=== PATIENT | male | born 1960 | race Caucasian/White ===

== ENCOUNTER 2021-02-23 11:55 | Emergency (ER) | payer MEDICAID, SELFPAY ==
[2021-02-23 11:57] VITALS: BP 170/117; PULSE 60; RESP 18; TEMP 36.3; O2SAT 96; BMI 31.1
[2021-02-23 12:19] VITALS: O2SAT 96
[2021-02-23] MEDS: morphine 10 MG/ML Syringe SC (13:10)
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
[2021-02-23 13:53] VITALS: BP 179/94; PULSE 75; RESP 18; O2SAT 96
[2021-02-23 14:08] LABS: Anion Gap 2 (5-15); BUN 20 mg/dL (7-18); BUN/Creat Ratio 11.6 RATIO (10-20); Calcium,Total 9.5 mg/dL (8.5-10.1); Chloride 105 mmol/L (98-107); Creatinine, Serum 1.73 mg/dL (0.70-1.30); EST Glomerular Filtration Rate 43 mL/min (>60); Est Glom Filt Rate - Afr Amer 52 mL/min (>60); Estimated Creatinine Clearance 49.84 ml/min; Glucose 93 mg/dL (74-106); Potassium 3.9 mmol/L (3.5-5.1); Sodium Level 139 mmol/L (136-145)
[2021-02-23 14:14] LABS: Prothrombin Time (Protime)PT. 12.5 SECONDS (11.7-14.9)
[2021-02-23 14:15] LABS: Partial Thromboplast Time 30.9 Seconds (24.1-36.2)
[2021-02-23 14:33] VITALS: BP 157/90; PULSE 75; RESP 18; O2SAT 96
--- NOTE | 2021-02-23 14:46 | ED.RN ---
DEENA BARTHOLOMEW NOTIFIED OF TRANSFER.
== END 2021-02-23 15:02 | disposition other institution (70) ==
PROVIDERS: Emergency Provider Emergency Medicine
DX: S22.081A Stable burst fracture of T11-T12 vertebra, initial encounter for closed fracture (principal); S92.902A Unspecified fracture of left foot, initial encounter for closed fracture; V47.0XXA Car driver injured in collision with fixed or stationary object in nontraffic accident, initial encounter; Y93.89 Activity, other specified; Y92.39 Other specified sports and athletic area as the place of occurrence of the external cause; Y99.9 Unspecified external cause status; Z20.822 Contact with and (suspected) exposure to COVID-19; I25.10 Atherosclerotic heart disease of native coronary artery without angina pectoris; I10 Essential (primary) hypertension; E78.5 Hyperlipidemia, unspecified; N40.0 Benign prostatic hyperplasia without lower urinary tract symptoms; K21.9 Gastro-esophageal reflux disease without esophagitis; F32.9 Major depressive disorder, single episode, unspecified; F17.210 Nicotine dependence, cigarettes, uncomplicated; Z79.82 Long term (current) use of aspirin; Z79.02 Long term (current) use of antithrombotics/antiplatelets; Z79.899 Other long term (current) drug therapy; I25.2 Old myocardial infarction; Z95.5 Presence of coronary angioplasty implant and graft
CPT/HCPCS: 80048; 85610; 85730; 87426; 96372; 99285; A4216

== ENCOUNTER → 2023-02-26 | Outpatient (CLI) | payer MEDICAID, SELFPAY ==
[2023-02-26 17:19] LABS: Absolute Lymphocyte Count 1.59 X10^3/uL (0.83-4.51); Absolute Neutrophil Count 5.1 X10^3/uL (2.0-7.7); Basophil# 0.07 X10^3/uL; Basophil% 0.9 % (0-1); Eosinophils% 1.3 % (0-5); Hematocrit 45.7 % (40-54); Hemoglobin 15.2 g/dL (13.0-16.5); Lymphocyte # 1.59 X10^3/ul (0.83-4.51); Lymphocyte % 20.9 % (19-41); Mean Corp Hgb Conc 33.3 g/dL (32-36); Mean Corpuscular Hgb 33.7 pg (27.0-32.0); Mean Corpuscular Volume 101.3 fL (80-94); Mean Platelet Vol. 11.2 fl (6.2-12.0); Monocyte# 0.74 X10^3/uL; Monocyte% 9.7 % (0-10); NRBC Flagged by Analyzer 0 % (0-5); Neutrophil # 5.09 X10^3/uL (2.7-7.7); Neutrophil % 66.9 % (47-70); Platelet Count 296 K/mm3 (150-450); RBC Distribution Width CV 15.5 % (11.6-14.6); RBC Distribution Width SD 57.2 fl (35.1-43.9); Red Blood Count 4.51 M/mm3 (4.6-6.2); White Blood Count 7.6 K/mm3 (4.4-11.0)
[2023-02-26 17:35] LABS: AST(SGOT) 14 U/L (15-37); Alanine Aminotransfer ALT/SGPT 26 U/L (16-61); Albumin, Serum 3.8 g/dL (3.2-5.0); Alkaline Phosphatase 94 U/L (45-117); Anion Gap 5 (5-15); BUN 15 mg/dL (7-18); BUN/Creat Ratio 8.2 RATIO (10-20); Calcium,Total 9.1 mg/dL (8.5-10.1); Chloride 107 mmol/L (98-107); Creatinine, Serum 1.83 mg/dL (0.70-1.30); EST Glomerular Filtration Rate 40 mL/min (>60); Est Glom Filt Rate - Afr Amer 48 mL/min (>60); Globulin 3.7 g/dL (2.2-4.2); Glucose 105 mg/dL (74-106); PSA,Total - Annual Screen 1.13 ng/mL (0.00-4.00); Potassium 4.1 mmol/L (3.5-5.1); Protein, Total 7.5 g/dL (6.4-8.2); Sodium Level 140 mmol/L (136-145)
[2023-02-26 18:05] LABS: Hepatitis C Antibody Non-Reactive (Nonreactive)
== END | disposition home or self-care (01) ==
LOC: POLAB3 16:22
PROVIDERS: Visit Provider Family Medicine Geriatric Medicine
DX: E03.9 Hypothyroidism, unspecified (principal); I48.91 Unspecified atrial fibrillation; E78.5 Hyperlipidemia, unspecified; Z12.5 Encounter for screening for malignant neoplasm of prostate
CPT/HCPCS: 84153; 36415; 80053; 84403; 84443; 85025; 86803; G0103

== ENCOUNTER → 2023-03-27 | Outpatient (CLI) | payer MEDICAID, SELFPAY ==
--- NOTE | 2023-03-28 10:10 | SPIR_ITS ---
Spirometry PFT Testing Spirometry PFT Testing: COMPLETE PULMONARY FUNCTION TEST INTERPRETATION Brief HPI: Patient is a 62-year-old male, currently under the care of Dr. Dukes, who presents to [facility] for complete pulmonary function tests secondary to diagnosis of nicotine dependence. Respiratory therapist reports good effort and reproducible results. Interpretation: Forced expiration spirometry shows no large airways obstructive ventilatory defect with an FEV1 of 110% predicted. There is no significant bronchodilator response by strict ATS criteria. Spirograms are of good quality and plateau normally. The respiratory flow volume loop shows a normal pattern. No previous pulmonary function tests were available for review. Impression: Normal spirometry
== END | disposition home or self-care (01) ==
PROVIDERS: PCP Family Medicine Geriatric Medicine; Referring Provider Family Medicine Geriatric Medicine; Visit Provider Family Medicine Geriatric Medicine
DX: R06.02 Shortness of breath (principal); E11.9 Type 2 diabetes mellitus without complications; I10 Essential (primary) hypertension; E55.9 Vitamin D deficiency, unspecified; E05.90 Thyrotoxicosis, unspecified without thyrotoxic crisis or storm
CPT/HCPCS: 36415; 80061; 84403; 94010; 94060

== ENCOUNTER → 2023-03-27 | Outpatient (CLI) | payer MEDICAID, SELFPAY ==
[2023-03-27 17:44] LABS: Cholesterol 139 mg/dL (200); High Density Lipoprotein 33 mg/dL; Triglycerides 186 mg/dL; Very Low Density Lipoprotein 37 mg/dL (5-40)
== END | disposition home or self-care (01) ==
LOC: POLAB3 15:07
PROVIDERS: PCP Family Medicine Geriatric Medicine; Visit Provider Family Medicine Geriatric Medicine
DX: E78.5 Hyperlipidemia, unspecified (principal); N52.9 Male erectile dysfunction, unspecified
CPT/HCPCS: 36415; 80061; 84403

== ENCOUNTER → 2023-05-30 | Outpatient (CLI) | payer MEDICAID, SELFPAY ==
[2023-05-30 16:16] LABS: Absolute Lymphocyte Count 1.74 X10^3/uL (0.83-4.51); Basophil# 0.12 X10^3/uL; Basophil% 1.6 % (0-1); Eosinophils% 1.3 % (0-5); Hematocrit 48.3 % (40-54); Lymphocyte # 1.74 X10^3/ul (0.83-4.51); Lymphocyte % 22.5 % (19-41); Mean Corp Hgb Conc 33.1 g/dL (32-36); Mean Corpuscular Hgb 32.4 pg (27.0-32.0); Mean Corpuscular Volume 97.8 fL (80-94); Mean Platelet Vol. 11.4 fl (6.2-12.0); Monocyte# 0.79 X10^3/uL; Monocyte% 10.2 % (0-10); NRBC Flagged by Analyzer 0 % (0-5); Neutrophil # 4.95 X10^3/uL (2.7-7.7); Neutrophil % 63.9 % (47-70); Platelet Count 291 K/mm3 (150-450); RBC Distribution Width CV 15.7 % (11.6-14.6); RBC Distribution Width SD 56.6 fl (35.1-43.9); Red Blood Count 4.94 M/mm3 (4.6-6.2); White Blood Count 7.7 K/mm3 (4.4-11.0)
[2023-05-30 19:49] LABS: ALB/GLOB Ratio 0.9 RATIO (0.9-2.4); AST(SGOT) 16 U/L (15-37); Alanine Aminotransfer ALT/SGPT 32 U/L (16-61); Albumin, Serum 3.7 g/dL (3.2-5.0); Alkaline Phosphatase 78 U/L (45-117); Anion Gap 9 (5-15); BUN 21 mg/dL (7-18); BUN/Creat Ratio 11.8 RATIO (10-20); Calcium,Total 8.7 mg/dL (8.5-10.1); Chloride 107 mmol/L (98-107); Cholesterol 275 mg/dL (200); Creatinine, Serum 1.78 mg/dL (0.70-1.30); EST Glomerular Filtration Rate 41 mL/min (>60); Est Glom Filt Rate - Afr Amer 50 mL/min (>60); Globulin 4.3 g/dL (2.2-4.2); Glucose 133 mg/dL (74-106); High Density Lipoprotein 42 mg/dL; Sodium Level 142 mmol/L (136-145); Triglycerides 417 mg/dL
== END | disposition home or self-care (01) ==
LOC: POLAB3 14:55
PROVIDERS: PCP Family Medicine Geriatric Medicine; Visit Provider Family Medicine Geriatric Medicine
DX: R33.9 Retention of urine, unspecified (principal); R53.83 Other fatigue
CPT/HCPCS: 36415; 80053; 80061; 84443; 85025; 87086

== ENCOUNTER → 2023-06-19 | Outpatient (CLI) | payer MEDICAID, SELFPAY ==
[2023-06-19 12:12] LABS: Bacteria 0 SEEN /hpf (None Seen); Mucous, Urine 0 SEEN /hpf (<or=2+); Red Blood Cells-Urine 0 SEEN /hpf (0-5)
[2023-06-19 13:31] LABS: Color, Urine Yellow (Yellow); Glucose, Dipstick Normal (Normal); Ketone-Dipstick Negative (Negative); Leukocyte Esterase-Dipstick 25 /ul (Negative); Nitrite-Dipstick Negative (Negative); Occult Blood-Urine 10 /ul (Negative); Protein-Dipstick 30 mg/dl (Negative); Specific Gravity, Urine 1.015 (1.002-1.030); Urine Bilirubin Dipstick Negative (Negative); Urine Clarity Clear (Clear); Urine Urobilinogen Normal (Normal)
[2023-06-19 13:36] LABS: Hyaline Cast 0-5 SEEN /lpf (0-5); Squamous Epithelial Cells - UA 0-5 SEEN /hpf (0-5); White Blood Cells 0-5 SEEN /hpf (0-5)
== END | disposition home or self-care (01) ==
LOC: LABSPEC 12:05
PROVIDERS: PCP Family Medicine Geriatric Medicine; Visit Provider Family Medicine Geriatric Medicine
DX: N18.32 Chronic kidney disease, stage 3b (principal)
CPT/HCPCS: 81001

== ENCOUNTER → 2023-07-04 | Outpatient (CLI) | payer MEDICAID, SELFPAY ==
--- OUTSIDE RECORDS SUMMARY | 2023-07-04 17:26 | XMS RPT_ITS | CCD ---
Author Name Unknown Address [address] [place] [address] Organization [facility] Care Team Providers Care Cone Runner Name Role Phone Unavailable Primary Care Provider Lamberto Levy Primary Care Provider ELGIN SALMERON, DR MUELLER Primary Care Physician [phone] Unavailable Primary Care Provider Lamberto Levy MD Primary Care Provider [phone] ELGIN SALMERON, DR MUELLER Attending Unavailable ROMAR DO, DR MUELLER Primary Care Unavailable ROMAR DO, DR MUELLER Attending Unavailable ROMAR DO, DR MUELLER Primary Care Unavailable EFRAINAR , DR MUELLER Attending Unavailable ELGIN DO, DR MUELLER Primary Care Unavailable EFRAINAR DO, DR MUELLER Attending Unavailable ROMAR DO, DR MUELLER Primary Care Unavailable EFRAINAR , DR MUELLER Attending Unavailable ELGIN SALMERON, DR MUELLER Primary Care Unavailable Medications Current Medications Medication Drug Class(es) Dates Sig (Normalized) Sig (Original) acetaminophen 325 mg oral tablet (1 source) Start: 05-10-2019 650 mg, Oral, EVERY 4 HOURS PRN, Pain Mild (1-3), Fever, For temp greater than 100.5 F (38 C), Starting 05/10/19 at 1335 Maximum dose of acetaminophen is 4000 mg from all sources in 24 hours. aluminum hydroxide 40 mg/ml / magnesium hydroxide 40 mg/ml / simethicone 4 mg/ml oral suspension (1 source) Start: 05-13-2019 aluminum & magnesium hydroxide-simethic one (MAALOX) 200-200-20 MG/5ML suspension 30 mL amLODIPine 10 mg oral tablet (12 sources) Dihydropyridine Calcium Channel Surya Start: 02-23-2021 amLODIPine 10 mg oral tablet Dose : 10 mg = 1 tab(s), Oral, qDay Start Date: 02/23/21 Status: Ordered Completed/Discontinued Medications Medication Drug Class(es) Dates Sig (Normalized) Sig (Original) Albuterol (7 sources) beta2-Adrenergic Agonist Start: 06-09-2021 End: 09-07-2021 take 2 puff(s) by inhalation every four hours as needed for wheezing Ventolin HFA MDI (90 mcg/inh) inhalation aerosol 2 puff(s), Inhalation, q4h, PRN Shortness of breath or wheezing, use with spacer chamber, PHARMACY PLEASE DISPENSE, # 1 EA, 2 Refill(s), Pharmacy: [facility], 179, cm, 06/09/21 14:03:00 EST, Height, kg, 06/09/21 14:03:00 EST, Dosing Weight Start Date: 06/09/21 Stop Date: 09/07/21 Status: Ordered aspirin 81 mg delayed release oral tablet (15 sources) Platelet Aggregation Inhibitor, Nonsteroidal Anti-inflammatory Drug Start: 12-21-2021 End: 06-19-2022 aspirin 81 mg oral delayed release tablet Dose : 81 mg = 1 tab(s), Oral, qDay, do not crush or chew, # 90 tab(s), 1 Refill(s), Pharmacy: [facility] , 178, cm, 12/21/21 14:24:00 EDT, Height Start Date: 12/21/21 Stop Date: 06/19/22 Status: Ordered Problems Active Problems Problem Classification Problem Date Documented Da te Episodic/Chronic Acute and unspecified renal failure (4 sources) Chronic renal failure 03-26-2021 Chronic Acute and unspecified renal failure (4 sources) Acute injury of kidney; Translations: [AISHWARYA (acute kidney injury) ([facility])] 05-11-2019 Acute myocardial infarction (5 sources) Myocardial infarction; Translations: [NSTEMI (non-ST elevated myocardial infarction) ([facility])] 05-10-2019 Chronic Anxiety disorders (8 sources) Mixed anxiety and depressive disorder 04-19-2021 Chronic Bacterial infection; unspecified site (7 sources) Streptococcus agalactiae infection 07-03-2021 Episodic Chronic kidney disease (11 sources) Chronic kidney disease stage 3; Translations: [Chronic kidney disease stage 3B ] Onset: 08-11-2019 08-11-2019 Chronic Conditions associated with dizziness or vertigo (8 sources) Vertigo 05-03-2021 Episodic Conduction disorders (4 sources) Prolonged QT interval 12-22-2021 Chronic Congestive heart failure; nonhypertensive (12 sources) Congestive heart failure; Translations: [Acute exacerbation of chronic congestive heart failure] Onset: 06-17-2019 06-17-2019 Chronic Coronary atherosclerosis and other heart disease (13 sources) Coronary arteriosclerosis; Translations: [CAD (coronary artery disease)] 08-03-2016 Chronic Deficiency and other anemia (9 sources) Anemia 03-26-2021 Episodic Diabetes mellitus without complication (4 sources) Diabetes mellitus; Translations: [Diabetes] 08-03-2016 Chronic Diabetes mellitus without complication (9 sources) Prediabetes; Translations: [Prediabetes] 04-19-2021 Episodic Disorders of lipid metabolism (15 sources) Hyperlipidemia; Translations: [Hyperlipidemia, unspecified] 05-11-2019 Chronic Essential hypertension (16 sources) Hypertensive disorder; Translations: [Essential hypertension] 08-03-2016 Chronic Genitourinary symptoms and ill-defined conditions (8 sources) Increased frequency of urination 04-19-2021 Episodic Heart valve disorders (8 sources) Irregular heart beat 05-09-2021 Episodic Hypertension with complications and secondary hypertension (1 source) Chronic kidney disease due to hypertension; Translations: [Hypertensive chronic kidney disease with stage 1 through stage 4 chronic kidney disease, or unspecified chronic kidney disease] Chronic Malaise and fatigue (9 sources) Fatigue 03-27-2021 Episodic Mood disorders (4 sources) Major depressive disorder; Translations: [Major depressive disorder] Onset: 10-03-2018 10-03-2018 Chronic Mycoses (6 sources) Onychomycosis 09-12-2021 Episodic Nonspecific chest pain (1 source) Chest pain; Translations: [Chest pain, unspecified type] Episodic Nutritional deficiencies (8 sources) Cobalamin deficiency 05-09-2021 Episodic Other circulatory disease (8 sources) H/O: myocardial problem 04-19-2021 Episodic Other lower respiratory disease (8 sources) Snoring 05-09-2021 Episodic Other lower respiratory disease (7 sources) Dyspnea on exertion 06-09-2021 Episodic Other male genital disorders (10 sources) Impotence; 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] Onset: 06-17-2019 08-11-2019 Chronic Other male genital disorders (1 source) Vasculopathic erectile dysfunction; 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] Onset: 06-17-2019 08-11-2019 Chronic Other non-traumatic joint disorders (7 sources) Hip pain 06-09-2021 Episodic Other nutritional; endocrine; and metabolic disorders (8 sources) Overweight 05-03-2021 Episodic Other screening for suspected conditions (not mental disorders or infectious disease) (8 sources) Increased glucose level 03-26-2021 Episodic Phlebitis; thrombophlebitis and thromboembolism (9 sources) Deep venous thrombosis of lower extremity 03-26-2021 Episodic Residual codes; unclassified (4 sources) Tobacco user; Translations: [Tobacco abuse] 05-11-2019 Chronic Residual codes; unclassified (1 source) Hypersomnia 09-21-2022 Chronic Residual codes; unclassified (8 sources) Difficulty sleeping 05-09-2021 Episodic Residual codes; unclassified (8 sources) Edema of left lower limb 04-19-2021 Episodic Residual codes; unclassified (8 sources) Peripheral edema 04-19-2021 Episodic Residual codes; unclassified (3 sources) Noncompliance with treatment 02-22-2022 Episodic Residual codes; unclassified (4 sources) Poor hypertension control; Translations: [Poor hypertension control] Onset: 05-11-2019 05-11-2019 Screening and history of mental health and substance abuse codes (8 sources) Ex-smoker 04-19-2021 Episodic Substance-related disorders (4 sources) Nicotine dependence; Translations: [Nicotine dependence] 08-03-2016 Chronic Thyroid disorders (20 sources) Hypothyroidism; Translations: [Goiter] 04-19-2021 Chronic Unclassified (8 sources) Fracture of twelfth thoracic vertebra 04-17-2021 Past or Other Problems Problem Classification Problem Date Documented Da te Episodic/Chronic Acute and unspecified renal failure (4 sources) Acute tubular necrosis; Translations: [Acute injury of kidney] Onset: 05-14-2019 05-14-2019 Episodic Residual codes; unclassified (1 source) Tobacco user 05-11-2019 Episodic Residual codes; unclassified (1 source) Poor hypertension control Onset: 05-11-2019 05-11-2019 Episodic Unclassified (3 sources) Patient encounter status; Translations: [Encounter for screening for malignant neoplasm of colon] Onset: 06-17-2019 Resolved: 07-17-2019 07-17-2019 Results Test Name Value Interpretation Reference Range Facil ity Vital Signs Date Time Vital Sign Value Performing Clinician Vivek la 05-14-2019 07:47-0500 Body Temperature 98.6 [degF] [place], [place] 05-14-2019 07:47-0500 BP Diastolic 69 mm[Hg] [place], [place] 05-14-2019 07:47-0500 BP Systolic 135 mm[Hg] [place] 05-14-2019 07:47-0500 Pulse (Heart Rate) 56 /min [place], [place] 05-14-2019 07:47-0500 Pulse Oximetry 95 % [place] 05-14-2019 07:47-0500 Respiratory Rate 8 /min [place], [place] 05-14-2019 06:12-0500 BMI (Body Mass Index) 31.64 kg/m2 [place], [place] 05-14-2019 06:12-0500 Body weight 88.91 kg [place] 05-10-2019 09:06-0500 Height 167.6 cm [place] Encounters Encounter Date Encounter Type Care Provider Facility Start: 09-28-2022 End: 09-29-[address] AMI EISENBERG DO Facility:[facility] Start: 09-28-2022 End: 09-28-[address] AMI EISENBERG DO [facility] Start: 03-07-2022 End: 03-08-[address] AMI EISENBERG DO Facility:[facility] Start: 03-07-2022 End: 03-07-[address] AMI EISENBERG DO [facility] Start: 02-19-2022 End: 02-20-[address] AMI EISENBERG DO Facility:[facility] Start: 02-19-2022 End: 02-19-[address] AMI EISENBERG DO [facility] Start: 12-21-2021 End: 12-22-[address] AMI EISENBERG DO Facility:[facility] Start: 12-21-2021 End: 12-21-[address] AMI EISENBERG DO [facility] Start: 11-03-[address] AMI EISENBERG DO Facili ty:B Start: 10-02-2021 End: 10-02-[address] AMI EISENBERG DO [facility] Start: 08-18-2021 Telephone encounter Shawna jimenez MD Work Phone: [facility] Procedures Date Procedure Procedure Detail Performing Clinician Start: 04-10-[address] ZEINA SPARKS MD Plan of Treatment Date Care Activity Detail Author Start: 04-11-2021 Influenza vaccination Flu vaccine (# 1) [place], [place] Immunizations Immunization Date Immunization Notes Care Provider Moira lomax 05-03-2015 influenza virus vaccine, unspecified formulation DR AMI EISENBERG DO [facility] 02-02-2011 tetanus toxoid, redu ankit diphtheria toxoid, and acellular pertussis vaccine, adsorbed Mariza Richardson [place], [place] Payers Date Payer Category Payer Unknown [id number] 2021 Medicaid [place] [employer] [employer] [id number] 2021-Present [phone] [place] [id number] Medicaid [id number] 1960 Unknown [id number] 1960 Unknown [id number] 1960 Unknown [id number] 1960 Unknown [id number] 1960 Unknown [id number] Social History Date Type Detail Facility Start: 06-17-1980 End: 07-23-2019 Tobacco smoking status NHIS Current every day smoker [place], [place] Start: 05-11-2019 End: 07-23-2019 Alcohol intake Current non-drinker of alcohol (finding) [place], [place] Start: 1960 Sex Assigned At Not on file [place], [place] Start: 06-17-1980 History of tobacco use Cigarette Smo ker [facility] Work Phone: Start: 07-23-2019 End: 02-03-2020 Cigarettes smoked current (pack per day) - Reported [facility] Work Phone: Start: 02-03-2020 End: 04-11-2020 Tobacco use and exposure Never used [place], [place] Start: 07-23-2019 History 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 5 [facility] Work Phone: Start: 07-23-2019 History SDOH Food Worry 1 [facility] Work Phone: Start: 07-23-2019 History SDOH Transpo rt Med 2 [facility] Work Phone: Start: 03-27-2021 End: 04-19-2021 Ex-smoker (finding) [facility] Sex Assigned At [facility] Start: 07-18-2021 End: 08-17-2021 Exposure to SARS-CoV-2 (event) Not sure [facility] Clinical Notes 09-11-2021 to 10-02-2021 LaboratoryRadiologyTelephone Encounter - Arianne Jonelle Ciara - 09/11/2021 4:43 PM EDTTelephone Encounter - Tamera Kael - 08/22/2021 9:27 AM ESTTelephone Encounter - Arianne Jonelle Ciara - 08/18/2021 9:30 AM EST Note Date & Type Note Facility 10-02-2021 Evaluation + Plan note Diagnostic Tests PendingMethylmalonic Acid 10/02/21Intrinsic Factor Blocking Antibody 10/02/21Gastrin Level 10/02/21PTH, Intact 10/02/21 Future Scheduled TestsBasic Metabolic Panel 05/09/21Basic Metabolic Panel 04/03/21Basic Metabolic Panel 05/01/21Basic Metabolic Panel 05/29/21Basic Metabolic Panel 06/26/21Thyroid Stimulating Hormone 09/05/21Complete Blood Count 09/05/21Lipid Profile 09/05/21Complete Metabolic Panel 09/05/21N-Terminal proBNP 09/05/21N-Terminal proBNP 04/03/21N-Terminal proBNP 05/01/21N-Terminal proBNP 05/29/21N-Terminal proBNP 06/26/21CT Thorax w/o Contrast 06/09/21XR Chest 2 Views (PA & Lateral) 09/12/21XR Spine Lumbar 1 View 07/03/21 [facility] 09-11-2021 Miscellaneous Notes Ending letter Arianne Urbina September 11, 2021 4:43 PM 3rd attempt unable to leave message. Thank you Tamera Scruggs August 22, 2021 9:27 AM 2nd attempt to contact patient Unable to leave VM, phone rings without answer August 21, 2021 10:26 AM Anabella Castano PSS Lm to call to schedule ov for Hasimoto thyroiditis by [facility] in [facility] Arianne Urbina August 18, 2021 9:34 AM documented in this encounter [facility] Evaluation + Plan note Future Appointments Appointment Date:06/09/2021 02:00:00 PM Scheduled Provider:AMI EISENBERG DO Location:[facility] Appointment Type:PC OV Appointment Date:06/12/2021 02:20:00 PM Scheduled Provider:LISETTE RAY Location:[facility] Appointment Type:[facility] PIPE FINISHING SUPERVISOR Appointment Date:06/27/2021 02:30:00 PM Scheduled Provider:AMI EISENBERG DO Location:[facility] Appointment Type:PC OV Appointment Date:07/03/2021 12:45:00 PM Scheduled Provider:NICHOLE KHAN MD Location:[facility] Appointment Type:NS OV Future Scheduled TestsBasic Metabolic Panel 04/03/21Basic Metabolic Panel 05/01/21Basic Metabolic Panel 05/29/21Basic Metabolic Panel 06/26/21Basic Metabolic Panel 05/09/21Gastrin Level 05/09/21Thyroid Stimulating Hormone 09/05/21N-Terminal proBNP 04/03/21N-Terminal proBNP 05/01/21N-Terminal proBNP 05/29/21N-Terminal proBNP 06/26/21N-Terminal proBNP 09/05/21Complete Blood Count 09/05/21Lipid Profile 09/05/21Intrinsic Factor Blocking Antibody 05/09/21Methylmalonic Acid 05/09/21Complete Metabolic Panel 09/05/21XR Spine Lumbar 1 View 07/03/21 [facility] Evaluation + Plan note Future Appointments Appointment Date:09/12/2021 03:30:00 PM Scheduled Provider:AMI EISENBERG DO [facility] Appointment Type:PC OV Follow Up Future Scheduled TestsBasic Metabolic Panel 04/03/21Basic Metabolic Panel 05/01/21Basic Metabolic Panel 05/29/21Basic Metabolic Panel 06/26/21Basic Metabolic Panel 05/09/21Gastrin Level 05/09/21Thyroid Stimulating Hormone 09/05/21N-Terminal proBNP 04/03/21N-Terminal proBNP 05/01/21N-Terminal proBNP 05/29/21N-Terminal proBNP 06/26/21N-Terminal proBNP 09/05/21Complete Blood Count 09/05/21Lipid Profile 09/05/21Intrinsic Factor Blocking Antibody 05/09/21Methylmalonic Acid 05/09/21Complete Metabolic Panel 09/05/21CT Thorax w/o Contrast 06/09/21XR Spine Lumbar 1 View 07/03/21 [facility] Evaluation + Plan note Future Appointments Appointment Date:01/03/2022 11:30:00 AM Scheduled Provider: Location:[facility] Appointment Type:CV OV Appointment Date:02/22/2022 02:30:00 PM Scheduled Provider:AMI EISENBERG DO Location:[facility] Appointment Type:PC OV Future Scheduled TestsBasic Metabolic Panel 11/08/21Basic Metabolic Panel 12/06/21Basic Metabolic Panel 01/03/22Basic Metabolic Panel 01/31/22Basic Metabolic Panel 11/09/21Basic Metabolic Panel 05/09/21Basic Metabolic Panel 04/03/21Basic Metabolic Panel 05/01/21Basic Metabolic Panel 05/29/21Basic Metabolic Panel 06/26/21Thyroid Stimulating Hormone 09/05/21Complete Blood Count 09/05/21Lipid Profile 09/05/21Complete Metabolic Panel 09/05/21N-Terminal proBNP 09/05/21N-Terminal proBNP 11/08/21N-Terminal proBNP 12/06/21N-Terminal proBNP 01/03/22N-Terminal proBNP 01/31/22N-Terminal proBNP 04/03/21N-Terminal proBNP 05/01/21N-Terminal proBNP 05/29/21N-Terminal proBNP 06/26/21CT Thorax w/o Contrast 06/09/21XR Chest 2 Views (PA & Lateral) 09/12/21XR Spine Lumbar 1 View 07/03/21 [facility] Evaluation + Plan note Future Appointments Appointment Date:04/12/2021 02:00:00 PM Scheduled Provider:AMI EISENBERG DO Location:[facility] Appointment Type:PC PIPE FINISHING SUPERVISOR Appointment Date:04/17/2021 10:15:00 AM Scheduled Provider:NICHOLE KHAN MD Location:[facility] Appointment Type:NS OV Future Scheduled TestsBasic Metabolic Panel 04/03/21Basic Metabolic Panel 05/01/21Basic Metabolic Panel 05/29/21Basic Metabolic Panel 06/26/21N-Terminal proBNP 04/03/21N-Terminal proBNP 05/01/21N-Terminal proBNP 05/29/21N-Terminal proBNP 06/26/21XR Spine Lumbar 1 View 03/29/21 [facility] Evaluation + Plan note Future Appointments Appointment Date:02/22/2022 02:30:00 PM Scheduled Provider:AMI EISENBERG DO Location:[facility] Appointment Type:PC OV Future Scheduled TestsBasic Metabolic Panel 11/08/21Basic Metabolic Panel 12/06/21Basic Metabolic Panel 01/03/22Basic Metabolic Panel 01/31/22Basic Metabolic Panel 11/09/21Basic Metabolic Panel 05/09/21Basic Metabolic Panel 04/03/21Basic Metabolic Panel 05/01/21Basic Metabolic Panel 05/29/21Basic Metabolic Panel 06/26/21Thyroid Stimulating Hormone 09/05/21Complete Blood Count 09/05/21Lipid Profile 09/05/21Complete Metabolic Panel 09/05/21N-Terminal proBNP 09/05/21N-Terminal proBNP 11/08/21N-Terminal proBNP 12/06/21N-Terminal proBNP 01/03/22N-Terminal proBNP 01/31/22N-Terminal proBNP 04/03/21N-Terminal proBNP 05/01/21N-Terminal proBNP 05/29/21N-Terminal proBNP 06/26/21CT Thorax w/o Contrast 06/09/21XR Chest 2 Views (PA & Lateral) 09/12/21XR Spine Lumbar 1 View 07/03/21 [facility] Evaluation + Plan note Future Appointments Appointment Date:05/30/2022 02:30:00 PM Scheduled Provider:AMI EISENBERG DO Location:[facility] Appointment Type:PC Wellness Annual Future Scheduled TestsBasic Metabolic Panel 11/08/21Basic Metabolic Panel 12/06/21Basic Metabolic Panel 01/03/22Basic Metabolic Panel 01/31/22Basic Metabolic Panel 11/09/21Basic Metabolic Panel 05/09/21Thyroid Stimulating Hormone 09/05/21Complete Blood Count 09/05/21Lipid Profile 09/05/21Complete Metabolic Panel 09/05/21N-Terminal proBNP 09/05/21N-Terminal proBNP 11/08/21N-Terminal proBNP 12/06/N-Terminal proBNP 01/03/22N-Terminal proBNP 01/31/22CT Thorax w/o Contrast 06/09/21XR Chest 2 Views (PA & Lateral) 09/12/21XR Spine Lumbar 1 View 07/03/21 [facility] Evaluation + Plan note Future Appointments Appointment Date:12/14/2022 02:30:00 PM Scheduled Provider:AMI EISENBERG DO Location:[facility] Appointment Type:PC OV Future Scheduled TestsBasic Metabolic Panel 11/08/21Basic Metabolic Panel 12/06/21Basic Metabolic Panel 01/03/22Basic Metabolic Panel 01/31/22Basic Metabolic Panel 11/09/21Prostate Specific Antigen 09/21/N-Terminal proBNP 11/08/21N-Terminal proBNP 12/06/22N-Terminal proBNP 01/03/N-Terminal proBNP 01/31/22 [facility] Hospital course Narrative No data available for this section [facility] Hospital Discharge instructions No data available for this section [facility] Progress note No data available for this section [facility] Reason for Referral Status Reason Specialty Diagnoses / Procedures Referred By Contact Referred To Contact [facility] Specialty Services Required Cardiac Rehabilitation Diagnoses NSTEMI (non-ST elevated myocardial infarction) (HCC) Chidi Reyes APRN - OBSTETRICS TEACHER [address] [place] [address] [facility] [address] [place] [address] Scheduling Instructions [facility] [address] [place] [address] Discharge Instructions * Discharge Instr - Lab* Justina Martin, RN - 05/11/2019 9:54 AM EST [facility] [phone] offer services including medical, dental, [facility], behavioral health and a reduced-rate pharmacy. Fees are based on current income and family size. * Additional Instructions* Rosario Melgar RN - 05/12/2019 [facility] NURSING DISCHARGE QUICK REFERENCE TOOL Discharge Date: 05/14/19 Patient Name: Jacqueline Garner Support Person/ Primary Emergency Contact: [place] Whalen, Trevor Diagnosis: NSTEMI (non-ST elevated myocardial infarction) (HCC) [I21.4] Self monitoring: Weigh yourself daily. Perform after waking and using the toilet. Keep clothing consistent and record. Check Blood Pressure twice a day (morning and late afternoon) and record. Weight Management: If your BMI (Body Mass Index) is greater than 25, you can enroll in a weight management program to improve your health. BMI: Body mass index is 31.64 kg/m . Diet: HEART HEALTHY DIET Low Salt/Sodium 1500 - 2000mg/day No table salt, avoid processed/prepackaged foods (hot dogs, canned soups, salted snacks, pickles, olives.) Low Cholesterol (Saturated fats) Choose Skim and Low Fat dairy products, lean meats - poultry and fish, venison. Look at nutrition labels and serving sizes. Special Instructions or Labwork: you may right click mouse in this field, Learning About Benefits From Quitting Smoking How does quitting smoking make you healthier? If you're thinking about quitting smoking, you may have a few reasons to be smoke-free. Your healthmay be one of them. When you quit smoking, you lower your risks for cancer, lung disease, heart attack, stroke, blood vessel disease, and blindness from macular degeneration. When you're smoke-free, you get sick less often, and you heal faster. You are less likely to get colds, flu, bronchitis, and pneumonia. As a nonsmoker, you may find that your mood is better and you are less stressed. When and how will you feel healthier? Quitting has real health benefits that start from day 1 of being smoke-free. And the longer you stay smoke-free, the healthier you get and the better you feel. The first hours After just 20 minutes, your blood pressure and heart rate go down. That means there's less stress on your heart and blood vessels. Within 12 hours, the level of carbon monoxide in your blood drops back to normal. That makes room for more oxygen. With more oxygen in your body, you may notice that you have more energy than when you smoked. After 2 weeks Your lungs start to work better. Your risk of heart attack starts to drop. After 1 month When your lungs are clear, you cough less and breathe deeper, so it's easier to be active. Your sense of taste and smell return. That means you can enjoy food more than you have since you started smoking. Over the years After 1 year, your risk of heart disease is half what it would be if you kept smoking. After 5 years, your risk of stroke starts to shrink. Within a few years after that, it's about the same as if you'd never smoked. After 10 years, your risk of dying from lung cancer is cut by about half. And your risk for many other types of cancer is lower too. How would quitting help others in your life? When you quit smoking, you improve the health of everyone who now breathes in your smoke. Their heart, lung, and cancer risks drop, much like yours. They are sick less. For babies and small children, living smoke-free means they're less likely to have ear infections, pneumonia, and bronchitis. If you're a woman who is or will be someday, quitting smoking means a healthier . Children who are close to you are less likely to become adult smokers. Where can you learn more? Go to [email or web address] [email or web address] and sign in to your [employer] account. Enter O319 in the Search Health Information box to learn more about Learning About Benefits From Quitting Smoking. If you do not have an account, please click on the Sign Up Now link. Current as of: March 26, 2018 Content Version: [id number] [employer]. Care instructions adapted under license by [employer]. If youhave questions about a medical condition or this instruction, always ask your healthcare professional. [employer] disclaims any warranty or liability for your use of this information. Activity and Exercise: Walk every day. Start with 5 minutes a day. Slowly increase to a goal (ie. 10-30 minutes a day). Remember to rest when tired. If interested, register for Cardiac Rehab Orientation every Saturday at 11:30am. Scheduled: Location: [address] [place] [address], [address] [address] Follow Up Appointments: Please bring Photo ID, Insurance Cards, and a Current List of Medications to your appointments. Warehouse Traffic Supervisor: Dr. Mark Anthony Villaseñor MD at [address] [place] [address] [address] [place] [address] phone [phone] Appointment: 05/21/19 @ 1:30pm Primary Care: No primary care provider on file. Appointment: Need to make new patient appointment with Otf Darius Address: Smoking Cessation: You may register for Smoking Cessation Classes Location: [facility] Address:[address] [place] [id number], Conference room on 2nd floor. Phone: 24 HR Post Discharge Call: Date and time range: 05/15/19 between 9am-9pm IF YOU HAVE ANY QUESTIONS, CALL THE UNIT (HICU) AT [phone] Cardiac Rehab The Cardiac Rehabilitation Team at [facility] consists of highly skilled healthcare professionals, including nurses, physicians, dietitians, and exercise physiologists all working together to help you return to a healthy, and active lifestyle. As a survivor of heart disease the program is designed to answer all of your questions about the disease through education, activity, monitored exercise, diet modification, and medication adherence. This program is proven to reduce reoccurrence of heart disease and reduce readmission. It is important for you to enroll in the program by attending orientation. For any questions regarding this valuable service please call # [phone] Orientation is available on all Wednesdays at 1130 am location in the [address] Care of the catheter site Put ice or a cold pack on the area for 10 to 20 minutes at a time to help with soreness or swelling. Put a thin cloth between the ice and your skin. You may shower 24 to 48 hours after the procedure, if your doctor okays it. Pat the incision dry. Do not soak the catheter site until it is healed. May shower but don't take a bath for 1 week or submerge site in water. Watch for bleeding from the site. A small amount of blood (up to the size of a quarter) on the bandage can be normal. If you are bleeding, lie down and press on the area for 15 minutes to try to make it stop. If the bleeding does not stop, call your doctor or seek immediate medical care. documented in this encounter History of Present Illness * Rosario Melgar, RN - 05/14/2019 10:11 AM EST Patient refused due to financial situation. Cardiac Rehab Referral/Phase 1 Individuals with heart failure and coronary artery disease can greatly benefit from participation in a structured and monitored exercise regimen. Completion of a Cardiac Rehab Program (approximately 9-12 weeks) has been proven to reduce the riskof by 26-47% for patients with heart failure or acute coronary syndrome! Cardiac Rehab is not just about exercising but also offers education on self- management and wellness. Often patients have concerns about transportation and co-pays. The orientation is a free visit to see what Cardiac Rehab can offer to you. The individuals there can help determine costs and a programthat works best for you. If the barriers are too great, Cardiac Rehab can also offer a connection with a [employer] Employee at one of the [facility] that we are partnered with. We are committed to your healthand well-being. We will schedule you for the Orientation if you would like to hear more. Orientation is Wednesdays at 11:30 am located at the [address], [address], [place] [address]. (Below is an image of our Cardiac Rehab Orientation Referral Letter that is provided to the patient.) ACTION: IF PATIENT AGREES TO PARTICIPATE, NOTIFY CARDIAC REHAB VIA FAX/EMAIL. * Naun Villaseñor MD - 05/14/2019 7:54 AM EST CARDIOLOGY PROGRESS NOTE Chart and interval events reviewed. Reason for Visit Follow-up SUBJECTIVE: Jacqueline Garner states feeling well. He denies any chest pain or shortness of breath. He states he is really hoping to go home. SCHEDULED MEDICATIONS: sodium chloride flush 10 mL Intravenous 2 times per day metoprolol succinate 50 mg Oral Daily nicotine 1 patch Transdermal Daily hydrALAZINE 50 mg Oral 3 times per day ticagrelor 90 mg Oral BID amLODIPine 10 mg Oral Daily pantoprazole 40 mg Oral QAM AC sertraline 50 mg Oral Daily atorvastatin 80 mg Oral Nightly aspirin 81 mg Oral Daily Active Problems: AISHWARYA (acute kidney injury) (HCC) Poor hypertension control Hyperlipidemia Tobacco abuse NSTEMI (non-ST elevated myocardial infarction) ([facility]) Resolved Problems: * No resolved hospital problems. * Review of Systems: Review of Systems Constitutional: Negative for chills, diaphoresis and fever. Pt states he is feeling well and really wants to go home Respiratory: Negative for cough, shortness of breath and wheezing. Denies SOB Cardiovascular: Negative for chest pain, palpitations and leg swelling. Denies CP or palpitations Gastrointestinal: Negative for abdominal distention, abdominal pain, blood in stool, constipation, diarrhea, nausea and vomiting. Genitourinary: Negative for hematuria. Neurological: Negative for dizziness and syncope. VITAL SIGNS: Vitals: 05/14/19 0003 05/14/19 0320 05/14/19 0603 05/14/19 06 BP: 121/61 134/84 Pulse: 58 60 Resp: 15 12 Temp: 97.2 F (36.2 C) 97.2 F (36.2 C) TempSrc: Oral Oral SpO2: 95% 95% Weight: 196 lb (88.9 kg) Height: Intake/Output Summary (Last 24 hours) at 05/14/2019 0755 Last data filed at 05/14/2019 0612 Gross per 24 hour Intake 778 ml Output 0 ml Net 778 ml Patient Vitals for the past 96 hrs (Last 3 readings): Weight 05/14/19 0612 196 lb (88.9 kg) 05/13/19 0330 195 lb (88.5 kg) 05/12/19 0708 198 lb 6.4 oz (90 kg) Physical Exam: Physical Exam Vitals reviewed: well compensated. Constitutional: General: He is not in acute distress. Appearance: Normal appearance. He is well-developed. He is not diaphoretic. HENT: Mouth/Throat: Pharynx: No oropharyngeal exudate. Eyes: General: No scleral icterus. Right eye: No discharge. Left eye: No discharge. Neck: Thyroid: No thyromegaly. Vascular: No JVD. Cardiovascular: Rate and Rhythm: Normal rate and regular rhythm. Chest Wall: PMI is not displaced. Pulses: Normal pulses. Heart sounds: Normal heart sounds. No murmur. No gallop. Comments: Right and left radial cath site is CDI with dressing, no hematoma or bruit present on exam Pulmonary: Effort: No accessory muscle usage or respiratory distress. Breath sounds: Normal breath sounds. Abdominal: General: Bowel sounds are normal. There is no distension or abdominal bruit. Palpations: Abdomen is soft. There is no shifting dullness or hepatomegaly. Tenderness: There is no tenderness. Musculoskeletal: Normal range of motion. Comments: No edema BLE Skin: General: Skin is warm and dry. Neurological: Mental Status: He is alert and oriented to person, place, and time. Data: Scheduled Meds: Reviewed Continuous Infusions: CBC: Recent Labs 05/13/198 05/14/19 0600 WBC 11.3* 12.5* HGB 13.9 13.5 HCT 39.9* 39.5* PLT 242 229 BMP: Recent Labs 05/13/198 05/14/19 0600 NA 139 141 K 3.5 3.7 CL 112* 113* CO2 21* 21* BUN 19 25* CREATININE 1.58* 1.61* INR: No results for input(s): INR in the last 72 hours. No results for input(s): BNP in the last 72 hours. TSH: No results found for: TSH Cardiac Injury Profile: No results for input(s): CKTOTAL, CKMB, TROPONINI in the last 72 hours. Lipid Profile: Lab Results Component Value Date TRIG 168 05/12/2019 HDL 35 05/12/2019 CHOL 192 05/12/2019 EKG: See Report Telemetry Reviewed: SB- 58 Last Echo: 05/11/19- SUMMARY: 1. Left ventricle: Images were difficult. Systolic function is by visual assessment. The estimated ejection fraction is 45%. The inferior wall appears akinetic or hypokinetic as compared to other segments. Anterior wall appears to contract normally 2. Right ventricle: Systolic function is normal. 3. Left atrium: The atrium is mildly dilated. 4. Right atrium: The atrium is normal in size. 5. Mitral valve: Structurally normal valve. 6. Aortic valve: Structurally normal valve. Trileaflet. Cardiac Catheterization- 05/11/19 Procedures performed: # Percutaneous intervention on the 95% de jed stenosis in the mid LAD. Balloon angioplasty. Interventional IVUS examination. Stent placement. Balloon angioplasty. RECOMMENDATIONS: 1. Dual antiplatelet therapy uninterrupted for at least a year. 2. Aggressive medical management of CAD. 3. Aggressive CAD risk factor modification, including smoking cessation. 4. Staged intervention to RCA prior to discharge. 5. Cardiac rehabilitation. Cardiac Catheterization 05/13/19- GEORGINA x 2 RCA- final report is pending IMPRESSIONS/RECOMMENDATIONS: 1. NSTEMI - S/P GEORGINA to LAD 05/11/19 - staged intervention GEORGINA to RCA x 2 yesterday 05/13/19 - pt has remained CP free - aspirin and Brilinta continues- samples provided- I reinforced the importance of life long aspirin therapy and uninterrupted DAPT for a minimum of one year. - patient hydrated yesterday 0.9NS 125 ml/hr x 6 hours yesterday in preparation for his Cath today. 2. Mild LV dysfunction- EF- 45% - pt remains well compensated - metoprolol tartrate changed to Toprol XL 50 mg daily - will remain off ACEi at this time due to renal insuffiencey- will restart out pt once renal function stabilizes -hydralazine 50 mg three times daily continues 3. HTN - well controlled - Lisinopril 40 mg daily discontinued due to renal insuffiencey as stated above - Amlodipine 10 mg daily, metoprolol succinate 50 mg daily, and hydralazine 50 mg TID continues 3. HLP - high intensity statin Lipitor 80 mg daily - will reassess lipid/hepatic panel 6 weeks out pt 4. Tobacco abuse - started on Nicotine patch yesterday - will encourage cessation - may also be influencing anxiety 5. AISHWARYA - creatinine mildly elevated- will continue to closely monitor out pt, repeat BMP in 1 week 6. Disp- f/u appointment arranged with myself at the [facility] office 05/21/19 at 1:30 pm. Electronicallysigned by Kiara Morales APRN - OBSTETRICS TEACHER on 05/14/2019 at 7:55 AM I, Dr. Villaseñor, saw and evaluated the patient. I personally obtained the iraheta and critical portions ofthe history and physical exam. I reviewed the chart, the EMT I/85's documentation, and discussed the patient with the EMT I/85. I agree with the EMT I/85's medical decision making and have edited the note to reflect my clinical findings and my assessment and plan. He is doing well post complex PCI of his right coronary artery. At this point I think he is good radha discharged. The importance of compliance with his medicines was stressed. Also smoking cessationwas stressed. He will go home on Brilinta for now. Eventually we'll have to switch him to Plavix due to cost. His creatinine is stable. * Alon Fernandez MD - 05/13/2019 3:04 PM EST Hospitalist Progress Note 05/13/2019 3:04 PM [phone]: Please page me @ [phone] for patient care issues. [phone]: Please page [facility] night Hospitalist for any issues. Subjective: Admit Date: 05/10/2019 PCP: No primary care provider on file. No overnight issues. Denies chest pain, sob, abdominal pain, nausea, vomiting, diarrhea, constipation, fevers, or chills. Diet NPO, After Midnight Patient Vitals for the past 96 hrs (Last 3 readings): Weight 05/13/19 0330 195 lb (88.5 kg) 05/12/19 0708 198 lb 6.4 oz (90 kg) 05/10/19 0906 200 lb (90.7 kg) Medications: sodium chloride nicotine 1 patch Transdermal Daily hydrALAZINE 50 mg Oral 3 times per day sodium chloride flush 10 mL Intravenous 2 times per day sodium chloride flush 10 mL Intravenous 2 times per day ticagrelor 90 mg Oral BID amLODIPine 10 mg Oral Daily pantoprazole 40 mg Oral QAM AC sertraline 50 mg Oral Daily sodium chloride flush 10 mL Intravenous 2 times per day atorvastatin 80 mg Oral Nightly aspirin 81 mg Oral Daily metoprolol tartrate 50 mg Oral BID LABS: CBC: Recent Labs 05/11/1941005/12/1940905/13/19337 WBC 9.2 12.4* 11.3* RBC 4.20* 4.07* 4.13* HGB 14.2 13.6 13.9 HCT 40.9 39.4* 39.9* MCV 97.3 96.8 96.5 RDW 15.2* 15.0* 15.0* PLT 240 242 242 BMP: Recent Labs 05/11/1941005/12/1940905/13/19337 NA 140 141 139 K 3.8 3.7 3.5 CL 110* 112* 112* CO2 25 24 21* BUN 24* 20 19 CREATININE 1.79* 1.66* 1.58* GLUCOSE 113* 122* 103* CALCIUM 8.8 8.6 8.7 ANIONGAP 6 5 6 LIVER PROFILE:No results for input(s): AST, ALT, BILITOT, ALKPHOS, LABALBU, PROT in the last 72 hours. PT/INR: No results for input(s): PROTIME, INR in the last 72 hours. CARDIAC ENZYMES: Recent Labs 05/10/19 1857 05/11/19410 TROPONINI 0.355* 0.206* Procalcitonin: No results found for: PROCAL Objective: Vitals: BP 124/73 Pulse 51 Temp 98.1 F (36.7 C) (Oral) Resp 14 Ht 5' 6 (1.676 m) Wt 195 lb (88.5 kg) SpO2 97% BMI 31.47 kg/m Pulse Ox: SpO2 Av.7 % Min: 96 % Max: 98 % Supplemental O2: O2 Flow Rate (L/min): 2 L/min General appearance: No apparent distress, appears stated age and cooperative with exam HEENT: Normal cephalic, atraumatic without obvious deformity. Pupils equal, round, and reactive to light. Extra ocular muscles intact. Conjunctivae/corneas clear. Neck: Supple, with full range of motion. No jugular venous distention. Trachea midline. No lymphadenopathy. Respiratory: Normal respiratory effort. Clear to auscultation, bilaterally without Rales/Wheezes/Rhonchi. Cardiovascular: Regular rate and rhythm with normal S1/S2 without murmurs, rubs or gallops. Abdomen: Soft, non-tender, non-distended with normal bowel sounds. No rebound or guarding. Musculoskeletal: No clubbing, cyanosis or edema bilaterally. Full range of motion without deformity. Skin: Skin color, texture, turgor normal. No rashes or lesions. Neurologic: Neurovascularly intact without any focal sensory/motor deficits. Cranial nerves: II-XIIintact, grossly non-focal. Assessment and Plan: # NSTEMI # Hypertensive heart disease # Chronic hypertension # Acute kidney injury on chronic kidney disease stage III due to hypertensive kidney disease, improved cr with IVF # Hyperlipidemia # Tobacco abuse # Class 1 obesity due to excessive calories patient had cath with a drug-eluting stent in left anterior descending, will have a repeat today for reassessing RCA and left anterior descending , on dual antiplatelet therapy, avoid nephrotoxins, received IVF monitor blood pressure (hydralazine increased) nicotine patch All test and lab results reviewed Consult notes reviewed Am labs, replace lytes prn PT/OT -DVT prophylaxis: [] Lovenox [] Heparin [] SCDs [x] Encourage ambulation [] Already on Anticoagulation Advance Directive: Full Code Discharge planning: TBD ALON FERNANDEZ MD, MD Division of Hospitalist Medicine Inpatient Medical Services * Naun Villaseñor MD - 05/13/2019 10:45 AM EST CARDIOLOGY PROGRESS NOTE Chart and interval events reviewed. Reason for Visit Follow-up SUBJECTIVE: Jacqueline Garner states feeling OK, but complaining of anxiety from being in the hospital. He denies shortness of breath or chest pain. He is to have repeat cath with staged intervention this afternoon. SCHEDULED MEDICATIONS: nicotine 1 patch Transdermal Daily hydrALAZINE 50 mg Oral 3 times per day sodium chloride flush 10 mL Intravenous 2 times per day sodium chloride flush 10 mL Intravenous 2 times per day ticagrelor 90 mg Oral BID amLODIPine 10 mg Oral Daily pantoprazole 40 mg Oral QAM AC sertraline 50 mg Oral Daily sodium chloride flush 10 mL Intravenous 2 times per day atorvastatin 80 mg Oral Nightly aspirin 81 mg Oral Daily metoprolol tartrate 50 mg Oral BID Active Problems: AISHWARYA (acute kidney injury) ([facility]) Poor hypertension control Hyperlipidemia Tobacco abuse NSTEMI (non-ST elevated myocardial infarction) ([facility]) Resolved Problems: * No resolved hospital problems. * Review of Systems: Review of Systems Constitutional: Negative for chills, diaphoresis and fever. Pt states feeling OK, but states he has had anxiety due to being in the hospital Respiratory: Negative for cough, shortness of breath and wheezing. Denies SOB Cardiovascular: Negative for chest pain, palpitations and leg swelling. Denies CP or palpitations Gastrointestinal: Negative for abdominal distention, abdominal pain, blood in stool, constipation, diarrhea, nausea and vomiting. Genitourinary: Negative for hematuria. Neurological: Negative for dizziness and syncope. VITAL SIGNS: Vitals: 05/13/19 0402 05/13/19 0601 05/13/19 0701 05/13/19 0801 BP: 125/85 (!) 142/85 130/89 (!) 150/79 Pulse: 51 54 51 51 Resp: Temp: 98.5 F (36.9 C) TempSrc: Oral SpO2: 97% 98% Weight: Height: Intake/Output Summary (Last 24 hours) at 05/13/2019 1046 Last data filed at 05/13/2019 0330 Gross per 24 hour Intake 1370 ml Output 2170 ml Net -800 ml Patient Vitals for the past 96 hrs (Last 3 readings): Weight 05/13/19 0330 195 lb (88.5 kg) 05/12/19 0708 198 lb 6.4 oz (90 kg) 05/10/19 0906 200 lb (90.7 kg) Physical Exam: Physical Exam Vitals reviewed: well compensated. Constitutional: General: He is not in acute distress. Appearance: Normal appearance. He is well-developed. He is not diaphoretic. HENT: Mouth/Throat: Pharynx: No oropharyngeal exudate. Eyes: General: No scleral icterus. Right eye: No discharge. Left eye: No discharge. Neck: Thyroid: No thyromegaly. Vascular: No JVD. Cardiovascular: Rate and Rhythm: Normal rate and regular rhythm. Chest Wall: PMI is not displaced. Pulses: Normal pulses. Heart sounds: Normal heart sounds. No murmur. No gallop. Comments: Right radial cath site is CDI with dressing, no hematoma or bruit present on exam Pulmonary: Effort: No accessory muscle usage or respiratory distress. Breath sounds: Normal breath sounds. Abdominal: General: Bowel sounds are normal. There is no distension or abdominal bruit. Palpations: Abdomen is soft. There is no shifting dullness or hepatomegaly. Tenderness: There is no tenderness. Musculoskeletal: Normal range of motion. Comments: No edema BLE Skin: General: Skin is warm and dry. Neurological: Mental Status: He is alert and oriented to person, place, and time. Data: Scheduled Meds: Reviewed Continuous Infusions: CBC: Recent Labs 05/12/19 0410 05/13/19 0338 WBC 12.4* 11.3* HGB 13.6 13.9 HCT 39.4* 39.9* PLT 242 242 BMP: Recent Labs 05/12/19 0410 05/13/19 0338 NA 141 139 K 3.7 3.5 CL 112* 112* CO2 24 21* BUN 20 19 CREATININE 1.66* 1.58* INR: No results for input(s): INR in the last 72 hours. No results for input(s): BNP in the last 72 hours. TSH: No results found for: TSH Cardiac Injury Profile: Recent Labs 05/10/19 1451 05/10/19 1857 05/11/19 0411 TROPONINI 0.309* 0.355* 0.206* Lipid Profile: Lab Results Component Value Date TRIG 168 05/12/2019 HDL 35 05/12/2019 CHOL 192 05/12/2019 EKG: See Report Telemetry Reviewed: SB- 58 Last Echo: 05/11/19- SUMMARY: 1. Left ventricle: Images were difficult. Systolic function is by visual assessment. The estimated ejection fraction is 45%. The inferior wall appears akinetic or hypokinetic as compared to other segments. Anterior wall appears to contract normally 2. Right ventricle: Systolic function is normal. 3. Left atrium: The atrium is mildly dilated. 4. Right atrium: The atrium is normal in size. 5. Mitral valve: Structurally normal valve. 6. Aortic valve: Structurally normal valve. Trileaflet. Cardiac Catheterization- 05/11/19 Procedures performed: # Percutaneous intervention on the 95% de jed stenosis in the mid LAD. Balloon angioplasty. Interventional IVUS examination. Stent placement. Balloon angioplasty. RECOMMENDATIONS: 1. Dual antiplatelet therapy uninterrupted for at least a year. 2. Aggressive medical management of CAD. 3. Aggressive CAD risk factor modification, including smoking cessation. 4. Staged intervention to RCA prior to discharge. 5. Cardiac rehabilitation. IMPRESSIONS/RECOMMENDATIONS: 1. NSTEMI - S/P GEORGINA to LAD yesterday - no complaints of chest pain - pt to have repeat heart catheterization this afternoon- severe progression of disease in RCA and LAD - aspirin and Brilinta continues - patient hydrated yesterday 0.9NS 125 ml/hr x 6 hours yesterday in preparation for his Cath today. 2. HTN - hydralazine 25 mg TID started yesterday, increased to 50 mg three times daily today - Lisinopril 40 mg daily discontinued due to renal insuffiencey - Amlodipine 10 mg daily and metoprolol tartrate 50 mg twice daily continue (unable to titrate BB due to bradycardia) 3. HLP - high intensity statin Lipitor 80 mg daily - will reassess lipid/hepatic panel 6 weeks out pt 4. Tobacco abuse - started on Nicotine patch yesterday - will encourage cessation - may also be influencing anxiety 5. AISHWARYA - creatinine mildly improved today compared to yesterday - continue to monitior after repeat heart catheterization Electronicallysigned by Kiara Morales APRN - OBSTETRICS TEACHER on 05/13/2019 at 10:46 AM I, Dr. Villaseñor, saw and evaluated the patient. I personally obtained the iraheta and critical portions ofthe history and physical exam. I reviewed the chart, the EMT I/85's documentation, and discussed the patient with the EMT I/85. I agree with the EMT I/85's medical decision making and have edited the note to reflect my clinical findings and my assessment and plan. He is not having any chest pain. He continues to be very anxious. I discussed the reasoning again for waiting to allow his kidneys to recuperate from Other cath before intervening on his right coronary artery. There are significant complex stenosis involving branch points require fair amount of contrast. He has been hydrated. I once again discussed the importance of smoking cessation. He also needs a primary care physician. * Alon Fernandez MD - 05/12/2019 2:06 PM EST Hospitalist Progress Note 05/12/2019 2:07 PM [phone]: Please page me @ [phone] for patient care issues. [phone]: Please page [facility] night Hospitalist for any issues. Subjective: Admit Date: 05/10/2019 PCP: No primary care provider on file. No overnight issues. Denies chest pain, sob, abdominal pain, nausea, vomiting, diarrhea, constipation, fevers, or chills. DIET CARDIAC; No Caffeine Patient Vitals for the past 96 hrs (Last 3 readings): Weight 05/12/19 0708 198 lb 6.4 oz (90 kg) 05/10/19 0906 200 lb (90.7 kg) Medications: sodium chloride hydrALAZINE 25 mg Oral 3 times per day nicotine 1 patch Transdermal Daily sodium chloride flush 10 mL Intravenous 2 times per day sodium chloride flush 10 mL Intravenous 2 times per day ticagrelor 90 mg Oral BID amLODIPine 10 mg Oral Daily lisinopril 40 mg Oral Daily pantoprazole 40 mg Oral QAM AC sertraline 50 mg Oral Daily sodium chloride flush 10 mL Intravenous 2 times per day atorvastatin 80 mg Oral Nightly aspirin 81 mg Oral Daily metoprolol tartrate 50 mg Oral BID LABS: CBC: Recent Labs 05/10/19 0848 05/11/1941005/12/19409 WBC 9.8 9.2 12.4* RBC 4.63 4.20* 4.07* HGB 15.8 14.2 13.6 HCT 45.2 40.9 39.4* MCV 97.6 97.3 96.8 RDW 15.1* 15.2* 15.0* PLT 270 240 242 BMP: Recent Labs 05/10/19 0848 05/11/19410 05/12/19 0410 NA 141 140 141 K 3.8 3.8 3.7 CL 111* 110* 112* CO2 27 25 24 BUN 21* 24* 20 CREATININE 1.87* 1.79* 1.66* GLUCOSE 122* 113* 122* CALCIUM 9.3 8.8 8.6 ANIONGAP 3 6 5 LIVER PROFILE:No results for input(s): AST, ALT, BILITOT, ALKPHOS, LABALBU, PROT in the last 72 hours. PT/INR: Recent Labs 05/10/19 0848 PROTIME 10.9 INR 1.1 CARDIAC ENZYMES: Recent Labs 05/10/19 1451 05/10/19 1857 05/11/19 0411 TROPONINI 0.309* 0.355* 0.206* Procalcitonin: No results found for: PROCAL Objective: Vitals: BP (!) 147/106 Pulse 52 Temp 98.1 F (36.7 C) (Oral) Resp 21 Ht 5' 6 (1.676 m) Wt198 lb 6.4 oz (90 kg) SpO2 94% BMI 32.02 kg/m Pulse Ox: SpO2 Av.2 % Min: 94 % Max: 98 % Supplemental O2: O2 Flow Rate (L/min): 2 L/min General appearance: No apparent distress, appears stated age and cooperative with exam HEENT: Normal cephalic, atraumatic without obvious deformity. Pupils equal, round, and reactive to light. Extra ocular muscles intact. Conjunctivae/corneas clear. Neck: Supple, with full range of motion. No jugular venous distention. Trachea midline. No lymphadenopathy. Respiratory: Normal respiratory effort. Clear to auscultation, bilaterally without Rales/Wheezes/Rhonchi. Cardiovascular: Regular rate and rhythm with normal S1/S2 without murmurs, rubs or gallops. Abdomen: Soft, non-tender, non-distended with normal bowel sounds. No rebound or guarding. Musculoskeletal: No clubbing, cyanosis or edema bilaterally. Full range of motion without deformity. Skin: Skin color, texture, turgor normal. No rashes or lesions. Neurologic: Neurovascularly intact without any focal sensory/motor deficits. Cranial nerves: II-XIIintact, grossly non-focal. Assessment and Plan: # NSTEMI # Hypertensive heart disease # Chronic hypertension # Acute kidney injury on chronic kidney disease stage III due to hypertensive kidney disease # Hyperlipidemia # Tobacco abuse # Class 1 obesity due to excessive calories patient had cath Yesterday with a drug-eluting stent in left anterior descending, will have a repeat Tomorrow for reassessing RCA and left anterior descending , on dual antiplatelet therapy, avoid nephrotoxins, monitor blood pressure, nicotine patch All test and lab results reviewed Consult notes reviewed Am labs, replace lytes prn PT/OT -DVT prophylaxis: [] Lovenox [] Heparin [] SCDs [x] Encourage ambulation [] Already on Anticoagulation Advance Directive: Full Code Discharge planning: TBD ALON FERNANDEZ MD, MD Division of Hospitalist Medicine Inpatient Medical Services * Zoila Ceron - 05/12/2019 9:00 AM EST Nutrition rescreen completed. Patient assigned a level 1. * Naun Villaseñor MD - 05/12/2019 8:50 AM EST CARDIOLOGY PROGRESS NOTE Chart and interval events reviewed. Reason for Visit Follow-up SUBJECTIVE: Jacqueline Garner states feeling OK, but complaining of a significant headache. He denies CP or SOB. SCHEDULED MEDICATIONS: sodium chloride flush 10 mL Intravenous 2 times per day sodium chloride flush 10 mL Intravenous 2 times per day ticagrelor 90 mg Oral BID amLODIPine 10 mg Oral Daily lisinopril 40 mg Oral Daily pantoprazole 40 mg Oral QAM AC sertraline 50 mg Oral Daily sodium chloride flush 10 mL Intravenous 2 times per day atorvastatin 80 mg Oral Nightly aspirin 81 mg Oral Daily metoprolol tartrate 50 mg Oral BID Active Problems: AISHWARYA (acute kidney injury) (HCC) Poor hypertension control Hyperlipidemia Tobacco abuse NSTEMI (non-ST elevated myocardial infarction) (HCC) Resolved Problems: * No resolved hospital problems. * Review of Systems: Review of Systems Constitutional: Negative for chills, diaphoresis and fever. Pt complaining of significant headache Respiratory: Negative for cough, shortness of breath and wheezing. Denies SOB Cardiovascular: Negative for chest pain, palpitations and leg swelling. Denies CP or palpitations Gastrointestinal: Negative for abdominal distention, abdominal pain, blood in stool, constipation, diarrhea, nausea and vomiting. Genitourinary: Negative for hematuria. Neurological: Negative for dizziness and syncope. VITAL SIGNS: Vitals: 05/12/19 0802 05/12/19 0811 05/12/19 0817 05/12/19 0821 BP: (!) 152/109 (!) 133/94 (!) 134/92 (!) 134/92 Pulse: 56 50 51 Resp: Temp: TempSrc: SpO2: Weight: Height: Intake/Output Summary (Last 24 hours) at 05/12/2019 0850 Last data filed at 05/12/2019 0708 Gross per 24 hour Intake 1865.47 ml Output 1950 ml Net -84.53 ml Patient Vitals for the past 96 hrs (Last 3 readings): Weight 05/12/19 0708 198 lb 6.4 oz (90 kg) 05/10/19 0906 200 lb (90.7 kg) Physical Exam: Physical Exam Vitals reviewed: well compensated. Constitutional: General: He is not in acute distress. Appearance: Normal appearance. He is well-developed. He is not diaphoretic. HENT: Mouth/Throat: Pharynx: No oropharyngeal exudate. Eyes: General: No scleral icterus. Right eye: No discharge. Left eye: No discharge. Neck: Thyroid: No thyromegaly. Vascular: No JVD. Cardiovascular: Rate and Rhythm: Normal rate and regular rhythm. Chest Wall: PMI is not displaced. Pulses: Normal pulses. Heart sounds: Normal heart sounds. No murmur. No gallop. Comments: Right radial cath site is CDI with dressing, no hematoma or bruit present on exam Pulmonary: Effort: No accessory muscle usage or respiratory distress. Breath sounds: Normal breath sounds. Abdominal: General: Bowel sounds are normal. There is no distension or abdominal bruit. Palpations: Abdomen is soft. There is no shifting dullness or hepatomegaly. Tenderness: There is no tenderness. Musculoskeletal: Normal range of motion. Comments: No edema BLE Skin: General: Skin is warm and dry. Neurological: Mental Status: He is alert and oriented to person, place, and time. Data: Scheduled Meds: Reviewed Continuous Infusions: sodium chloride sodium chloride 100 mL/hr at 05/12/19 0433 nitroGLYCERIN 40 mcg/min (05/12/19 0811) CBC: Recent Labs 05/11/19 0411 05/12/19 0410 WBC 9.2 12.4* HGB 14.2 13.6 HCT 40.9 39.4* PLT 240 242 BMP: Recent Labs 05/11/19 0411 05/12/19 0410 NA 140 141 K 3.8 3.7 CL 110* 112* CO2 25 24 BUN 24* 20 CREATININE 1.79* 1.66* INR: Recent Labs 05/10/19 0848 INR 1.1 No results for input(s): BNP in the last 72 hours. TSH: No results found for: TSH Cardiac Injury Profile: Recent Labs 05/10/19 1451 05/10/19 1857 05/11/19 041 TROPONINI 0.309* 0.355* 0.206* Lipid Profile: Lab Results Component Value Date TRIG 168 05/12/2019 HDL 35 05/12/2019 CHOL 192 05/12/2019 EKG: See Report Telemetry Reviewed: SB- 58 Last Echo: 05/11/19- SUMMARY: 1. Left ventricle: Images were difficult. Systolic function is by visual assessment. The estimated ejection fraction is 45%. The inferior wall appears akinetic or hypokinetic as compared to other segments. Anterior wall appears to contract normally 2. Right ventricle: Systolic function is normal. 3. Left atrium: The atrium is mildly dilated. 4. Right atrium: The atrium is normal in size. 5. Mitral valve: Structurally normal valve. 6. Aortic valve: Structurally normal valve. Trileaflet. Cardiac Catheterization- 05/11/19 -final report is pending- GEORGINA- LAD - patient is to have staged interventions later this week IMPRESSIONS/RECOMMENDATIONS: 1. NSTEMI - S/P GEORGINA to LAD yesterday - no complaints of chest pain - pt to have repeat heart catheterization tomorrow- severe progression of disease in RCA and LAD - Nitroglycerine drip discontinued- headache - aspirin and Brilinta continue 2. HTN - Nitro drip added yesterday to aid in treatment of hypertension- discontinued due to BLANCAS - hydralazine 25 mg TID started - Amlodipine 10 mg daily, lisinopril 40 mg daily and metoprolol tartrate 50 mg twice daily continue(unable to titrate BB due to bradycardia) 3. HLP - high intensity statin Lipitor 80 mg daily - will reassess lipid/hepatic panel 6 weeks out pt 4. Tobacco abuse - started on Nicotine patch - will encourage cessation 5. AISHWARYA - creatinine mildly improved today compared to yesterday - continue to monitior Electronicallysigned by Kiara Moraels APRN - OBSTETRICS TEACHER on 05/12/2019 at 8:50 AM I, Dr. Villaseñor, saw and evaluated the patient. I personally obtained the iraheta and critical portions ofthe history and physical exam. I reviewed the chart, the EMT I/85's documentation, and discussed the patient with the EMT I/85. I agree with the EMT I/85's medical decision making and have edited the note to reflect my clinical findings and my assessment and plan. Overall he is stable. His creatinine did improve slightly. However, his right coronary artery is highly complex and potentially need a fair amount of contrast. The concern over contrast-induced nephropathy is there so after discussion with Dr. Young, it was decided that we would wait another day and intervene on the right coronary artery likely tomorrow as long as he continues to improve. Continued risk factor modification with smoking cessation and high intensity statin amended. His anxiety has improved but it still is significant. Concern over nicotine withdrawal is there also. A nicotine patch has been ordered. * Darrin Canales RN - 05/11/2019 11:44 PM EST Pt complains of continuing anxiety and nausea at this time. Gave Benadryl IV, and encouraged pt to take Zofran, which he declined. Pt given basin per his request in case of emesis. * Darrin Canales RN - 05/11/2019 8:00 PM EST Last 2 doses of metoprolol have been held due to heart rate, yet we are titrating Nitroglycerin gttfor blood pressure. Called Dr. Jordan for hold parameters; will hold metoprolol only if heart rate less than 50. * Naun Villaseñor MD - 05/11/2019 11:56 AM EST [facility] Severe progression of disease in rca and LAD Discussed with Dr Gonzalez Will attempt PCI of RCA and LAD May need to stage if need a significant amount of contrast. * Naun Villaseñor MD - 05/11/2019 8:55 AM EST CARDIOLOGY PROGRESS NOTE Chart and interval events reviewed. Reason for Visit follow-up non-ST elevation microinfarction SUBJECTIVE: Jacqueline Garner states he is not having any further chest pain. He denies tightness. He denies shortness of breath. He denies any palpitations. He denies orthopnea or PND. SCHEDULED MEDICATIONS: lisinopril 40 mg Oral Daily pantoprazole 40 mg Oral QAM AC sertraline 50 mg Oral Daily sodium chloride flush 10 mL Intravenous 2 times per day amLODIPine 5 mg Oral Daily atorvastatin 80 mg Oral Nightly aspirin 81 mg Oral Daily metoprolol tartrate 50 mg Oral BID Active Problems: NSTEMI (non-ST elevated myocardial infarction) (HCC) Resolved Problems: * No resolved hospital problems. * Review of Systems: Review of Systems Constitutional: Positive for fatigue. Respiratory: Positive for shortness of breath. Negative for cough. Cardiovascular: Positive for chest pain. Negative for leg swelling. Neurological: Positive for weakness. Negative for dizziness, syncope and light-headedness. All other systems reviewed and are negative. VITAL SIGNS: Vitals: 05/11/19 0301 05/11/19 0402 05/11/19 0720 05/11/19 0802 BP: (!) 152/91 (!) 158/89 (!) 149/84 (!) 151/87 Pulse: (!) 41 (!) 49 (!) 48 (!) 42 Resp: 18 17 Temp: 98.1 F (36.7 C) 98.2 F (36.8 C) TempSrc: Oral Oral SpO2: 97% 98% Weight: Height: Intake/Output Summary (Last 24 hours) at 05/11/2019 0855 Last data filed at 05/11/2019 0414 Gross per 24 hour Intake 237.32 ml Output 675 ml Net -437.68 ml Patient Vitals for the past 96 hrs (Last 3 readings): Weight 05/10/19 0906 200 lb (90.7 kg) Physical Exam: Physical Exam Constitutional: Appearance: He is well-developed. HENT: Head: Normocephalic and atraumatic. Eyes: General: No scleral icterus. Conjunctiva/sclera: Conjunctivae normal. Pupils: Pupils are equal, round, and reactive to light. Neck: Musculoskeletal: Normal range of motion. Thyroid: No thyromegaly. Vascular: No JVD. Trachea: No tracheal deviation. Cardiovascular: Rate and Rhythm: Normal rate and regular rhythm. Chest Wall: PMI is not displaced. Heart sounds: Normal heart sounds. No murmur. No friction rub. No gallop. Pulmonary: Effort: Pulmonary effort is normal. No respiratory distress. Breath sounds: No wheezing or rales. Chest: Chest wall: No tenderness. Abdominal: General: Bowel sounds are normal. There is no distension. Palpations: Abdomen is soft. There is no mass. Tenderness: There is no tenderness. There is no rebound. Musculoskeletal: Normal range of motion. General: No tenderness. Skin: General: Skin is warm and dry. Neurological: Mental Status: He is alert and oriented to person, place, and time. Cranial Nerves: No cranial nerve deficit. Psychiatric: Behavior: Behavior normal. Data: Scheduled Meds: Reviewed Continuous Infusions: sodium chloride heparin (porcine) 14.223 Units/kg/hr (05/10/19 1552) CBC: Recent Labs 05/10/19 0848 05/11/19410 WBC 9.8 9.2 HGB 15.8 14.2 HCT 45.2 40.9 PLT 270 240 BMP: Recent Labs 05/10/19 0848 05/11/19410 NA 141 140 K 3.8 3.8 CL 111* 110* CO2 27 25 BUN 21* 24* CREATININE 1.87* 1.79* INR: Recent Labs 05/10/19 0848 INR 1.1 No results for input(s): BNP in the last 72 hours. TSH: No results found for: TSH Cardiac Injury Profile: Recent Labs 05/10/19 1451 05/10/19 1857 05/11/19410 TROPONINI 0.309* 0.355* 0.206* Lipid Profile: Lab Results Component Value Date TRIG 137 07/26/2016 HDL 33 07/26/2016 CHOL 184 07/26/2016 EKG: See Report Telemetry Reviewed: Sinus rhythm Echo: See Report IMPRESSIONS/RECOMMENDATIONS: 1. Acute coronary syndrome with non-ST elevation myocardial infarction: He is currently pain-free. He is on a heparin drip. We will arrange for diagnostic angiography. The risks and benefits described in detail to him. He understands and is willing to proceed. 2. Hypertension: Controlled. 3. Hyperlipidemia: On therapy. 4. Chronic tobacco abuse: The importance of tobacco cessation was stressed in detail with the patient. 5. Acute on Chronic kidney disease: His creatinine is up from baseline. I suspect this is likely his new baseline. We will have to be careful with IV contrast. Greater than 35 minutes of critical care time was spent with the patient, reviewing the chart and discussing staff. Electronicallysigned by Naun Villaseñor MD on 05/11/2019 at 8:55 AM * Miah Ji MD - 05/11/2019 8:30 AM EST Hospitalist Progress Note 05/11/2019 8:30 AM [phone]: Please page mo [phone] for patient care issues. [phone]: Please page [facility] Hospitalist for any issues. Subjective: Admit Date: 05/10/2019 PCP: No primary care provider on file. Interval History: No chest pain this morning. Anxious. Plan for [facility] today. Denies chest pain, sob, abdominal pain, nausea, vomiting, diarrhea, constipation, fevers, or chills. Diet NPO, After Midnight Patient Vitals for the past 96 hrs (Last 3 readings): Weight 05/10/19 0906 200 lb (90.7 kg) In: 237.3 [I.V.:237.3] Out: 675 [Urine:675] Medications: heparin (porcine) 14.223 Units/kg/hr (05/10/19 1552) lisinopril 40 mg Oral Daily pantoprazole 40 mg Oral QAM AC sertraline 50 mg Oral Daily sodium chloride flush 10 mL Intravenous 2 times per day amLODIPine 5 mg Oral Daily atorvastatin 80 mg Oral Nightly aspirin 81 mg Oral Daily metoprolol tartrate 50 mg Oral BID LABS: CBC: Recent Labs 05/10/19 0848 05/11/19 0411 WBC 9.8 9.2 RBC 4.63 4.20* HGB 15.8 14.2 HCT 45.2 40.9 MCV 97.6 97.3 RDW 15.1* 15.2* PLT 270 240 BMP: Recent Labs 05/10/19 0848 05/11/19 0411 NA 141 140 K 3.8 3.8 CL 111* 110* CO2 27 25 BUN 21* 24* CREATININE 1.87* 1.79* GLUCOSE 122* 113* CALCIUM 9.3 8.8 ANIONGAP 3 6 LIVER PROFILE:No results for input(s): AST, ALT, BILITOT, ALKPHOS, LABALBU, PROT in the last 72 hours. PT/INR: Recent Labs 05/10/19 0848 PROTIME 10.9 INR 1.1 CARDIAC ENZYMES: Recent Labs 05/10/19 1451 05/10/19 1857 05/11/191 TROPONINI 0.309* 0.355* 0.206* Procalcitonin: No results found for: PROCAL Glucose: No results for input(s): POCGLU in the last 72 hours. Objective: Vitals: BP (!) 151/87 Pulse (!) 42 Temp 98.1 F (36.7 C) (Oral) Resp 18 Ht 5' 6 (1.676 m) Wt 200 lb (90.7 kg) SpO2 97% BMI 32.28 kg/m Pulse Ox: SpO2 Av.8 % Min: 94 % Max: 98 % Supplemental O2: General appearance: No apparent distress, appears stated age and cooperative with exam HEENT: Normal cephalic, atraumatic without obvious deformity. Pupils equal, round, and reactive to light. Extra ocular muscles intact. Conjunctivae/corneas clear. Neck: Supple, with full range of motion. No jugular venous distention. Trachea midline. No lymphadenopathy. Respiratory: Normal respiratory effort. Clear to auscultation, bilaterally without Rales/Wheezes/Rhonchi. Cardiovascular: Regular rate and rhythm with normal S1/S2 without murmurs, rubs or gallops. Abdomen: Soft, non-tender, non-distended with normal bowel sounds. No rebound or guarding. Musculoskeletal: No clubbing, cyanosis or edema bilaterally. Full range of motion without deformity. Skin: Skin color, texture, turgor normal. No rashes or lesions. Neurologic: Neurovascularly intact without any focal sensory/motor deficits. Cranial nerves: II-XIIintact, grossly non-focal. Assessment 1. NSTEMI - EKG with concerns for possible LAD lesion (Wellins criteria); [facility] today 2. Hx of CAD (PCI last to RCA in 2012) - Off Plavix; Restarted ASA 3. HTN/HLD - Became bradycardic from Beta surya; Held for procedure today; Continue rest of home meds 4. GERD - PPI 5. Depression - Zoloft Diagnosis Date CAD (coronary artery disease) Chest pain Hyperlipidemia Hypertension Nicotine dependence NSTEMI (non-ST elevated myocardial infarction) (HCC) Syncope and collapse and collapse Tobacco abuse Plan - [facility] -am labs, replace lytes prn -increase activity -DVT prophylaxis: [] Lovenox [x] Heparin [] SCDs [x] Encourage ambulation [] Already on Anticoagulation Advance Directive: Full Code Discharge plannin-48 hours Miah Ji MD Division of Hospitalist Medicine Inpatient Medical Services PAGER: [phone] * Lanette Brewer RN - 05/10/2019 10:28 PM EST PTT 35.6. Per protocol half rebolus of 2,720 units of heparin and verified with Ming Ho RN. Increase heparin drip from 1290 units/hr to 16.2 units/kg/hr or 1470 units/hr. Will recheck ptt at 0430. * Lanette Brewer RN - 05/10/2019 9:14 PM EST Held 9 pm dose of metoprolol due to heart rate in the low 50's. Dr. Fernandez notified. * Karl Sanabria MD - 05/10/2019 11:37 AM EST See dictation. This is an acute coronary syndrome, probably the LAD and probably a NSTEMI. He is pain free now and appropriate for the HICU. 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 Advance Directives and Living Will Power of Pumping Plant Operator Latest Code Status on File Code Status Date Activated Date Inactivated Comments Full Code 05/13/2019 4:11 PM Full Code 05/11/2019 1:16 PM 05/13/2019 4:11 PM Full Code 05/11/2019 9:23 AM 05/11/2019 1:16 PM Full Code 05/10/2019 1:36 PM 05/11/2019 9:23 AM Documents on File Type Date Recorded 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 Advance Directives and Living Will Power of Pumping Plant Operator Latest Code Status on File Code Status Date Activated Date Inactivated Comments Full Code 05/13/2019 4:11 PM 05/14/2019 3:13 PM Full Code 05/11/2019 1:16 PM 05/13/2019 4:11 PM Full Code 05/11/2019 9:23 AM 05/11/2019 1:16 PM Full Code 05/10/2019 1:36 PM 05/11/2019 9:23 AM Documents on File Type Date Recorded 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 ACP-Advance Directive ACP-Power of Pumping Plant Operator Documents on File Type Date Recorded 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 Advance Directives and Living Will refused at this time , 06/17/19 Power of Pumping Plant Operator refused at this time, 06/17/19 Summary Purpose Family History No Family History Records FoundNo Family History Records FoundNo Family History Records Found Additional Source Comments Reason for Visit (unrecogniz ed section and content) Reason Comments Appointment referral (unrecognized sect ion and content) No Status Records FoundNo Status Records FoundNo Status Records Found INFORMATION SOURCE (unrecogn ized section and content) DATE CREATED AUTHOR AUTHOR'S ORGANIZ ATION 05/04/2022 [facility] DATE CREATED AUTHOR AUTHOR'S ORGANIZ ATION 10/03/2022 [facility] ([place]) Source Comments (unrecognize d section and content) In the event this informatio n is protected by the Federal Confidentiality of Alcohol and Drug Abuse Patient Records regulations: The Federal rules restrict any use of the information to criminally investigate or prosecute any alcohol or drug abuse patient.[facility] Care Team (unrecognized sect ion and content) Personnel Name: AMI EISENBERG DO Address: [address] [place] [address] Care Team Personnel Name: AMI EISENBERG DO Position: P4 Physician - Primary Care Member Role: Primary Care Physician Address: Address: [address] [place] [address] Name: ASYA SPARKS MD Position: P4 Physician - Cardiology Member Role: Warehouse Traffic Supervisor Address: Address: [address] [place] [address] Care Team Related Persons Name: CLAUDIA DUBOSE Name: FLORIDA WHALEN Care Team (unrecognized sect ion and content) Personnel Name: AMI EISENBERG DO Address: Address: [address] [place] [address] Care Team Personnel Name: AMI EISENBERG DO Position: P4 Physician - Primary Care Member Role: Primary Care Physician Address: Address: [address] [place] [address] Name: ASYA SPARKS MD Position: P4 Physician - Cardiology Address: Address: [address] [place] [address] Care Team Related Persons Name: CLAUDIA DUBOSE Name: [place]OR[place] WHALEN Care Team Personnel Name: AMI EISENBERG DO Position: P4 Physician - Primary Care Med Service: Active Provider Member Role: Primary Care Physician Address: Address: [address] [place] [address] Name: ASYA SPARKS MD Position: P4 Physician - Cardiology Med Service: Employed Provider Member Role: Warehouse Traffic Supervisor Address: Address: [address] [place] [address] Care Team Related Persons Name: CLAUDIA DUBOSE Name: FLOR[place] WHALEN Care Team Personnel Name: AMI EISENBERG DO Position: P4 Physician - Primary Care Med Service: Active Provider Member Role: Primary Care Physician Address: Address: [address] [place] [address] Name: ASYA SPARKS MD Position: P4 Physician - Cardiology Med Service: Employed Provider Member Role: Warehouse Traffic Supervisor Address: Address: [address] [place] [address] Care Team Related Persons Name: CLAUDIA DUBOSE Name: FLOR[place] WHALEN FOR RECORDS PERTAINING TO PATIENTS WHO ARE OR HAVE BEEN ENROLLED IN A CHEMICAL DEPENDENCY/SUBSTANCEABUSE PROGRAM, SOME INFORMATION MAY BE OMITTED. This clinical summary was aggregated from multiple sources. Caution should be exercised in using it in the provision of clinical care. This summary normalizes information from multiple sources, and as a consequence, information in this document may materially change the coding, format and clinical context of patient data. In addition, data may be omitted in some cases. CLINICAL DECISIONS SHOULD BE BASED ON THE PRIMARY CLINICAL RECORDS. [employer] provides no warranty or guarantee of the accuracy or completeness of information in this document.
== END | disposition home or self-care (01) ==
LOC: POLAB3 14:52
PROVIDERS: PCP Family Medicine Geriatric Medicine; Visit Provider Family Medicine Geriatric Medicine
DX: R53.83 Other fatigue (principal)
CPT/HCPCS: 36415; 84443

== ENCOUNTER → 2023-09-05 | Outpatient (CLI) | payer MEDICAID, SELFPAY ==
[2023-09-05 17:15] LABS: Absolute Lymphocyte Count 1.51 X10^3/uL (0.83-4.51); Absolute Neutrophil Count 4.1 X10^3/uL (2.0-7.7); Basophil# 0.08 X10^3/uL; Basophil% 1.2 % (0-1); Eosinophil# 0.08 X10^3/uL; Eosinophils% 1.2 % (0-5); Hematocrit 46.1 % (40-54); Hemoglobin 15.4 g/dL (13.0-16.5); Lymphocyte # 1.51 X10^3/ul (0.83-4.51); Lymphocyte % 23.2 % (19-41); Mean Corp Hgb Conc 33.4 g/dL (32-36); Mean Corpuscular Hgb 32.2 pg (27.0-32.0); Mean Corpuscular Volume 96.4 fL (80-94); Mean Platelet Vol. 11.1 fl (6.2-12.0); Monocyte# 0.73 X10^3/uL; Monocyte% 11.2 % (0-10); NRBC Flagged by Analyzer 0 % (0-5); Neutrophil % 62.9 % (47-70); Platelet Count 298 K/mm3 (150-450); RBC Distribution Width CV 14.2 % (11.6-14.6); RBC Distribution Width SD 50.5 fl (35.1-43.9); Red Blood Count 4.78 M/mm3 (4.6-6.2); White Blood Count 6.5 K/mm3 (4.4-11.0)
[2023-09-05 17:34] LABS: ALB/GLOB Ratio 0.9 RATIO (0.9-2.4); AST(SGOT) 20 U/L (15-37); Alanine Aminotransfer ALT/SGPT 36 U/L (16-61); Albumin, Serum 3.7 g/dL (3.2-5.0); Alkaline Phosphatase 90 U/L (45-117); Anion Gap 8 (5-15); BUN 25 mg/dL (7-18); BUN/Creat Ratio 13.2 RATIO (10-20); Calcium,Total 9.5 mg/dL (8.5-10.1); Chloride 103 mmol/L (98-107); Cholesterol 182 mg/dL (200); EST Glomerular Filtration Rate 38 mL/min (>60); Est Glom Filt Rate - Afr Amer 46 mL/min (>60); Globulin 4.2 g/dL (2.2-4.2); Glucose 129 mg/dL (74-106); High Density Lipoprotein 38 mg/dL; Potassium 3.8 mmol/L (3.5-5.1); Protein, Total 7.9 g/dL (6.4-8.2); Sodium Level 138 mmol/L (136-145); Thyroid Stim Hormone (TSH) 5.55 uIU/mL (0.358-3.74); Triglycerides 256 mg/dL; Very Low Density Lipoprotein 51 mg/dL (5-40)
--- OUTSIDE RECORDS SUMMARY | 2023-09-05 19:52 | XMS RPT_ITS | CCD ---
Author Name Unknown Address [address] [place] [address] Organization [facility] Care Team Providers Care Wheel And Caster Repairer Name Role Phone Unavailable Primary Care Provider Lamberto Levy Primary Care Provider ELGIN SALMERON, DR MUELLER Primary Care Physician [phone] Unavailable Primary Care Provider Lamberto Levy MD Primary Care Provider [phone] ELGIN SALMERON, DR MUELLER Attending Unavailable ROMAR DO, DR MUELLER Primary Care Unavailable ROMAR DO, DR MUELLER Attending Unavailable ROMAR DO, DR MUELLER Primary Care Unavailable EFRAINAR , DR MUELLER Attending Unavailable ELGIN DO, DR MUELLER Primary Care Unavailable ROMAR [...] DISPENSE, # 1 EA, 2 Refill(s), [facility]: [facility], 179, cm, 06/09/21 14:03:00 EST, Height, kg, [...] chew, # 90 tab(s), 1 Refill(s), Pharmacy: [facility] , 178, cm, 12/21/21 14:24:00 EDT, Height Start Date: 12/21/21 Stop Date: 06/19/22 Status: Ordered Problems Active Problems Problem Classification Problem Date Documented Da te Episodic/Chronic Acute and unspecified renal failure (4 sources) Chronic renal failure 03-26-2021 Chronic Acute and unspecified renal failure (4 sources) Acute injury of kidney; Translations: [AISHWARYA (acute kidney injury) ([facility])] 05-11-2019 Acute myocardial infarction (5 sources) Myocardial infarction; Translations: [NSTEMI (non-ST elevated myocardial infarction) ([facility])] 05-10-2019 Chronic Anxiety disorders (8 sources) Mixed [...] la 05-14-2019 07:47-0500 Body Temperature 98.6 [degF] [place], [place] 05-14-2019 07:47-0500 BP Diastolic 69 mm[Hg] [place], [place] 05-14-2019 07:47-0500 BP Systolic 135 mm[Hg] [place] 05-14-2019 07:47-0500 Pulse (Heart Rate) 56 /min [place], [place] 05-14-2019 07:47-0500 Pulse Oximetry 95 % [place] 05-14-2019 07:47-0500 Respiratory Rate 8 /min [place] 05-14-2019 06:12-0500 BMI (Body Mass Index) 31.64 kg/m2 [place], [place] 05-14-2019 06:12-0500 Body weight 88.91 kg [place] 05-10-2019 09:06-0500 Height 167.6 cm [place] Encounters Encounter Date Encounter Type Care Provider Facility Start: 09-28-2022 End: 09-29-[address] AMI EISENBERG DO Facility:B Start: 09-28-2022 End: 09-28-[address] AMI EISENBERG DO [facility] Start: 03-07-2022 End: 03-08-[address] AMI EISENBREG DO Facility:B Start: 03-07-2022 End: 03-07-[address] AMI EISENBERG DO [facility] Start: 02-19-2022 End: 02-20-[address] AMI EISENBERG DO Facility:B Start: 02-19-2022 End: 02-19-[address] AMI EISENBERG DO [facility] Start: 12-21-2021 End: 12-22-[address] AMI EISENBERG DO Facility:B Start: 12-21-2021 End: 12-21-[address] AMI EISENBERG DO [facility] Start: 11-03-[address] AMI EISENBERG DO Facili ty:B Start: 10-02-2021 End: 10-02-[address] AMI EISENBERG DO [facility] Start: 08-18-2021 Telephone encounter Shawna jimenez MD Work Phone: [facility] [place] [facility] Procedures Date Procedure Procedure Detail Performing Clinician Start: 04-10-[address] ZEINA SPARKS MD Plan of Treatment Date Care Activity Detail Author Start: 04-11-2021 Influenza vaccination Flu vaccine (# 1) [place], [place] Immunizations Immunization Date Immunization Notes Care Provider Moira lomax 05-03-2015 influenza virus vaccine, unspecified formulation DR AMI EISENBERG DO [facility] 02-02-2011 tetanus toxoid, redu ankit diphtheria toxoid, and acellular pertussis vaccine, adsorbed Mariza Richardson [place], [place] Payers Date Payer Category Payer Unknown [id number] 2021 Medicaid [place] [employer] [employer] [id number] 2021-Present [phone] [place] [address] Medicaid [id number] 1960 Unknown [id number] 1960 Unknown [id number] 1960 Unknown [id number] 1960 Unknown [id number] 1960 Unknown [id number] Social History Date Type Detail Facility Start: 06-17-1980 End: 07-23-2019 Tobacco smoking status NHIS Current every day smoker [place] Start: 05-11-2019 End: 07-23-2019 Alcohol intake Current non-drinker of alcohol (finding) [place], [place] Start: 1960 Sex Assigned At Not on file M [place], [place] Start: 06-17-1980 History of tobacco use Cigarette Smo ker [facility] Work Phone: Start: 07-23-2019 End: 02-03-2020 Cigarettes smoked current (pack per day) - Reported [facility] Work Phone: Start: 02-03-2020 End: 04-11-2020 Tobacco use and exposure Never used [place], [place] Start: 07-23-2019 History 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 5 [facility] Work Phone: Start: 07-23-2019 History SDOH Food Worry 1 [facility] Work Phone: Start: 07-23-2019 History SDOH Transpo rt Med 2 [facility] Work Phone: Start: 03-27-2021 End: 04-19-2021 Ex-smoker (finding) [facility] Sex Assigned At Male [facility] Start: 07-18-2021 End: 08-17-2021 Exposure to SARS-CoV-2 (event) Not sure [facility] Clinical Notes 09-11-2021 to 10-02-2021 LaboratoryRadiologyTelephone Encounter [...] Lateral) 09/12/21XR Spine Lumbar 1 View 07/03/21 [facility] 09-11-2021 Miscellaneous Notes Ending letter Arianne Urbina September 11, 2021 4:43 PM 3rd attempt unable to leave message. Thank you Tamera Scruggs August 22, 2021 9:27 AM 2nd attempt to contact patient Unable to leave VM, phone rings without answer August 21, 2021 10:26 AM Anabella Castano PSS Lm to call to schedule ov for Hasimoto thyroiditis by [facility] in [facility] Arianne Urbina August 18, 2021 9:34 AM documented in this encounter [facility] Evaluation + Plan note Future Appointments Appointment Date:06/09/2021 02:00:00 PM Scheduled Provider:AMI EISENBERG DO Location:[facility] Appointment Type:PC OV Appointment Date:06/12/2021 02:20:00 PM Scheduled Provider:LISETTE RAY Location:[facility] Appointment Type:[facility] CURRICULUM DEVELOPMENT SPECIALIST Appointment Date:06/27/2021 02:30:00 PM Scheduled Provider:AMI EISENBERG [...] Panel 09/05/21XR Spine Lumbar 1 View 07/03/21 [facility] Evaluation + Plan note Future Appointments [...] Contrast 06/09/21XR Spine Lumbar 1 View 07/03/21 [facility] Evaluation + Plan note Future Appointments Appointment Date:01/03/2022 11:30:00 AM Scheduled Provider: Location:[facility] Appointment Type:CV OV Appointment Date:02/22/2022 02:30:00 PM Scheduled Provider:AMI EISENBERG DO Location:[facility] Appointment Type:PC OV Future Scheduled TestsBasic [...] Lateral) 09/12/21XR Spine Lumbar 1 View 07/03/21 [facility] Evaluation + Plan note Future Appointments Appointment Date:04/12/2021 02:00:00 PM Scheduled Provider:AMI EISENBERG DO Location:[facility] Appointment Type:PC CURRICULUM DEVELOPMENT SPECIALIST Appointment Date:04/17/2021 10:15:00 AM Scheduled Provider:NICHOLE KHAN MD Location:[facility] Appointment Type:NS OV Future Scheduled TestsBasic Metabolic Panel 04/03/21Basic Metabolic Panel 05/01/21Basic Metabolic Panel 05/29/21Basic Metabolic Panel 06/26/21N-Terminal proBNP 04/03/21N-Terminal proBNP 05/01/21N-Terminal proBNP 05/29/21N-Terminal proBNP 06/26/21XR Spine Lumbar 1 View 03/29/21 [facility] Evaluation + Plan note Future Appointments Appointment Date:02/22/2022 02:30:00 PM Scheduled Provider:AMI EISENBERG DO Location:[facility] Appointment Type:PC OV Future Scheduled TestsBasic Metabolic [...] Lateral) 09/12/21XR Spine Lumbar 1 View 07/03/21 [facility] Evaluation + Plan note Future Appointments Appointment Date:05/30/2022 02:30:00 PM Scheduled Provider:AMI EISENBERG DO Location:[facility] Appointment Type:PC Wellness Annual Future Scheduled TestsBasic Metabolic Panel 11/08/21Basic Metabolic Panel 12/06/21Basic Metabolic Panel 01/03/22Basic Metabolic Panel 01/31/22Basic Metabolic Panel 11/09/21Basic Metabolic Panel 05/09/21Thyroid Stimulating Hormone 09/05/21Complete Blood Count 09/05/21Lipid Profile 09/05/21Complete Metabolic Panel 09/05/21N-Terminal proBNP 09/05/21N-Terminal proBNP 11/08/21N-Terminal proBNP 12/06/N-Terminal proBNP 01/03/22N-Terminal proBNP 01/31/22CT Thorax w/o Contrast 06/09/21XR Chest 2 Views (PA & Lateral) 09/12/21XR Spine Lumbar 1 View 07/03/21 [facility] Evaluation + Plan note Future Appointments Appointment Date:12/14/2022 02:30:00 PM Scheduled Provider:AMI EISENBERG DO Location:[facility] Appointment Type:PC OV Future Scheduled TestsBasic Metabolic Panel 11/08/21Basic Metabolic Panel 12/06/21Basic Metabolic Panel 01/03/22Basic Metabolic Panel 01/31/22Basic Metabolic Panel 11/09/21Prostate Specific Antigen 09/21/N-Terminal proBNP 11/08/21N-Terminal proBNP 12/06/22N-Terminal proBNP 01/03/N-Terminal proBNP 01/31/22 [facility] Hospital course Narrative No data available for this section [facility] Hospital Discharge instructions No data available for this section [facility] Progress note No data available for this section [facility] Reason for Referral Status Reason Specialty Diagnoses / Procedures Referred By Contact Referred To Contact [facility] Required Cardiac Rehabilitation Diagnoses NSTEMI (non-ST elevated myocardial infarction) (HCC) Chidi Reyes APRN - FIELD SERVICE REPRESENTATIVE [address] [place] [address] [facility] [address] [place] [address] Scheduling Instructions [facility] [address] [place] [address] Discharge Instructions * Discharge Instr - Lab* Justina Martin, RN - 05/11/2019 9:54 AM EST [facility] [phone] offer services including medical, dental, [facility], behavioral health and a reduced-rate pharmacy. Fees are based on current income and family size. * Additional Instructions* Rosario Melgar RN - 05/12/2019 [facility] NURSING DISCHARGE QUICK REFERENCE TOOL Discharge Date: [...] Where can you learn more? Go to [email or web address] and sign in to your [employer] account. Enter O319 in the Search Health Information box to learn more about Learning About Benefits From Quitting Smoking. If you do not have an account, please click on the Sign Up Now link. Current as of: March 26, 2018 Content Version: .[id number] [employer]. Care instructions adapted under license by [employer]. If youhave questions about a medical condition or this instruction, always ask your healthcare professional. [employer] disclaims any warranty or liability for your use of this information. Activity and Exercise: Walk every day. Start with 5 minutes a day. Slowly increase to a goal (ie. 10-30 minutes a day). Remember to rest when tired. If interested, register for Cardiac Rehab Orientation every Saturday at 11:30am. Scheduled: Location: [address] [place] [address], [address] [address] Follow Up Appointments: Please bring Photo ID, Insurance Cards, and a Current List of Medications to your appointments. Perlite Grinder: Dr. Mark Anthony Villaseñor MD at [address] [place] [address] [address] [place] [address] phone [phone] Appointment: 05/21/19 @ 1:30pm Primary Care: No primary care provider on file. Appointment: Need to make new patient appointment with Ot[facility] Address: Smoking Cessation: You may register for Smoking Cessation Classes Location: [facility] Address:[address] [place] [address], Conference room on 2nd floor. Phone: 24 HR Post Discharge Call: Date and time range: 05/15/19 between 9am-9pm IF YOU HAVE ANY QUESTIONS, CALL THE UNIT (HICU) AT [phone] Cardiac Rehab The Cardiac Rehabilitation Team at [facility] consists of highly skilled healthcare professionals, including [...] regarding this valuable service please call # [phone] Orientation is available on all Wednesdays at 1130 am location in the [address] Care of the catheter [...] a [facility] Employee at one of the [facility] that we are partnered with. We are committed to your healthand well-being. We will schedule you for the Orientation if you would like to hear more. Orientation is Wednesdays at 11:30 am located at the [address], [address], [place] [address]. (Below is an image of our Cardiac [...] Tobacco abuse NSTEMI (non-ST elevated myocardial infarction) ([facility]) Resolved Problems: * No resolved hospital problems. [...] f/u appointment arranged with myself at the [facility] office 05/21/19 at 1:30 pm. Electronicallysigned by Kiara Morales APRN - FIELD SERVICE REPRESENTATIVE on 05/14/2019 at 7:55 AM I, Dr. Villaseñor, saw and evaluated the patient. I personally obtained the iraheta and critical portions ofthe history and physical exam. I reviewed the chart, the PROJECTION CAMERA OPERATOR's documentation, and discussed the patient with the PROJECTION CAMERA OPERATOR. I agree with the PROJECTION CAMERA OPERATOR's medical decision making and have edited the [...] EST Hospitalist Progress Note 05/13/2019 3:04 PM [phone]: Please page me @ [phone] for patient care issues. [phone]: Please page [facility] night Hospitalist for any issues. Subjective: Admit [...] BID Active Problems: AISHWARYA (acute kidney injury) ([facility]) Poor hypertension control Hyperlipidemia Tobacco abuse NSTEMI (non-ST elevated myocardial infarction) ([facility]) Resolved Problems: * No resolved hospital problems. [...] catheterization Electronicallysigned by Kiara Morales APRN - FIELD SERVICE REPRESENTATIVE on 05/13/2019 at 10:46 AM I, Dr. Villaseñor, saw and evaluated the patient. I personally obtained the iraheta and critical portions ofthe history and physical exam. I reviewed the chart, the PROJECTION CAMERA OPERATOR's documentation, and discussed the patient with the PROJECTION CAMERA OPERATOR. I agree with the PROJECTION CAMERA OPERATOR's medical decision making and have edited the [...] EST Hospitalist Progress Note 05/12/2019 2:07 PM [phone]: Please page me @ [phone] for patient care issues. [phone]: Please page [facility] night Hospitalist for any issues. Subjective: Admit [...] - continue to monitior Electronicallysigned by Kiara Morales APRN - FIELD SERVICE REPRESENTATIVE on 05/12/2019 at 8:50 AM I, Dr. Villaseñor, saw and evaluated the patient. I personally obtained the iraheta and critical portions ofthe history and physical exam. I reviewed the chart, the PROJECTION CAMERA OPERATOR's documentation, and discussed the patient with the PROJECTION CAMERA OPERATOR. I agree with the PROJECTION CAMERA OPERATOR's medical decision making and have edited the [...] Villaseñor MD - 05/11/2019 11:56 AM EST [facility] Severe progression of disease in rca [...] EST Hospitalist Progress Note 05/11/2019 8:30 AM [phone]: Please page nd [phone] for patient care issues. [phone]: Please page [facility] Hospitalist for any issues. Subjective: Admit Date: 05/10/2019 PCP: No primary care provider on file. Interval History: No chest pain this morning. Anxious. Plan for [facility] today. Denies chest pain, sob, abdominal [...] concerns for possible LAD lesion (Wellins criteria); [facility] today 2. Hx of CAD (PCI [...] collapse and collapse Tobacco abuse Plan - [facility] -am labs, replace lytes prn -increase activity -DVT prophylaxis: [] Lovenox [x] Heparin [] SCDs [x] Encourage ambulation [] Already on Anticoagulation Advance Directive: Full Code Discharge plannin-48 hours Miah Ji MD Division of Hospitalist Medicine Inpatient Medical Services PAGER: [phone] * Lanette Brewer RN - 05/10/2019 10:28 [...] FoundDocuments on File Type Date Recorded Patient Web Producer Expl anation Advance Directives and Living Will Power of Showroom Manager Latest Code Status on File Code Status Date Activated Date Inactivated Comments Full Code 05/13/2019 4:11 PM Full Code 05/11/2019 1:16 PM 05/13/2019 4:11 PM Full Code 05/11/2019 9:23 AM 05/11/2019 1:16 PM Full Code 05/10/2019 1:36 PM 05/11/2019 9:23 AM Documents on File Type Date Recorded Patient Web Producer Expl anation Advance Directives and Living Will Power of Showroom Manager Latest Code Status on File Code Status Date Activated Date Inactivated Comments Full Code 05/13/2019 4:11 PM 05/14/2019 3:13 PM Full Code 05/11/2019 1:16 PM 05/13/2019 4:11 PM Full Code 05/11/2019 9:23 AM 05/11/2019 1:16 PM Full Code 05/10/2019 1:36 PM 05/11/2019 9:23 AM Documents on File Type Date Recorded Patient Web Producer Expl anation ACP-Advance Directive ACP-Power of Showroom Manager Documents on File Type Date Recorded Patient Web Producer Expl anation Advance Directives and Living Will refused at this time , 06/17/19 Power of Showroom Manager refused at this time, 06/17/19 Summary Purpose [...] DATE CREATED AUTHOR AUTHOR'S ORGANIZ ATION 05/04/2022 [facility] DATE CREATED AUTHOR AUTHOR'S ORGANIZ ATION 10/03/2022 [facility] ([place]) Source Comments (unrecognize d section and content) In the event this informatio n is protected by the Federal Confidentiality of Alcohol and Drug Abuse Patient Records regulations: The Federal rules restrict any use of the information to criminally investigate or prosecute any alcohol or drug abuse patient.[facility] Care Team (unrecognized sect ion and content) Personnel Name: AMI EISENBERG DO Address: [address] [place] [address] Care Team Personnel Name: AMI EISENBERG DO Position: P4 Physician - Primary Care Member Role: Primary Care Physician Address: Address: [address] [place] [address] Name: ASYA SPARKS MD Position: P4 Physician - Cardiology Member Role: Perlite Grinder Address: Address: [address] [place] [address] Care Team Related Persons Name: CLAUDIA DUBOSE Name: [place]OR[place] WHALEN Care Team (unrecognized sect ion and content) Personnel Name: AMI EISENBERG DO Address: Address: [address] [place] [address] Care Team Personnel Name: AMI EISENBERG DO Position: P4 Physician - Primary Care Member Role: Primary Care Physician Address: Address: [address] [place] [address] Name: ASYA SPARKS MD Position: P4 Physician - Cardiology Address: Address: [address] [place] [address] Care Team Related Persons Name: CLAUDIA DUBOSE Name: [place] WHALEN Care Team Personnel Name: AMI EISENBERG DO Position: P4 Physician - Primary Care Med Service: Active Provider Member Role: Primary Care Physician Address: Address: [address] [place] [address] Name: ASYA SPARKS MD Position: P4 Physician - Cardiology Med Service: Employed Provider Member Role: Perlite Grinder Address: Address: [address] [place] [address] Care Team Related Persons Name: CLAUDIA DUBOSE Name: [place] WHALEN Care Team Personnel Name: AMI EISENBERG DO Position: P4 Physician - Primary Care Med Service: Active Provider Member Role: Primary Care Physician Address: Address: [address] [place] [address] Name: ASYA SPARKS MD Position: P4 Physician - Cardiology Med Service: Employed Provider Member Role: Perlite Grinder Address: Address: [address] [place] [address] Care Team Related Persons Name: CLAUDIA DUBOSE [...] BE BASED ON THE PRIMARY CLINICAL RECORDS. [employer] provides no warranty or guarantee of the accuracy or completeness of information in this document.
== END | disposition home or self-care (01) ==
LOC: POLAB3 14:57
PROVIDERS: PCP Family Medicine Geriatric Medicine; Visit Provider Internal Medicine Nephrology
DX: E03.9 Hypothyroidism, unspecified (principal); N18.32 Chronic kidney disease, stage 3b; R53.83 Other fatigue; E78.5 Hyperlipidemia, unspecified
CPT/HCPCS: 36415; 80053; 80061; 84100; 84443; 85025

== ENCOUNTER 2023-10-08 14:05 | Outpatient (CLI) | payer MEDICAID, SELFPAY ==
[2023-10-08] MEDS: 0.9% Normal Saline (1000mL) 1,000 ML 999 ML IV (14:23)
[2023-10-08] MEDS: 0.9% NaCl Peripheral Flush Adult/Peds IV (14:23)
[2023-10-08 14:24] VITALS: BP 164/88; PULSE 62; RESP 16; TEMP 36.2; O2SAT 95; BMI 30.5
[2023-10-08 14:40] LABS: Absolute Lymphocyte Count 1.59 X10^3/uL (0.83-4.51); Absolute Neutrophil Count 4.9 X10^3/uL (2.0-7.7); Basophil# 0.07 X10^3/uL; Basophil% 0.9 % (0-1); Eosinophil# 0.07 X10^3/uL; Eosinophils% 0.9 % (0-5); Hematocrit 44.1 % (40-54); Hemoglobin 14.9 g/dL (13.0-16.5); Lymphocyte # 1.59 X10^3/ul (0.83-4.51); Lymphocyte % 21.5 % (19-41); Mean Corp Hgb Conc 33.8 g/dL (32-36); Mean Corpuscular Hgb 31.9 pg (27.0-32.0); Mean Corpuscular Volume 94.4 fL (80-94); Mean Platelet Vol. 10.9 fl (6.2-12.0); Monocyte# 0.73 X10^3/uL; Monocyte% 9.9 % (0-10); NRBC Flagged by Analyzer 0 % (0-5); Neutrophil % 66.5 % (47-70); Platelet Count 274 K/mm3 (150-450); RBC Distribution Width SD 48.7 fl (35.1-43.9); Red Blood Count 4.67 M/mm3 (4.6-6.2); White Blood Count 7.4 K/mm3 (4.4-11.0)
[2023-10-08 15:08] LABS: ALB/GLOB Ratio 0.9 RATIO (0.9-2.4); AST(SGOT) 17 U/L (15-37); Alanine Aminotransfer ALT/SGPT 32 U/L (16-61); Albumin, Serum 3.4 g/dL (3.2-5.0); Alkaline Phosphatase 93 U/L (45-117); Anion Gap 7 (5-15); BUN 22 mg/dL (7-18); BUN/Creat Ratio 11.8 RATIO (10-20); CPK Total, Creatine Kinase 235 U/L (39-308); Calcium,Total 8.9 mg/dL (8.5-10.1); Chloride 106 mmol/L (98-107); Creatinine, Serum 1.87 mg/dL (0.70-1.30); EST Glomerular Filtration Rate 39 mL/min (>60); Est Glom Filt Rate - Afr Amer 47 mL/min (>60); Estimated Creatinine Clearance 49.97 ml/min; Globulin 3.9 g/dL (2.2-4.2); Glucose 143 mg/dL (74-106); Potassium 3.8 mmol/L (3.5-5.1); Protein, Total 7.3 g/dL (6.4-8.2); Sodium Level 138 mmol/L (136-145); Thyroid Stim Hormone (TSH) 4.83 uIU/mL (0.358-3.74); Troponin-I HS 33 pg/mL (3.0-78.0)
[2023-10-08 15:28] VITALS: BP 173/93; PULSE 70; RESP 16; TEMP 36.6; O2SAT 95
[2023-10-10 03:07] LABS: Myoglobin, Serum 471 ng/mL (28-72)
== END 2023-10-08 14:06 | disposition home or self-care (01) ==
LOC: MEDOUTP 14:05
PROVIDERS: PCP Family Medicine Geriatric Medicine; Referring Provider Family Medicine Geriatric Medicine; Visit Provider Family Medicine Geriatric Medicine
DX: E86.0 Dehydration (principal); I95.9 Hypotension, unspecified
CPT/HCPCS: 96360; 36415; 80053; 82550; 83874; 84443; 84484; 85025; 87086; A4216; J7030

== ENCOUNTER 2023-10-08 16:34 | Emergency (ER) | payer MEDICAID, SELFPAY ==
[2023-10-08] VITALS (10 sets, daily range): BP systolic 89–188; BP diastolic 65–101; PULSE 60–92; RESP 17–22; TEMP 36.2–36.8; O2SAT 87–98; BMI 31.4
--- NOTE | 2023-10-08 16:57 | ED.RN ---
NO OLD EKG
--- NOTE | 2023-10-08 17:14 | CT_ITS ---
STUDY: CT BRAIN WITHOUT CONTRAST REASON FOR EXAM: Male, 63 years old. Dizziness RADIATION DOSAGE (If Supplied By Facility): CTDIvol = ( 47.06 ) mGy, DLP = ( 925.62 ) mGycm TECHNIQUE: Transaxial CT imaging of the brain was performed without administration of intravenous contrast material. Individualized dose optimization techniques were used for this CT. COMPARISON: No relevant priors. FINDINGS: Normal soft tissue structures. Normal calvarium. There is mild cerebral atrophy with widening of the extra-axial spaces and ventricular dilatation. There are areas of decreased attenuation within the white matter tracts of the supratentorial brain, consistent with microvascular disease changes. Normal basal ganglia and thalami. Normal brainstem. Normal cerebellum. There is no intracranial hemorrhage. There are no findings of an acute ischemic infarction. Normal visualized paranasal sinuses. CT/Brain/Head without Contrast IMPRESSION: Chronic involutional changes of the brain. Electronically Signed: Fabio Chavez MD at 18:34 EDT ,
--- NOTE | 2023-10-08 17:14 | EKG12_ITS ---
Test Reason : DIZZINESS Blood Pressure : / mmHG Vent. Rate : 062 BPM Atrial Rate : 062 BPM P-R Int : 146 ms QRS Dur : 102 ms QT Int : 428 ms P-R-T Axes : 048 -14 120 degrees QTc Int : 434 ms Normal sinus rhythm Left ventricular hypertrophy with repolarization abnormality ( R in aVL , Kumar product ) Inferior infarct , age undetermined Abnormal ECG Confirmed by Miah Dsouza ([id number]), script editor LISETTE STEWART ([id number]) on 10/09/2023 10:38:54 AM Referred By: MADHU SEARS Confirmed By:Miah Dsouza
--- NOTE | 2023-10-08 17:17 | EDS_ITS ---
HPI History of Present Illness Chief Complaint: Dizziness Informant: patient and family Onset/Context/Timing Onset: Days Context: Gradual Onset Timing: Continuous Current Severity: Moderate Maximum Severity: Moderate Narrative Narrative: 63-year-old male has a history of hypertension, multiple MIs CAD multiple stents and chronic kidney disease. He has had dizziness or is felt off balance for about a week. Today was not feeling well and went to see his primary care physician Dr. Dukes. In the office he became very dizzy and had a near syncopal episode but does not believe he ever lost consciousness. He was given IV fluids there. Family states he is also had low pulse ox's at home recently. He is typically not on oxygen. He has had no recent hospitalization. He denies vomiting or diarrhea. No melena. No fever. No dysuria. No headache or chest pain. Prior similar symptoms: No Recent Illness/Hospitalization: No PFSH PFSH Medical History BPH (benign prostatic hyperplasia) Depression GERD (gastroesophageal reflux disease) Heart attack HTN (hypertension) Hypercholesteremia Hyperlipidemia Hypothyroidism Home Medications atorvastatin 80 mg tablet 80 mg PO DAILY 02/23/21 [History Last Taken Unknown] clopidogrel 75 mg tablet 75 mg PO DAILY 02/23/21 [History Last Taken Unknown] omeprazole 40 mg capsule,delayed release 40 mg PO DAILY 02/23/21 [History Last Taken Unknown] bumetanide 1 mg tablet 1 mg PO DAILY 03/29/23 [History Last Taken Unknown] levothyroxine 50 mcg tablet 100 mcg PO DAILY 03/29/23 [History Last Taken Unknown] lisinopril 30 mg tablet 30 mg PO DAILY 10/08/23 [History Last Taken Unknown] Allergy/AdvReac Type Severity Reaction Status Date / Time No Known Allergies Allergy Verified 10/08/23 14:16 Family History Father Prostate cancer Mother Throat cancer Brother Down syndrome Surgical History Hx of tonsillectomy Stented coronary artery Social History Smoking Status: Former smoker quit date: 03/06/23 substance use type: former substance user ROS ROS ED ROS Narrative Dizziness. Lightheaded. Off balance. Not room spinning. No headache. No chest pain. No fever. No vomiting or diarrhea. No melena. Review of Systems ROS Unobtainable: Denies due to encephalopathy Constitutional Constitutional ED: Denies chills or fever(s) Eyes Eyes: Denies blurry vision ENT ENT ED: Denies ear pain Cardiovascular Cardiovascular: Denies chest pain or palpitations Respiratory/Chest Respiratory/Chest: Denies cough or dyspnea Gastrointestinal Gastrointestinal: Denies abdominal pain, constipation, diarrhea, melena, nausea or vomiting Genitourinary Genitourinary ED: Denies dysuria or hematuria Musculoskeletal Musculoskeletal: Denies arthralgias Integumentary Denies abscess Neurologic Neurologic: Denies headache(s) Psychiatric Psychiatric: Denies anxiety Endocrine Endocrinology: Denies cold intolerance Hematologic/Lymphatic Hematologic/Lymphatic: Reports none Allergic/Immunologic Allergic/Immunologic ED: Denies mouth swelling, tongue swelling or urticaria EXAM Physical Exam Narrative Exam Narrative: 63-year-old male vital signs stable afebrile. Initial blood pressure 188/100. Pulse ox 97% on room air no signs hypoxia. He is resting comfortably. H EENT exam pupils are. Legs motions are intact. No facial droop. Normal speech. No signs of trauma to his head. Neck nontender no lymphadenopathy. No meningismus. Lungs clear to auscultation bilaterally. Heart rate about 60. No murmur. Chest wall and ribs nontender. Abdomen soft nontender. Moving all 4 extremities. 5 out of 5 software technician strength. Dorsi plantarflexion intact. Neurologically is awake alert. He is answering questions following commands. NIH is 0. Hallpike negative. Benign exam. Const Vital Signs: 10/08/23 16:35 10/08/23 16:39 10/08/23 17:22 Temperature 98.3 F 97.2 F L Temperature Source Oral Temporal Pulse Rate 60 63 Pulse Rate [Lying] Pulse Rate [Sitting (for 1 minute prior to obtaining)] Pulse Rate [Standing (for 1 minute prior to obtaining)] Respiratory Rate 22 H 19 H Respiratory Effort Normal Respiratory Pattern Normal Blood Pressure 188/100 H 153/88 H Blood Pressure [Lying] Blood Pressure [Sitting (for 1 minute prior to obtaining)] Blood Pressure [Standing (for 1 minute prior to obtaining)] Blood Pressure Mean 129 109 Blood Pressure Mean [Lying] Blood Pressure Mean [Sitting (for 1 minute prior to obtaining)] Blood Pressure Mean [Standing (for 1 minute prior to obtaining)] Pulse Ox 97 95 Oxygen Delivery Method Room Air Room Air Oxygen Flow Rate (L/min) 10/08/23 18:09 10/08/23 18:14 10/08/23 19:00 Temperature 98.2 F Temperature Source Temporal Pulse Rate 67 61 Pulse Rate [Lying] 88 Pulse Rate [Sitting (for 1 minute prior to obtaining)] 89 Pulse Rate [Standing (for 1 minute prior to obtaining)] 83 Respiratory Rate 20 H 18 Respiratory Effort Respiratory Pattern Blood Pressure 105/65 149/71 H Blood Pressure [Lying] 130/84 H Blood Pressure [Sitting (for 1 minute prior to obtaining)] 134/101 H Blood Pressure [Standing (for 1 minute prior to obtaining)] 145/79 H Blood Pressure Mean 78 97 Blood Pressure Mean [Lying] 99 Blood Pressure Mean [Sitting (for 1 minute prior to obtaining)] 112 Blood Pressure Mean [Standing (for 1 minute prior to obtaining)] 101 Pulse Ox 97 94 Oxygen Delivery Method Nasal Cannula Room Air Oxygen Flow Rate (L/min) 2 10/08/23 20:00 10/08/23 21:00 10/08/23 21:00 Temperature Temperature Source Pulse Rate 65 71 71 Pulse Rate [Lying] Pulse Rate [Sitting (for 1 minute prior to obtaining)] Pulse Rate [Standing (for 1 minute prior to obtaining)] Respiratory Rate 18 17 17 Respiratory Effort Respiratory Pattern Blood Pressure 167/78 H 134/80 H 134/80 H Blood Pressure [Lying] Blood Pressure [Sitting (for 1 minute prior to obtaining)] Blood Pressure [Standing (for 1 minute prior to obtaining)] Blood Pressure Mean 107 98 98 Blood Pressure Mean [Lying] Blood Pressure Mean [Sitting (for 1 minute prior to obtaining)] Blood Pressure Mean [Standing (for 1 minute prior to obtaining)] Pulse Ox 91 94 94 Oxygen Delivery Method Room Air Room Air Oxygen Flow Rate (L/min) 10/08/23 22:00 10/08/23 22:30 10/08/23 23:00 Temperature Temperature Source Pulse Rate 66 64 92 Pulse Rate [Lying] Pulse Rate [Sitting (for 1 minute prior to obtaining)] Pulse Rate [Standing (for 1 minute prior to obtaining)] Respiratory Rate 17 18 20 H Respiratory Effort Respiratory Pattern Blood Pressure 89/65 L 138/74 H 158/74 H Blood Pressure [Lying] Blood Pressure [Sitting (for 1 minute prior to obtaining)] Blood Pressure [Standing (for 1 minute prior to obtaining)] Blood Pressure Mean 72 92 95 Blood Pressure Mean [Lying] Blood Pressure Mean [Sitting (for 1 minute prior to obtaining)] Blood Pressure Mean [Standing (for 1 minute prior to obtaining)] Pulse Ox 98 87 89 Oxygen Delivery Method Oxygen Flow Rate (L/min) Positive well nourished and well developed; Negative for cachectic, contractures or unkempt General Appearance ED: well developed and NAD; Negative for unkempt, cachectic, contractures, cyanotic, diaphoretic or pallor Nutritional Appearance: Negative for cachectic HEENT Reports moist mucous membranes; Denies TM's clear or dry mucous membranes HEENT Narrative: Bilateral earwax impactions. Both canals full. Negative for trauma or tenderness Tympanic Membrane ED: Negative for TM's clear Mouth ED: No dry mucous membranes Mouth: No dry mucous membranes Eyes PERRL and EOMs intact bilaterally General Eye ED: Negative for pale conjunctiva, scleral icterus or other Neck no lymphadenopathy, supple and no JVD General: Negative for tenderness Lymph Lymphatic: Negative for other Chest Wall inspection of chest normal and palpation of chest normal Chest: Negative for other Resp normal respiratory effort and clear to auscultation bilaterally Effort and Inspection: Negative for retractions Auscultation: Negative for rales, rhonchi or wheezes Cardio regular rate, regular rhythm, S1 normal heart sound, S2 normal heart sound and no murmurs GI normal to inspection, nondistended, normoactive bowel sounds, non-tender, non- distended and no masses Auscultation: normoactive bowel sounds Palpation: soft; Negative for tender or rebound tenderness present Back/Spine no CVA tenderness General Back: Negative for CVA tenderness Cervical Spine: Negative for cervical spine tenderness Thoracic Spine / Upper Back: Negative for thoracic spinal tenderness or paraspinal muscle tenderness Lumbar Spine / Lower Back: Negative for lumbar spinal tenderness Extremity normal to inspection General Extremety ED: Negative for edema or tenderness General Extremity: Negative for edema Neuro oriented x3 and CN's II-XII intact bilaterally Sensorium / Orientation: alert; Negative for orientation impaired, lethargic or stuporous Motor Exam: strength 5/5 throughout Psych mental status grossly normal Appearance: Negative for unkempt Attitude: No agitated Mood & Affect: Negative for depressed, anxious or tearful Skin no rashes or lesions noted and no wounds General Skin Exam: Negative for jaundice or pallor Lesions: No lesion noted Rashes: No rashes noted Trauma: Negative for abrasion Wounds: Negative for wounds noted MDM MDM MDM Narrative Medical decision making narrative: 63-year-old male with dizziness for a week. Had a near syncopal episode at his doctor's office. Prior to arrival did receive IV fluids and I believe Phenergan at the doctor's office. Exam is benign. Cardiac workup will be entertained. CT of his brain. Repeat exam p.m. patient is anxious. We went over his test results really do not have a specific cause of his symptoms. He does get hypoxic off oxygen and drops to about 85. We will obtain a CTA of his chest to see if we can come up with a cause for his hypoxia. I am also adding a COVID test. He is getting Zofran for his nausea. Nurses irrigated bilateral ears again a significant amount of wax out but on reexamination both canals are still completely impacted with wax. Will be discharged home with Debrox and follow-up with ENT to have his ears irrigated. His symptoms may be from vertigo due to wax impaction. He really does not have significant vertiginous symptoms with moving of his head. His other workup is otherwise negative. He did get up and ambulate to the bathroom without difficulty per nursing. Repeat exam is doing well at 1150. Will be discharged home. History & Record Review Discussion w/independent historian: Patient and Family Additional record(s) reviewed:: Prior inpatient record, Prior outpatient record, Prior ED visit and Prior labs Lab Data Attestation: I reviewed the patient's lab results. Lab results narrative: CBC normal. White count 8. H&H 14 and 43. Platelets 272. PT/INR 13 and 1. Glucose 173. Lactic acid 2.1. Repeat lactic acid is 1.4. Liver enzymes are normal. Troponin normal at 27. Electrolytes show a gap of 7. BUN 22 creatinine 1.84 he has a baseline renal insufficiency. UA normal. COVID, RSV and influenza negative. Labs are consistent with 1 done earlier today but we do not have any old labs for comparison. Labs: Laboratory Results - last 24 hr 10/08/23 10/08/23 10/08/23 16:43 17:30 20:06 WBC 8.0 RBC 4.64 Hgb 14.7 Hct 43.8 MCV 94.4 H MCH 31.7 MCHC 33.6 RDW Std Deviation 49.3 H RDW Coeff of [place] 14.2 Plt Count 272 MPV 11.2 Immature Gran % (Auto) 0.500 Neut % (Auto) 71.0 H Lymph % (Auto) 17.9 L [place] % (Auto) 9.0 Eos % (Auto) 0.6 Baso % (Auto) 1.0 Absolute Neuts (auto) 5.7 Absolute Lymphs (auto) 1.43 Nucleated RBC % 0 PT 13.2 INR 1.0 Sodium 139 Potassium 3.9 Chloride 109 H Carbon Dioxide 23.0 Anion Gap 7 BUN 22 H Creatinine 1.84 H Estim Creat Clear Calc 51.45 Est GFR (MDRD) Af Amer 48 L Est GFR (MDRD) Non-Af 40 L BUN/Creatinine Ratio 12.0 Glucose 173 H Lactic Acid 2.1 H* Calcium 8.8 Total Bilirubin 0.50 AST 21 ALT 31 Alkaline Phosphatase 96 Troponin I High Sens 27 Total Protein 7.4 Albumin 3.5 Globulin 3.9 Albumin/Globulin Ratio 0.9 Urine Color Yellow Urine Clarity Clear Urine pH 7.0 Ur Specific [place] 1.010 Urine Protein 30 H Urine Glucose (UA) Normal Urine Ketones Negative Urine Occult Blood 25 H Urine Nitrite Negative Urine Bilirubin Negative Urine Urobilinogen Normal Ur Leukocyte Esterase Negative Urine RBC 0 SEEN Urine WBC 0-5 SEEN Ur Squamous Epith Cells 0 SEEN Urine Bacteria 0 SEEN Urine Mucus 0 SEEN 10/08/23 21:43 WBC RBC Hgb Hct MCV MCH MCHC RDW Std Deviation RDW Coeff of [place] Plt Count MPV Immature Gran % (Auto) Neut % (Auto) Lymph % (Auto) [place] % (Auto) Eos % (Auto) Baso % (Auto) Absolute Neuts (auto) Absolute Lymphs (auto) Nucleated RBC % PT INR Sodium Potassium Chloride Carbon Dioxide Anion Gap BUN Creatinine Estim Creat Clear Calc Est GFR (MDRD) Af Amer Est GFR (MDRD) Non-Af BUN/Creatinine Ratio Glucose Lactic Acid 1.4 Calcium Total Bilirubin AST ALT Alkaline Phosphatase Troponin I High Sens Total Protein Albumin Globulin Albumin/Globulin Ratio Urine Color Urine Clarity Urine pH Ur Specific [place] Urine Protein Urine Glucose (UA) Urine Ketones Urine Occult Blood Urine Nitrite Urine Bilirubin Urine Urobilinogen Ur Leukocyte Esterase Urine RBC Urine WBC Ur Squamous Epith Cells Urine Bacteria Urine Mucus Radiography Chest X-Ray - ED: 1 View, Read by ED Physician, Read by Radiologist, Heart, Lungs, Mediastinum, Bony Structures, No Acute Disease and Chronic Changes Diagnostic Testing: Clinical Impression(s) from Imaging Studies Brain CT 10/08/23 17:14 IMPRESSION: Chronic involutional changes of the brain. Electronically Signed: Fabio Chavez MD at 18:34 EDT , Chest X-Ray 10/08/23 18:00 IMPRESSION: Normal x-ray examination of the chest. Electronically Signed: Fabio Chavez MD at 18:35 EDT , Chest CTA 10/08/23 20:06 IMPRESSION: CTA chest examination, without a demonstrated pulmonary embolism or arterial dissection. Atherosclerosis. Lower lung atelectasis. Electronically Signed: Faboi Chavez MD at 20:58 EDT , Chest x-ray, portable, single view, interpreted by myself and radiologist shows no acute abnormality. Normal cardiac silhouette. Normal lung garay. Chronic changes. CTA chest shows no PE. No acute abnormality. Chronic changes. Rhythm Strip Rhythm Strip: Sinus Rhythm Rate: 62 Ectopy: None EKG Initial EKG: Attestation: I personally reviewed and interpreted this EKG as follows: Interpretation: Sinus Rhythm and No Acute Injury Pattern Comments: Normal sinus rhythm rate of 62 no acute signs of ND or ischemia. LVH. No dysrhythmia. Old inferior ND. Discharge Plan Triage Chief Complaint: Dizziness ED Provider: Ino Meza Dx/Rx/DC Orders Clinical Impression: Impacted ear wax, Dizziness, Chronic renal insufficiency Instructions: Impacted Earwax Prescriptions: No Action levothyroxine 50 mcg tablet 100 mcg PO DAILY bumetanide 1 mg tablet 1 mg PO DAILY Hold Instructions: MD Ordered atorvastatin 80 mg Tablet 80 mg PO DAILY clopidogrel 75 mg Tablet 75 mg PO DAILY omeprazole 40 mg Capsule,Delayed Release(Dr/Ec) 40 mg PO DAILY lisinopril 30 mg tablet 30 mg PO DAILY Primary Care Provider: Shaka Dukes Chi Referrals: Baljit Kowalski MD [Med Staff - Active Staff] - As soon as possible Shaka Dukes Chi, MD [Primary Care Provider] - As Needed Activity Restrictions/Additional Instructions: You have impacted wax in both ears. Sometimes this can cause severe dizziness. 2 drops of the Debrox to your ears 3 times a day. Call and follow-up with the ear nose and throat doctors across the street Dr. Baljit Kowalski. Call their office tomorrow. They can get you in in 1 to 2 days usually to irrigate your ears out. Follow-up with your primary care physician. Disposition Disposition: Home, Self Care
[2023-10-08 17:27] LABS: Absolute Lymphocyte Count 1.43 X10^3/uL (0.83-4.51); Absolute Neutrophil Count 5.7 X10^3/uL (2.0-7.7); Basophil# 0.08 X10^3/uL; Eosinophil# 0.05 X10^3/uL; Eosinophils% 0.6 % (0-5); Hematocrit 43.8 % (40-54); Hemoglobin 14.7 g/dL (13.0-16.5); Lymphocyte # 1.43 X10^3/ul (0.83-4.51); Lymphocyte % 17.9 % (19-41); Mean Corp Hgb Conc 33.6 g/dL (32-36); Mean Corpuscular Hgb 31.7 pg (27.0-32.0); Mean Corpuscular Volume 94.4 fL (80-94); Mean Platelet Vol. 11.2 fl (6.2-12.0); Monocyte# 0.72 X10^3/uL; NRBC Flagged by Analyzer 0 % (0-5); Neutrophil # 5.68 X10^3/uL (2.7-7.7); Platelet Count 272 K/mm3 (150-450); RBC Distribution Width CV 14.2 % (11.6-14.6); RBC Distribution Width SD 49.3 fl (35.1-43.9); Red Blood Count 4.64 M/mm3 (4.6-6.2)
[2023-10-08 17:38] LABS: Prothrombin Time (Protime)PT. 13.2 SECONDS (11.7-14.9)
--- NOTE | 2023-10-08 18:00 | RAD_ITS ---
STUDY: X-RAY CHEST REASON FOR EXAM: Male, 63 years old. Near syncope TECHNIQUE: Single AP portable view of the chest. COMPARISON: None. FINDINGS: There are monitoring devices. The lungs are clear and expanded. There is no demonstrated pleural abnormality. Normal size heart. Normal mediastinum and quinn. Normal visualized pulmonary arteries. Normal visualized aortic arch and descending thoracic aorta. Normal visualized thoracic spine. Normal visualized ribs, clavicles, and shoulders. There is no demonstrated abnormality of the visualized soft tissue structures of the upper abdomen. RAD/Chest 1 View (Portable) IMPRESSION: Normal x-ray examination of the chest. Electronically Signed: Fabio Chavez MD at 18:35 EDT ,
[2023-10-08 18:05] LABS: ALB/GLOB Ratio 0.9 RATIO (0.9-2.4); AST(SGOT) 21 U/L (15-37); Alanine Aminotransfer ALT/SGPT 31 U/L (16-61); Albumin, Serum 3.5 g/dL (3.2-5.0); Alkaline Phosphatase 96 U/L (45-117); Anion Gap 7 (5-15); BUN 22 mg/dL (7-18); Calcium,Total 8.8 mg/dL (8.5-10.1); Chloride 109 mmol/L (98-107); Creatinine, Serum 1.84 mg/dL (0.70-1.30); EST Glomerular Filtration Rate 40 mL/min (>60); Est Glom Filt Rate - Afr Amer 48 mL/min (>60); Estimated Creatinine Clearance 51.45 ml/min; Globulin 3.9 g/dL (2.2-4.2); Glucose 173 mg/dL (74-106); Potassium 3.9 mmol/L (3.5-5.1); Protein, Total 7.4 g/dL (6.4-8.2); Sodium Level 139 mmol/L (136-145); Troponin-I HS 27 pg/mL (3.0-78.0)
[2023-10-08 18:36] LABS: Lactic Acid 2.1 mmol/L (0.4-1.9)
--- NOTE | 2023-10-08 20:06 | CT_ITS ---
STUDY: CTA CHEST REASON FOR EXAM: Male, 63 years old. Hypoxia RADIATION DOSAGE (If Supplied By Facility): CTDIvol = ( 12.48 ) mGy, DLP = ( 519.22 ) mGycm TECHNIQUE: The examination was performed with the intravenous administration of IV 100mL [id number]-[id number]. Post-processing of the angiographic images was performed, with multiplanar reformation and 3D reconstruction. Individualized dose optimization techniques were used for this CT. COMPARISON: Chest x-ray FINDINGS: Normal enhancement of the main pulmonary artery and right and left pulmonary arteries. Normal enhancement of the bilateral peripheral pulmonary arteries. There is no demonstrated pulmonary embolism. There is atherosclerotic calcification of the aortic arch with tortuosity. There is no demonstrated aortic dissection. There are calcifications and endovascular stents of the coronary arteries. Normal mediastinum. Normal hilar regions. Normal visualized trachea and bronchi. The lungs are well expanded. There is mild lower lung atelectasis. Normal pleura. Normal chest wall structures. There are degenerative changes of thoracic spine. There is T12 compression fracture. Normal visualized upper abdomen. CT/CTA Chest W/WO Contrast IMPRESSION: CTA chest examination, without a demonstrated pulmonary embolism or arterial dissection. Atherosclerosis. Lower lung atelectasis. Electronically Signed: Fabio Chavez MD at 20:58 EDT ,
[2023-10-08] MEDS: Ondansetron 4 MG/2 ML Vial IV (20:11)
[2023-10-08 20:13] LABS: Bacteria 0 SEEN /hpf (None Seen); Mucous, Urine 0 SEEN /hpf (<or=2+); Red Blood Cells-Urine 0 SEEN /hpf (0-5); Squamous Epithelial Cells - UA 0 SEEN /hpf (0-5)
[2023-10-08 20:17] LABS: Color, Urine Yellow (Yellow); Glucose, Dipstick Normal (Normal); Ketone-Dipstick Negative (Negative); Leukocyte Esterase-Dipstick Negative /ul (Negative); Nitrite-Dipstick Negative (Negative); Occult Blood-Urine 25 /ul (Negative); Protein-Dipstick 30 mg/dl (Negative); Urine Bilirubin Dipstick Negative (Negative); Urine Clarity Clear (Clear); Urine Urobilinogen Normal (Normal)
[2023-10-08 20:26] LABS: White Blood Cells 0-5 SEEN /hpf (0-5)
[2023-10-08] MEDS: Carbamide Peroxide 15 ML Bottle 5 DRP OTIC (20:59)
[2023-10-08 21:36] LABS: Reflex Lactate? Y
[2023-10-08 22:13] LABS: Lactic Acid 1.4 mmol/L (0.4-1.9)
[2023-10-09] VITALS: BP 166/98; PULSE 64; RESP 18; O2SAT 92
== END 2023-10-09 00:30 | disposition home or self-care (01) ==
PROVIDERS: Emergency Provider Emergency Medicine; PCP Family Medicine Geriatric Medicine; Visit Provider Emergency Medicine
DX: H61.23 Impacted cerumen, bilateral (principal); R42 Dizziness and giddiness; I12.9 Hypertensive chronic kidney disease with stage 1 through stage 4 chronic kidney disease, or unspecified chronic kidney disease; N18.9 Chronic kidney disease, unspecified; R09.02 Hypoxemia; R55 Syncope and collapse; E86.0 Dehydration; I95.9 Hypotension, unspecified; N39.0 Urinary tract infection, site not specified; E78.00 Pure hypercholesterolemia, unspecified; E03.9 Hypothyroidism, unspecified; Z79.02 Long term (current) use of antithrombotics/antiplatelets; Z79.890 Hormone replacement therapy; Z79.899 Other long term (current) drug therapy; I25.2 Old myocardial infarction; Z87.891 Personal history of nicotine dependence; Z95.5 Presence of coronary angioplasty implant and graft
CPT/HCPCS: 69209; 96360; 36415; 70450; 71045; 71275; 80053; 81001; 82550; 83605; 83874; 84443; 84484; 85025; 85610; 87086; 87631; 93005; 96374; 99285; J7030; Q9967; A4216; J2405

== ENCOUNTER 2023-10-09 17:59 | Inpatient (IN) | payer MEDICAID, SELFPAY ==
[2023-10-09] VITALS (8 sets, daily range): BP systolic 127–226; BP diastolic 60–116; PULSE 55–114; RESP 15–26; TEMP 36.3; O2SAT 86–97; BMI 32.8
--- NOTE | 2023-10-09 18:09 | EKG12_ITS ---
Test Reason : SOB Blood Pressure : / mmHG Vent. Rate : 074 BPM Atrial Rate : 074 BPM P-R Int : 148 ms QRS Dur : 110 ms QT Int : 444 ms P-R-T Axes : 076 -08 070 degrees QTc Int : 492 ms Normal sinus rhythm Moderate voltage criteria for LVH, may be normal variant ( R in aVL , Mccaskill product ) Inferior infarct (cited on or before 08-OCT-2023) Abnormal ECG Confirmed by Miah Dsouza ([id number]), news copy editor COMPA COLLIER ([id number]) on 10/11/2023 7:16:12 AM Referred By: RIDGE Confirmed By:Miah Dsouza
--- NOTE | 2023-10-09 18:09 | CT_ITS ---
STUDY: CT BRAIN WITHOUT CONTRAST REASON FOR EXAM: Male, 63 years old. Dizziness, HIA RADIATION DOSAGE (If Supplied By Facility): CTDIvol = ( 44.99 ) mGy, DLP = ( 812.98 ) mGycm TECHNIQUE: Transaxial CT imaging of the brain was performed without administration of intravenous contrast material. Individualized dose optimization techniques were used for this CT. COMPARISON: October 08, 2023 FINDINGS: Normal soft tissue structures. Normal calvarium. There is mild cerebral atrophy with widening of the extra-axial spaces and ventricular dilatation. There are areas of decreased attenuation within the white matter tracts of the supratentorial brain, consistent with microvascular disease changes. Normal basal ganglia and thalami. Normal brainstem. There is diminished density of the left cerebellum with possible recent infarct. There is no intracranial hemorrhage. Normal visualized paranasal sinuses. CT/Brain/Head without Contrast IMPRESSION: Chronic involutional changes of the brain. 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 Electronically Signed: Fabio Chavez MD at 20:11 EDT ,
--- NOTE | 2023-10-09 18:10 | EDS_ITS ---
HPI History of Present Illness Chief Complaint: Dizziness Narrative Narrative: 63-year-old male presents with 2 days of dizziness, nausea and vomiting. He was at the infusion center 2 days ago, went to see his primary care provider Dr. Dukes, and came to the emergency department because of dizziness and near syncope. He was diagnosed with bilateral cerumen impaction and discharged. He states that since then he has had continued dizziness, with nausea and vomiting. He has vomited too many times to count. Whenever he tries to get up, or move his head, he gets vertiginous and vomits. He denies any chest pain or shortness of breath, no fever or cough. No abdominal pain. He states that the room is spinning whenever he moves his head. [facility] Medical History BPH (benign prostatic hyperplasia) Depression GERD (gastroesophageal reflux disease) Heart attack HTN (hypertension) Hypercholesteremia Hyperlipidemia Hypothyroidism Home Medications atorvastatin 80 mg tablet 80 mg PO DAILY 02/23/21 [History Last Taken Unknown] clopidogrel 75 mg tablet 75 mg PO DAILY 02/23/21 [History Last Taken Unknown] omeprazole 40 mg capsule,delayed release 40 mg PO DAILY 02/23/21 [History Last Taken Unknown] bumetanide 1 mg tablet 1 mg PO DAILY 03/29/23 [History Last Taken Unknown] levothyroxine 50 mcg tablet 100 mcg PO DAILY 03/29/23 [History Last Taken Unknown] lisinopril 30 mg tablet 30 mg PO DAILY 10/08/23 [History Last Taken Unknown] Allergy/AdvReac Type Severity Reaction Status Date / Time No Known Allergies Allergy Verified 10/09/23 17:59 Family History Father Prostate cancer Mother Throat cancer Brother Down syndrome Surgical History Hx of tonsillectomy Stented coronary artery Social History Smoking Status: Former smoker quit date: 03/06/23 substance use type: former substance user ROS ROS ED ROS Narrative Constitutional: No fever, no chills. HEENT: No sore throat. No neck pain. No loss of vision. No rhinorrhea. Cardiovascular: No chest pain. No palpitations. No pedal edema. Respiratory: No cough, no shortness of breath. Abdominal: No abdominal pain. Multiple episodes of nausea and vomiting. Genitourinary: No dysuria. No hematuria. Musculoskeletal: No myalgias. No arthralgias. Neurologic: No headaches. Positive dizziness. Positive lightheadedness. Dizziness with movement of head. Skin: No rash. No change in color. Psychiatric: No depression. No anxiety. EXAM Physical Exam Narrative Exam Narrative: Afebrile. Vital signs noted. HEENT: Normocephalic. Atraumatic. PERRL, EOMI. Neck soft and supple. No point tenderness or step off. Positive abrasion with dried blood at tip of nose. No active bleeding. Cardiovascular: Regular rate and rhythm. No murmurs, rubs, or gallops appreciated. Respiratory: No tachypnea. Lungs clear to auscultation bilaterally. Gastrointestinal: Abdomen soft, nontender, with normoactive bowel sounds. No rebound or guarding. Neurological: Awake. Alert. Nonfocal, nonlateralizing. Skin: No rash. Normal color. No pallor. Musculoskeletal: No pedal edema. Full range of motion extremities. Const Vital Signs: 10/09/23 18:00 10/09/23 18:07 10/09/23 19:00 Temperature 97.4 F L Temperature Source Oral Pulse Rate 74 72 55 L Respiratory Rate 26 H 20 H 18 Respiratory Effort Respiratory Pattern Blood Pressure 185/82 H 127/60 H Blood Pressure Mean 116 82 Pulse Ox 86 92 94 Oxygen Delivery Method Room Air Nasal Cannula Nasal Cannula Oxygen Flow Rate (L/min) 3 2 10/09/23 19:22 10/09/23 20:00 10/09/23 21:15 Temperature Temperature Source Pulse Rate 65 114 H Respiratory Rate 18 20 H Respiratory Effort Normal Respiratory Pattern Normal Blood Pressure 171/105 H 140/101 H Blood Pressure Mean 127 114 Pulse Ox 90 97 Oxygen Delivery Method Nasal Cannula Nasal Cannula Oxygen Flow Rate (L/min) 2 4 MDM MDM MDM Narrative Medical decision making narrative: In review of his problem list, he has had benign positional vertigo. In the differential would be BPV versus cerebellar stroke versus cerumen impaction versus ACS. I have lower suspicion for ACS as he has no chest pain. Given his nausea and vomiting, lipase will be obtained as well but he is not having abdominal pain which makes pancreatitis lower on the differential. EKG was obtained and interpreted by myself independently as normal sinus rhythm at 74 bpm without ectopy or acute ST changes. No STEMI. Patient will be bolused normal saline. He does have elevated blood pressure of 185/82 here. Additionally, he was hypoxic on room air and states he does not wear nasal madhavi luz oxygen at home. I am unsure as to the cause of his hypoxia, but D-dimer will be obtained as well to help rule out pulmonary embolism. He may have aspiration pneumonia from his profuse vomiting. However, I reviewed his ED report from yesterday including his laboratory work and CT scan. CT of the brain showed no acute process. His laboratory work was grossly unremarkable at that time. He was hypoxic, and they did a CTA of the chest which showed no pulmonary embolism. His workup today and review of his laboratory work shows a leukocytosis of 15.1 which may be demargination from vomiting, hemoglobin normal at 16.1, hematocrit 48.9, platelet count normal at 318. BUN of 21 and creatinine 1.9. Glucose is elevated 242 with a normal anion gap of 7. I have no concern for diabetic ketoacidosis. LFTs are grossly unremarkable. Lipase is normal at 27 so I do not feel he has a pancreatitis causing his nausea and vomiting. Urinalysis was reviewed and is negative for ketones or infection. I do not feel antibiotics are indicated. High- sensitivity troponin is negative at 27. Chest x-ray interpreted by myself and 1 view shows atelectasis on my independent interpretation. I reviewed the radiology report which confirms my independent interpretation. There is no pneumonia or pneumothorax. In discussion with his family, he was a smoker for many years so I feel that he may be having a COPD exacerbation with his hypoxia. Of significance is the CT of the brain that was performed again today. While there are chronic changes, there is concern for possible left cerebellar stroke Upon repeat examination, patient states he feels improved after 2 doses of Zofran. However, when he turns his head to the right, he states he gets nauseated and vomits. He has a normal [id number] cerebellar test currently. Given his CT findings, I discussed the patient with the hospitalist, Dr. Reyes, for admission and further workup. Patient is in stable condition. The hospitalist did request that I speak with the telestroke neurologist/teleneurology for further recommendations for the cerebellar stroke. I was able to discuss the patient with Dr. Roman at [facility] who suggested continuing Plavix but not necessarily to start aspirin, and obtain a CTA of the head and neck to make sure that there is no critical stenosis. As long as there is no critical stenosis, it was felt that he could be admitted here to the hospitalist with telestroke neurology consult in the morning. Additionally, he reviewed the CT imaging, and did not see an unusually large left cerebellar stro ke. Currently, patient is in stable condition. History & Record Review Discussion w/independent historian: Patient and Family Additional record(s) reviewed:: Prior ED visit Lab Data Attestation: I reviewed the patient's lab results. Labs: Laboratory Results - last 24 hr 10/09/23 10/09/23 18:07 18:50 WBC 15.1 H RBC 5.07 Hgb 16.1 Hct 48.9 MCV 96.4 H MCH 31.8 MCHC 32.9 RDW Std Deviation 50.6 H RDW Coeff of Rosalia 14.4 Plt Count 318 MPV 10.8 D-Dimer Quant (PE/DVT) 0.49 Sodium 140 Potassium 3.5 Chloride 108 H Carbon Dioxide 25.0 Anion Gap 7 BUN 21 H Creatinine 1.90 H Estim Creat Clear Calc 48.07 Est GFR (MDRD) Af Amer 46 L Est GFR (MDRD) Non-Af 38 L BUN/Creatinine Ratio 11.1 Glucose 242 H Calcium 9.3 Total Bilirubin 0.70 AST 25 ALT 36 Alkaline Phosphatase 92 Troponin I High Sens 27 Total Protein 8.1 Albumin 3.7 Globulin 4.4 H Albumin/Globulin Ratio 0.8 L Lipase 27 Urine Color Yellow Urine Clarity Clear Urine pH 7.0 Ur Specific [place] 1.010 Urine Protein 500 H Urine Glucose (UA) 250 H Urine Ketones Negative Urine Occult Blood 25 H Urine Nitrite Negative Urine Bilirubin Negative Urine Urobilinogen Normal Ur Leukocyte Esterase Negative Urine RBC 0-5 SEEN Urine WBC 0 SEEN Ur Squamous Epith Cells 0 SEEN Urine Bacteria 0 SEEN Urine Mucus 0 SEEN Radiography Diagnostic Testing: Clinical Impression(s) from Imaging Studies Brain CT 10/09/23 18:09 IMPRESSION: Chronic involutional changes of the brain. 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 Electronically Signed: Fabio Chavez MD at 20:11 EDT , Chest X-Ray 10/09/23 19:12 IMPRESSION: Lower lung atelectasis. Electronically Signed: Fabio Chavez MD at 20:21 EDT , Discharge Plan Dx/Rx/DC Orders Clinical Impression: Dizziness, Cerebellar stroke, Nausea and vomiting Disposition Disposition: Acute Care [facility]
[2023-10-09 18:25] LABS: Hematocrit 48.9 % (40-54); Hemoglobin 16.1 g/dL (13.0-16.5); Mean Corp Hgb Conc 32.9 g/dL (32-36); Mean Corpuscular Hgb 31.8 pg (27.0-32.0); Mean Corpuscular Volume 96.4 fL (80-94); Mean Platelet Vol. 10.8 fl (6.2-12.0); Platelet Count 318 K/mm3 (150-450); RBC Distribution Width CV 14.4 % (11.6-14.6); RBC Distribution Width SD 50.6 fl (35.1-43.9); Red Blood Count 5.07 M/mm3 (4.6-6.2); White Blood Count 15.1 K/mm3 (4.4-11.0)
[2023-10-09 18:37] LABS: D-Dimer Quantitative (DVT/PE) 0.49 FEU/ug/m (0.27-0.49)
[2023-10-09 18:47] LABS: ALB/GLOB Ratio 0.8 RATIO (0.9-2.4); AST(SGOT) 25 U/L (15-37); Alanine Aminotransfer ALT/SGPT 36 U/L (16-61); Albumin, Serum 3.7 g/dL (3.2-5.0); Alkaline Phosphatase 92 U/L (45-117); Anion Gap 7 (5-15); BUN 21 mg/dL (7-18); BUN/Creat Ratio 11.1 RATIO (10-20); Calcium,Total 9.3 mg/dL (8.5-10.1); Chloride 108 mmol/L (98-107); EST Glomerular Filtration Rate 38 mL/min (>60); Est Glom Filt Rate - Afr Amer 46 mL/min (>60); Estimated Creatinine Clearance 48.07 ml/min; Globulin 4.4 g/dL (2.2-4.2); Glucose 242 mg/dL (74-106); Lipase 27 U/L (13-75); Potassium 3.5 mmol/L (3.5-5.1); Protein, Total 8.1 g/dL (6.4-8.2); Sodium Level 140 mmol/L (136-145); Troponin-I HS 27 pg/mL (3.0-78.0)
[2023-10-09 19:02] LABS: Bacteria 0 SEEN /hpf (None Seen); Mucous, Urine 0 SEEN /hpf (<or=2+); Squamous Epithelial Cells - UA 0 SEEN /hpf (0-5); White Blood Cells 0 SEEN /hpf (0-5)
[2023-10-09 19:04] LABS: Color, Urine Yellow (Yellow); Glucose, Dipstick 250 mg/dl (Normal); Ketone-Dipstick Negative (Negative); Leukocyte Esterase-Dipstick Negative /ul (Negative); Nitrite-Dipstick Negative (Negative); Occult Blood-Urine 25 /ul (Negative); Protein-Dipstick 500 mg/dl (Negative); Urine Bilirubin Dipstick Negative (Negative); Urine Clarity Clear (Clear); Urine Urobilinogen Normal (Normal)
[2023-10-09] MEDS: 0.9% Normal Saline (1000mL) 1,000 ML 1000 ML IV (19:09)
--- NOTE | 2023-10-09 19:12 | RAD_ITS ---
STUDY: X-RAY CHEST REASON FOR EXAM: Male, 63 years old. Hypoxia TECHNIQUE: Single AP portable view of the chest. COMPARISON: October 08, 2023 FINDINGS: There are monitoring devices. There is mild lower lung atelectasis. There is no demonstrated pleural abnormality. Normal size heart. Normal mediastinum and quinn. Normal visualized pulmonary arteries. Normal visualized aortic arch and descending thoracic aorta. Normal visualized thoracic spine. Normal visualized ribs, clavicles, and shoulders. There is no demonstrated abnormality of the visualized soft tissue structures of the upper abdomen. RAD/Chest 1 View (Portable) IMPRESSION: Lower lung atelectasis. Electronically Signed: Fabio Chavez MD at 20:21 EDT ,
[2023-10-09 19:27] LABS: Red Blood Cells-Urine 0-5 SEEN /hpf (0-5)
[2023-10-09] MEDS: Ondansetron 4 MG/2 ML Vial IV (20:59)
--- NOTE | 2023-10-09 21:10 | PCM.HP.STD ---
[facility] - General General Date of Admission: 10/09/23 Date of Service: 10/09/23 Chief Complaint: Vertigo, Nausea, Vomiting and SOB. HPI Narrative JACQUELINE NIEVES, is a 63 M with a past medical history of essential hypertension, hyperlipidemia, hypothyroidism, obesity; with BMI of 32.9 this admission, CAD; s/p OK with subsequent stent, chronic kidney disease; stage III (with baseline creatinine ~1.9 mg/dL), previous history of tobacco abuse (quit 2022), BPH, depression, GERD on OA who presents to [facility] ER complaining of vertigo, nausea, vomiting and SOB. Mr. Nieves reports his symptoms began approximately 2 days prior to admission with the abrupt onset of dizziness followed by severe nausea and multiple episodes of bilious emesis. He was then evaluated by his primary care physician, Dr. Dukes, and then he came to the ER on October 08, 2023 for the same complaints due to progressive worsening of his symptoms. Ultimately, after his CT scan of the brain showed no acute process that would explain his symptoms he was diagnosed with bilateral cerumen impaction and then discharged home. Unfortunately, he has had continued dizziness with nausea and several episodes of bilious emesis he claims are too numerous to count along with a presyncopal event. He goes on to state that whenever he tries to get up or move his head his vertigo becomes acutely worse followed by fits of vomiting. He feels the room spinning whenever he moves his head. He denies related fever, chills, chest pain, shortness of breath, abdominal pain or similar previous episodes. In the ER his CT scan of the brain revealed evidence of recent Left cerebellar CVA in addition to signs of microvascular disease along with mild cerebral atrophy plus widening of the extra-axial spaces and ventricular dilatation complicated by clinical evidence of persistent vertigo and intractable nausea & vomiting and he was then admitted to the PCU for ongoing care for stay that is expected to be greater than 48 hours. [facility] Medical History BPH (benign prostatic hyperplasia) Depression GERD (gastroesophageal reflux disease) Heart attack HTN (hypertension) Hypercholesteremia Hyperlipidemia Hypothyroidism Home Medications atorvastatin 80 mg tablet 80 mg PO DAILY 02/23/21 [History Last Taken Unknown] clopidogrel 75 mg tablet 75 mg PO DAILY 02/23/21 [History Last Taken Unknown] omeprazole 40 mg capsule,delayed release 40 mg PO DAILY 02/23/21 [History Last Taken Unknown] bumetanide 1 mg tablet 1 mg PO DAILY 03/29/23 [History Last Taken Unknown] levothyroxine 50 mcg tablet 100 mcg PO DAILY 03/29/23 [History Last Taken Unknown] lisinopril 30 mg tablet 30 mg PO DAILY 10/08/23 [History Last Taken Unknown] Allergy/AdvReac Type Severity Reaction Status Date / Time No Known Allergies Allergy Verified 10/09/23 17:59 Family History Father Prostate cancer Mother Throat cancer Brother Down syndrome Surgical History Hx of tonsillectomy Stented coronary artery Social History Smoking Status: Former smoker quit date: 03/06/23 substance use type: former substance user ROS ROS Narrative Review of systems: General: Patient denies fever or chills. HENT: Denies headache, denies stuffy nose, denies sore throat EYES: Denies changes in vision or discharge from eyes. Resp: Denies cough, denies shortness of breath Cardiac: Patient admits to near syncope but he denies chest pain, palpitations, heart racing or pedal edema. GI: Patient admits to persistent nausea with several episodes of bilious emesis but he denies abdominal pain, denies changes in bowel. : Denies changes in urination Extremity: Denies swelling Musculoskeletal: Feels somewhat generally weak and unwell but denies arthralgias or myalgias. Neuro: Patient admits to dizziness and lightheadedness made worse with head movement as per HPI. He denies headache, paresthesias or focal neurologic weakness. Heme: Denies any bleeding or bruising Skin: Denies rashes Psychiatric: No complaints voiced related to uncontrolled depression or anxiety. Endocrine: No polyuria, polydipsia or polyphagia. The rest of the 14 point ROS was negative except for positives in HPI. Vital Signs Vital Signs Vital Signs: 10/09/23 18:00 10/09/23 18:07 10/09/23 19:00 Temperature 97.4 F L Temperature Source Oral Pulse Rate 74 72 55 L Respiratory Rate 26 H 20 H 18 Respiratory Effort Respiratory Pattern Blood Pressure 185/82 H 127/60 H Blood Pressure Mean 116 82 Pulse Ox 86 92 94 Oxygen Delivery Method Room Air Nasal Cannula Nasal Cannula Oxygen Flow Rate (L/min) 3 2 10/09/23 19:22 10/09/23 20:00 Temperature Temperature Source Pulse Rate 65 Respiratory Rate 18 Respiratory Effort Normal Respiratory Pattern Normal Blood Pressure 171/105 H Blood Pressure Mean 127 Pulse Ox 90 Oxygen Delivery Method Nasal Cannula Oxygen Flow Rate (L/min) 2 Weight Weight: 229 lb 4.492 oz Body Mass Index (BMI) 32.8 Physical Exam Const alert and oriented x3 General Appearance: cooperative HEENT normocephalic, head/scalp atraumatic, hearing grossly normal bilaterally and moist oral mucous membranes HEENT Narrative: Abrasion noted at tip of nose with dried blood. Eyes PERRL and EOMs intact bilaterally Neck no lymphadenopathy and supple Resp normal respiratory effort, no retractions, no use of accessory muscles and clear to auscultation bilaterally Cardio regular rate and regular rhythm GI normal to inspection, nondistended, normoactive bowel sounds, soft to palpation, non-tender and non-distended Extremity normal to inspection, full ROM and no clubbing, cyanosis or edema Skin Skin Narrative: Patient has abrasion at tip of nose but has no evidence of jaundice or rash. Neuro oriented x3, CN's II-XII intact bilaterally and moves all extremities Neuro Narrative: Patient is dizzy with head movement and appears exhausted after recent difficult Morales placement. Sensorium / Orientation: awake, alert, oriented to person, oriented to place and oriented to time Speech: speech normal Motor Exam: strength 5/5 throughout Psych affect normal Results Medical Records Data Attestation: I reviewed the patient's medical records Lab / Micro Data Attestation: I reviewed the patient's lab results. 10/09/23 18:07 10/09/23 18:07 Labs: Laboratory Results - last 24 hr 10/09/23 18:07: WBC 15.1 H, RBC 5.07, Hgb 16.1, Hct 48.9, MCV 96.4 H, MCH 31.8, MCHC 32.9, RDW Std Deviation 50.6 H, RDW Coeff of [place] 14.4, Plt Count 318, MPV 10.8, D-Dimer Quant (PE/DVT) 0.49, Sodium 140, Potassium 3.5, Chloride 108 H, Carbon Dioxide 25.0, Anion Gap 7, BUN 21 H, Creatinine 1.90 H, Estim Creat Clear Calc 48.07, Est GFR (MDRD) Af Amer 46 L, Est GFR (MDRD) Non-Af 38 L, BUN/Creatinine Ratio 11.1, Glucose 242 H, Calcium 9.3, Total Bilirubin 0.70, AST 25, ALT 36, Alkaline Phosphatase 92, Troponin I High Sens 27, Total Protein 8.1, Albumin 3.7, Globulin 4.4 H, Albumin/Globulin Ratio 0.8 L, Lipase 27 10/09/23 18:50: Urine Color Yellow, Urine Clarity Clear, Urine pH 7.0, Ur Specific [place] 1.010, Urine Protein 500 H, Urine Glucose (UA) 250 H, Urine Ketones Negative, Urine Occult Blood 25 H, Urine Nitrite Negative, Urine Bilirubin Negative, Urine Urobilinogen Normal, Ur Leukocyte Esterase Negative, Urine RBC 0-5 SEEN, Urine WBC 0 SEEN, Ur Squamous Epith Cells 0 SEEN, Urine Bacteria 0 SEEN, Urine Mucus 0 SEEN Imaging Radiology Impression Brain CT 10/09/23 18:09 IMPRESSION: Chronic involutional changes of the brain. 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 Electronically Signed: Fabio Chavez MD at 20:11 EDT Reading Location ID and State: [id number] / [place] , Service support , Chest X-Ray 10/09/23 19:12 IMPRESSION: Lower lung atelectasis. Electronically Signed: Fabio Chavez MD at 20:21 EDT , [facility] Imaging Services [address] [place] [address] CTA Head AND Neck W/ Contrast MR#: [id number] Acct: [id number] Name: JACQUELINE NIEVES Jr. Rep #: [id number] : 1960 M 63 From: Fabio Chavez MD PCP: Dr. Shaka Dukes MD Status: ADM IN Study: CTA Head AND Neck W/ Contrast Date of Exam: 10/09/23 Exam# [id number] Ordering Dr: Long Thomason MD ADDENDUM by Dr. Fabio Chavez MD on 10/09/23 at 2309 STUDY: CTA HEAD AND NECK WITH CONTRAST REASON FOR EXAM: Male, 63 years old. Cerebellar stroke RADIATION DOSAGE (If Supplied By Facility): CTDIvol = ( 26.20 ) mGy, DLP = ( 706.38 ) mGycm TECHNIQUE: CT angiography was performed with a multi-detector CT scanner. Data acquisition was obtained from the skull base through the vertex following intravenous administration of IV 100mL Isovue-370. MIP images were reconstructed from the axial data set. Post-processing of the angiographic images was performed, with multiplanar reformation and 3D reconstruction. Individualized dose optimization techniques were used for this CT. COMPARISON: No relevant priors. FINDINGS: Normal bilateral petrous carotid arteries. Normal right cavernous carotid artery with a normal supraclinoid bifurcation. Normal left cavernous carotid artery with a normal supraclinoid bifurcation. Normal right A1 segments of the anterior cerebral artery. There is hypoplastic development of the left A1 segment of the anterior cerebral arteries with an atretic but intact artery. Normal intact anterior communicating artery (ACOM). Normal bilateral A2 segments of the anterior cerebral arteries. Normal right M1 and M2 segments of the middle cerebral arteries, with a normal M1 bifurcation. Normal left M1 and M2 segments of the middle cerebral arteries, with a normal M1 bifurcation. There is non-visualization of the right posterior communicating artery (PCOM). There is non-visualization of the left posterior communicating artery (PCOM). There is a small atretic right vertebral artery with a dominant left vertebral artery. There is complete occlusion of the left posterior inferior cerebellar artery just beyond the origin, series 2 image 329. Normal basilar artery with a normal basilar bifurcation. The visualized bilateral superior cerebellar (SCA) arteries are normal. Normal bilateral P1, P2 and visualized P3 segments of the posterior cerebral arteries. There is no demonstrated aneurysm of the [place] of [place]. There is left cerebellar diminished density. AORTIC ARCH: There is atherosclerotic calcific plaque formation of the aortic arch and great vessels arising from the aortic arch, without a hemodynamically significant stenosis. There is a bovine origin of the great vessels with a common origin of the brachiocephalic and left common carotid artery. Normal origin of the left subclavian artery. RIGHT CAROTID ARTERIES: There is atherosclerotic tortuous elongation of the right common carotid artery. There is mild atherosclerotic plaque formation with minimal narrowing of the right carotid bulb. There is mild atherosclerotic plaque formation of the origin of the right internal carotid artery with less than 50% cross sectional diameter stenosis. Normal visualized cervical portion of the right internal carotid artery. Normal origin of the right external carotid artery (ECA). LEFT CAROTID ARTERIES: Normal left common carotid artery (CCA). There is mild atherosclerotic plaque formation with minimal narrowing of the left carotid bulb. There is mild atherosclerotic plaque formation of the origin of the left internal carotid artery with less than 50% cross sectional diameter stenosis. Normal visualized cervical portion of the left internal carotid artery. Normal origin of the left external carotid artery (ECA). VERTEBRAL ARTERIES: Normal bilateral vertebral arteries. 10/09/23 230 Date cc: Dr. Long Thomason MD; Dr. Shaka Dukes MD ~* Signed ADDENDUM by Dr. Fabio Chavez MD on 10/09/[address]/CTA Head AND Neck W/ Contrast IMPRESSION: Left posterior inferior cerebellar artery occlusion. Plaque with mild narrowing of the internal carotid arteries. No hemodynamically significant internal carotid artery stenosis. N.B. : FLAKITA Worthington RN, confirmed on 10/09/2023 23:13:38 (ET) that the healthcare facility has received the radiology report. Electronically Signed: Fabio Chavez MD at 23:09 EDT Reading Location ID and State: [facility] / [place] , Service support , 10/09/23 2320 Date cc: Dr. Long Thomason MD; Dr. Shaka Dukes MD ~* Signed ACR Level 3 findings have been noted. An addendum which confirms receipt of the report will follow. STUDY: CTA HEAD AND NECK WITH CONTRAST REASON FOR EXAM: Male, 63 years old. Cerebellar stroke RADIATION DOSAGE (If Supplied By Facility): CTDIvol = ( 26.20 ) mGy, DLP = ( 706.38 ) mGycm TECHNIQUE: CT angiography was performed with a multi-detector CT scanner. Data acquisition was obtained from the skull base through the vertex following intravenous administration of IV 100mL Isovue-370. MIP images were reconstructed from the axial data set. Post-processing of the angiographic images was performed, with multiplanar reformation and 3D reconstruction. Individualized dose optimization techniques were used for this CT. COMPARISON: No relevant priors. FINDINGS: Normal bilateral petrous carotid arteries. Normal right cavernous carotid artery with a normal supraclinoid bifurcation. Normal left cavernous carotid artery with a normal supraclinoid bifurcation. Normal right A1 segments of the anterior cerebral artery. There is hypoplastic development of the left A1 segment of the anterior cerebral arteries with an atretic but intact artery. Normal intact anterior communicating artery (ACOM). Normal bilateral A2 segments of the anterior cerebral arteries. Normal right M1 and M2 segments of the middle cerebral arteries, with a normal M1 bifurcation. Normal left M1 and M2 segments of the middle cerebral arteries, with a normal M1 bifurcation. There is non-visualization of the right posterior communicating artery (PCOM). There is non-visualization of the left posterior communicating artery (PCOM). There is a small atretic right vertebral artery with a dominant left vertebral artery. There is complete occlusion of the left posterior inferior cerebellar artery just beyond the origin, series 2 image 329. Normal basilar artery with a normal basilar bifurcation. The visualized bilateral superior cerebellar (SCA) arteries are normal. Normal bilateral P1, P2 and visualized P3 segments of the posterior cerebral arteries. There is no demonstrated aneurysm of the robinson of [place]. There is left cerebellar diminished density. AORTIC ARCH: There is atherosclerotic calcific plaque formation of the aortic arch and great vessels arising from the aortic arch, without a hemodynamically significant stenosis. There is a bovine origin of the great vessels with a common origin of the brachiocephalic and left common carotid artery. Normal origin of the left subclavian artery. RIGHT CAROTID ARTERIES: There is atherosclerotic tortuous elongation of the right common carotid artery. There is mild atherosclerotic plaque formation with minimal narrowing of the right carotid bulb. There is mild atherosclerotic plaque formation of the origin of the right internal carotid artery with less than 50% cross sectional diameter stenosis. Normal visualized cervical portion of the right internal carotid artery. Normal origin of the right external carotid artery (ECA). LEFT CAROTID ARTERIES: Normal left common carotid artery (CCA). There is mild atherosclerotic plaque formation with minimal narrowing of the left carotid bulb. There is mild atherosclerotic plaque formation of the origin of the left internal carotid artery with less than 50% cross sectional diameter stenosis. Normal visualized cervical portion of the left internal carotid artery. Normal origin of the left external carotid artery (ECA). VERTEBRAL ARTERIES: Normal bilateral vertebral arteries. CT/CTA Head AND Neck W/ Contrast IMPRESSION: Left posterior inferior cerebellar artery occlusion. Plaque with mild narrowing of the internal carotid arteries. No hemodynamically significant internal carotid artery stenosis. Electronically Signed: Fabio Chavez MD at 23:09 EDT , CC: Dr. Long Thomason MD; Dr. Shaka Dukes MD ~ [employer]: Signed Assessment & Plan Assessment/Plan (1) Cerebellar stroke: (2) Nausea and vomiting: QUALIFIERS: Vomiting type: bilious vomiting Qualified Code(s): R11.14 - Bilious vomiting (3) Dizziness: (4) Urinary retention: PLAN: Plan 1. Left Cerebellar CVA suggested on head CT this admission with confirming evidence of posterior CVA symptoms including intractable nausea vomiting and persistent vertigo - Admit to PCU. Continue Plavix and statin as previous but do not add baby aspirin at this time as per neurology's recommendations. Allow for permissive hypertension until CVA confirmed on MRI. Check echocardiogram to evaluate LVEF. Check carotid Doppler to evaluate for stenosis. Check lipid profile and hemoglobin A1c. Give IV Zofran as needed nausea and vomiting. Give Antivert as needed for vertigo symptoms. PT/OT and case management consult and treat on rounds in the a.m. without appreciated in advance. Finally, we will consult [facility] teleneurology to evaluate this patient with help appreciated in advance. 2. BPH; with severe urinary retention requiring Morales placement complicating #1 - Resume Moraels catheter and follow strict I's and O's. Check PSA screen. 3. Chronic kidney disease; stage III (with baseline creatinine ~1.9 mg/dL) - Stable at this time. Check daily BMP to ensure continued stability. 4. Essential hypertension - Hold scheduled antihypertensives in light of #1. 5. Hyperlipidemia - We we will continue statin and check lipid profile this admission. 6. Hypothyroidism - Resume Synthroid as previous plus check TSH in light of #1. 7. Obesity; with BMI of 32.9 this admission - Weight loss will be recommended. 8. CAD; s/p OK with subsequent stent - Stable. Continue Plavix and statin as previous. 9. Previous history of tobacco abuse (quit 2022) - Noted. 10. BPH - Apparently stable with patient currently on no medications at this time for this issue. 11. Depression - Resume home medications as previous. 12. GERD - Give Protonix 40 mg IV daily in light of intractable nausea & vomiting outlined in #1. 13. OA - Give Tylenol as needed. 14. DVT prophylaxis - Heparin 5,000 units SQ twice daily plus SCDs. Total time: Approximately 55 minutes. Charges/Coding Visit Charges Inpatient E&M: 20732 Init Hosp L2
--- NOTE | 2023-10-09 21:37 | CT_ITS ---
ACR Level 3 findings have been noted. An addendum which confirms receipt of the report will follow. STUDY: CTA HEAD AND NECK WITH CONTRAST REASON FOR EXAM: Male, 63 years old. Cerebellar stroke RADIATION DOSAGE (If Supplied By Facility): CTDIvol = ( 26.20 ) mGy, DLP = ( 706.38 ) mGycm TECHNIQUE: CT angiography was performed with a multi-detector CT scanner. Data acquisition was obtained from the skull base through the vertex following intravenous administration of IV 100mL Isovue-370. MIP images were reconstructed from the axial data set. Post-processing of the angiographic images was performed, with multiplanar reformation and 3D reconstruction. Individualized dose optimization techniques were used for this CT. COMPARISON: No relevant priors. FINDINGS: Normal bilateral petrous carotid arteries. Normal right cavernous carotid artery with a normal supraclinoid bifurcation. Normal left cavernous carotid artery with a normal supraclinoid bifurcation. Normal right A1 segments of the anterior cerebral artery. There is hypoplastic development of the left A1 segment of the anterior cerebral arteries with an atretic but intact artery. Normal intact anterior communicating artery (ACOM). Normal bilateral A2 segments of the anterior cerebral arteries. Normal right M1 and M2 segments of the middle cerebral arteries, with a normal M1 bifurcation. Normal left M1 and M2 segments of the middle cerebral arteries, with a normal M1 bifurcation. There is non-visualization of the right posterior communicating artery (PCOM). There is non-visualization of the left posterior communicating artery (PCOM). There is a small atretic right vertebral artery with a dominant left vertebral artery. There is complete occlusion of the left posterior inferior cerebellar artery just beyond the origin, series 2 image 329. Normal basilar artery with a normal basilar bifurcation. The visualized bilateral superior cerebellar (SCA) arteries are normal. Normal bilateral P1, P2 and visualized P3 segments of the posterior cerebral arteries. There is no demonstrated aneurysm of the [place] of [place]. There is left cerebellar diminished density. AORTIC ARCH: There is atherosclerotic calcific plaque formation of the aortic arch and great vessels arising from the aortic arch, without a hemodynamically significant stenosis. There is a bovine origin of the great vessels with a common origin of the brachiocephalic and left common carotid artery. Normal origin of the left subclavian artery. RIGHT CAROTID ARTERIES: There is atherosclerotic tortuous elongation of the right common carotid artery. There is mild atherosclerotic plaque formation with minimal narrowing of the right carotid bulb. There is mild atherosclerotic plaque formation of the origin of the right internal carotid artery with less than 50% cross sectional diameter stenosis. Normal visualized cervical portion of the right internal carotid artery. Normal origin of the right external carotid artery (ECA). LEFT CAROTID ARTERIES: Normal left common carotid artery (CCA). There is mild atherosclerotic plaque formation with minimal narrowing of the left carotid bulb. There is mild atherosclerotic plaque formation of the origin of the left internal carotid artery with less than 50% cross sectional diameter stenosis. Normal visualized cervical portion of the left internal carotid artery. Normal origin of the left external carotid artery (ECA). VERTEBRAL ARTERIES: Normal bilateral vertebral arteries. CT/CTA Head AND Neck W/ Contrast IMPRESSION: Left posterior inferior cerebellar artery occlusion. Plaque with mild narrowing of the internal carotid arteries. No hemodynamically significant internal carotid artery stenosis. Electronically Signed: Fabio Chavez MD at 23:09 EDT ,
--- NOTE | 2023-10-09 21:42 | ECHOCS_ITS ---
Reason For Study: TIA/CVA Procedure This was a 2D Doppler, Color Flow transthoracic echocardiogram. The study was technically difficult. Contrast injection was performed. Exam performed portable in patient room. Left Ventricle Normal LV size. The estimated ejection fraction is 50 %. No evidence for diastolic dysfunction. Hypokinesis of the basal inferolateral and basal lateral coulter. Right Ventricle Normal RV size. Normal systolic function. Atria Normal left atrium. Normal right atrium. No doppler evidence for ASD. Mitral Valve There is no mitral valve stenosis. No mitral valve insufficiency. Tricuspid Valve There is no tricuspid stenosis. Trivial tricuspid valve insufficiency. Unable to estimate RV systolic pressure due to insufficient tricuspid regurgitant envelope. Aortic Valve Trisinus/trileaflet aortic valve. There is no aortic stenosis. No aortic valve insufficiency. Pulmonic Valve There is no pulmonic valvular stenosis. No pulmonic valve insufficiency. Great Vessels Normal aortic root. Pericardium/Pleural No pericardial effusion. Medication Diluted definity 2ml given slow IV push to enhance endocardial definition. Performed a rapid injection of agitated mix of 9 cc saline and 1cc air to assess for atrial septal defect. MMode/2D Measurements & Calculations LVIDd: 6.0 cm IVSd: 0.86 cm LA dimension: 4.5 cm LVIDs: 4.8 cm LVPWd: 0.96 cm FS: 21.0 % LAV(MOD-bp): 66.6 ml LVAd ap4: 45.1 cm2 SV(MOD-sp4): 99.1 ml LAV(MOD-bp) Indexed: 30.1 ml/m2 LVLd ap4: 9.2 cm LAV(MOD-sp2): 59.6 ml EDV(MOD-sp4): 184.5 ml LAV(MOD-sp4): 71.2 ml EDV(sp4-el): 186.8 ml LVAs ap4: 28.3 cm2 LVLs ap4: 8.0 cm ESV(MOD-sp4): 85.4 ml ESV(sp4-el): 85.3 ml EF(MOD-sp4): 53.7 % EF(sp4-el): 54.4 % SV(sp4-el): 101.6 ml LA A4 area: 23.1 cm2 RA A4 area: 17.6 cm2 Time Measurements MV dec time: 0.27 sec Doppler Measurements & Calculations MV E max mir: 26.3 cm/sec Lat Peak E' Mir: 5.1 cm/sec Med Peak E' Mir: 5.8 cm/sec MV A max mir: 85.3 cm/sec E/E' lat: 5.2 E/E' med: 4.5 MV E/A: 0.31 MV V2 max: 88.0 cm/sec Ao V2 max: 130.1 cm/sec LV V1 max: 115.6 cm/sec MV max P.1 mmHg Ao max P.8 mmHg LV V1 max P.3 mmHg MV V2 mean: 35.4 cm/sec MV mean P.69 mmHg MV V2 VTI: 12.6 cm PA V2 max: 89.1 cm/sec PA V2 mean: 67.4 cm/sec ECHO/Echo Complete W/ Contrast Interpretation Summary The estimated ejection fraction is 50 %. Hypokinesis of the basal inferolateral and basal lateral coulter No evidence for diastolic dysfunction. Ordering Physician: Stephan Aguirre Referring Physician: Shaka Dukes Chi Performed By: Kip Beavers RCS
[2023-10-09 22:23] LABS: Hemoglobin A1c 6.6 % (3.8-5.6)
[2023-10-09 22:24] LABS: Thyroid Stim Hormone (TSH) 2.85 uIU/mL (0.358-3.74)
[2023-10-09] MEDS: Labetalol (Prefilled) 20 MG/4 ML 5 MG IV (23:39)
[2023-10-10] VITALS (9 sets, daily range): BP systolic 115–194; BP diastolic 78–125; PULSE 64–81; RESP 14–18; TEMP 36.8–36.9; O2SAT 93–100; BMI 32.8
--- NOTE | 2023-10-10 | ED.RN ---
2130: NIH score of zero. Per Dr. Thomason neuro assessments to be done on the floor PCU. Dr. Thomason stated that since he is out of the 24 hour window patient is not a TNK candidate, no NIH's or Stroke alert called.
[2023-10-10] MEDS: Heparin Injection (Vial) 5,000 UNIT/ML VIAL 5000 UNIT SC (01:14)
[2023-10-10] MEDS: 0.9% Normal Saline (1000mL) 1,000 ML 50 ML IV (01:14)
[2023-10-10 04:17] LABS: Magnesium 1.8 mg/dL (1.6-2.6)
[2023-10-10 07:22] LABS: Absolute Lymphocyte Count 0.78 X10^3/uL (0.83-4.51); Absolute Neutrophil Count 12.1 X10^3/uL (2.0-7.7); Basophil# 0.03 X10^3/uL; Basophil% 0.2 % (0-1); Hematocrit 51.2 % (40-54); Hemoglobin 16.6 g/dL (13.0-16.5); Lymphocyte # 0.78 X10^3/ul (0.83-4.51); Lymphocyte % 5.7 % (19-41); Mean Corp Hgb Conc 32.4 g/dL (32-36); Mean Corpuscular Hgb 31.3 pg (27.0-32.0); Mean Corpuscular Volume 96.4 fL (80-94); Mean Platelet Vol. 10.7 fl (6.2-12.0); Monocyte# 0.72 X10^3/uL; Monocyte% 5.3 % (0-10); NRBC Flagged by Analyzer 0 % (0-5); Neutrophil # 12.07 X10^3/uL (2.7-7.7); Neutrophil % 88.3 % (47-70); Platelet Count 321 K/mm3 (150-450); RBC Distribution Width CV 14.5 % (11.6-14.6); RBC Distribution Width SD 51.8 fl (35.1-43.9); Red Blood Count 5.31 M/mm3 (4.6-6.2); White Blood Count 13.7 K/mm3 (4.4-11.0)
[2023-10-10 08:30] LABS: Cholesterol 217 mg/dL (200); High Density Lipoprotein 47 mg/dL; Triglycerides 204 mg/dL; Very Low Density Lipoprotein 41 mg/dL (5-40)
[2023-10-10 08:42] LABS: ALB/GLOB Ratio 0.8 RATIO (0.9-2.4); AST(SGOT) 22 U/L (15-37); Alanine Aminotransfer ALT/SGPT 36 U/L (16-61); Albumin, Serum 3.6 g/dL (3.2-5.0); Alkaline Phosphatase 90 U/L (45-117); Anion Gap 7 (5-15); BUN 25 mg/dL (7-18); BUN/Creat Ratio 13.9 RATIO (10-20); Calcium,Total 9.2 mg/dL (8.5-10.1); Chloride 109 mmol/L (98-107); EST Glomerular Filtration Rate 41 mL/min (>60); Est Glom Filt Rate - Afr Amer 49 mL/min (>60); Estimated Creatinine Clearance 50.74 ml/min; Globulin 4.3 g/dL (2.2-4.2); Glucose 133 mg/dL (74-106); Potassium 4.5 mmol/L (3.5-5.1); Protein, Total 7.9 g/dL (6.4-8.2); Sodium Level 140 mmol/L (136-145)
[2023-10-10] MEDS: Clopidogrel Bisulfate 75 MG Tablet PO (09:00)
[2023-10-10] MEDS: Meclizine HCl 25 MG Tablet PO (09:00)
--- NOTE | 2023-10-10 09:00 | MRI_ITS ---
We are attempting to reach an attending provider to discuss findings. An addendum with communication details will be sent when the communication is complete. STUDY: MRI BRAIN WITHOUT CONTRAST REASON FOR EXAM: Male, 63 years old. Left cerebellar CVA suggested on CT. TECHNIQUE: Standardized multiplanar fat and water weighted pulse sequences were obtained. COMPARISON: Head CT dated October 09, 2023 FINDINGS: There is acute and significant infarction of the mid to lower aspects of the cerebellum from anterior to posterior. There are no infarcts in the cerebral hemispheres. There is mild cerebral atrophy with widening of the extra-axial spaces and ventricular dilatation. There are a limited number of small white matter hyperintensities, distributed throughout the deep white matter tracts of the cerebral hemispheres, consistent with mild chronic white matter ischemic changes. Normal T2* images of the brain without demonstrated susceptibility artifact. There is no demonstrated hemosiderin stain. Normal bilateral basal ganglia. Normal thalami. There is no extra-axial fluid accumulation. Normal flow voids within the major intracranial circulation suggesting patency by spin echo criteria. Normal sella turcica, pituitary gland, infundibular stalk, optic chiasm and hypothalamus. Normal tectal plate and pineal gland. Normal midbrain, arturo and medulla. Normal cerebellum. Normal basal cisterns. Normal bilateral temporal bones. Normal bilateral internal auditory canals. No demonstrated orbital abnormality, within the constraints of a routine brain study. Normal visualized paranasal sinuses. Normal calvarium and skull base. Normal visualized soft tissue structures. Normal visualized upper cervical spine. MRI/Brain without Contrast IMPRESSION: 1. Acute or significant infarction of the left cerebellar lobe, likely due to thrombosis and some degree of occlusion of the left posterior inferior cerebellar artery Electronically Signed: Kilo Figueroa MD at 13:54 EDT ,
[2023-10-10] MEDS: 0.9% Saline Lock 10 ML Syringe IV (09:52)
[2023-10-10] MEDS: Ondansetron 4 MG/2 ML Vial 8 MG IV (09:52)
[2023-10-10] MEDS: Pantoprazole Sodium 40 MG in 0.9% Normal Saline (100mL MB+) 100 ML 330 MG IV (09:53)
[2023-10-10] MEDS: ALPRAZolam 0.5 MG Tablet 2 MG PO (11:16)
--- NOTE | 2023-10-10 14:44 | CASEMGMT ---
Tertiary facilities in-network with patient's insurance: , [facility], [facility], [facility], [facility], [place], [place], [facility], [facility]
[2023-10-10] MEDS: Labetalol (Prefilled) 20 MG/4 ML IV (15:16)
--- NOTE | 2023-10-10 15:48 | CON.PCM.NE_ITS ---
Assessment and Plan: Neuro Assessment/Plan JACQUELINE NIEVES Jr. is a 63 M with a past medical history of HTN, being evaluated by Teleneurology for acute stroke Pt with 4 days history of progressive nausea vomiting, CT head showed acute cerebellar stroke MRI showed large stroke with no mass effect. CTA showed a complete occlusion of the left posterior inferior cerebellar artery just beyond the origin. Plan: pt has a large cerebellar stroke day 3-4 post symptoms there is no significant edema or mass effect on the CT head however I think it would be better to transfer the pt to a facility with neurosurgical service in case of worsenig edema and need for emergent sub-occipital craniectomy. stroke etiology is not clear yet but likely cardio embolic TTE pending hba1c lipid panel cont home plavix cont lipitor case was discussed with in [place] and the [facility] attending in [facility]. HPI Consult Data Date of Consult: 10/10/23 HPI Narrative HPI Narrative: JACQUELINE NIEVES, is a 63 M with hx of HTN, HLD who presents with nausea vomiting and dizziness. as per chart and family the symptoms started 2 days prior to the admission. he has acute onset dizziness n/v. he reportedly presented to the ED on 10/07 and he was discharged home after a normal Ct head. his symptoms cont to worsen thus he went to the ED again. CT head showed left cerebellar stroke. he was admitted for stroke work up [facility] Medical History BPH (benign prostatic hyperplasia) Depression GERD (gastroesophageal reflux disease) Heart attack HTN (hypertension) Hypercholesteremia Hyperlipidemia Hypothyroidism Home Medications atorvastatin 80 mg tablet 80 mg PO DAILY 02/23/21 [History Last Taken Unknown] clopidogrel 75 mg tablet 75 mg PO DAILY 02/23/21 [History Last Taken Unknown] omeprazole 40 mg capsule,delayed release 40 mg PO DAILY 02/23/21 [History Last Taken Unknown] bumetanide 1 mg tablet 1 mg PO DAILY 03/29/23 [History Last Taken Unknown] levothyroxine 50 mcg tablet 100 mcg PO DAILY 03/29/23 [History Last Taken Unknown] lisinopril 30 mg tablet 30 mg PO DAILY 10/08/23 [History Last Taken Unknown] Allergy/AdvReac Type Severity Reaction Status Date / Time No Known Allergies Allergy Verified 10/09/23 17:59 Family History Father Prostate cancer Mother Throat cancer Brother Down syndrome Surgical History Hx of tonsillectomy Stented coronary artery Social History Smoking Status: Current every day smoker tobacco type: cigarettes substance use type: former substance user Vital Signs Vital Signs Vital Signs: 10/09/23 18:00 10/09/23 18:07 10/09/23 19:00 Temperature 97.4 F L Temperature Source Oral Pulse Rate 74 72 55 L Respiratory Rate 26 H 20 H 18 Respiratory Effort Respiratory Depth Respiratory Pattern Blood Pressure 185/82 H 127/60 H Blood Pressure Mean 116 82 Blood Pressure Source Blood Pressure Position Blood Pressure Location Pulse Ox 86 92 94 Oxygen Delivery Method Room Air Nasal Cannula Nasal Cannula Oxygen Flow Rate (L/min) 3 2 10/09/23 19:22 10/09/23 20:00 10/09/23 21:15 Temperature Temperature Source Pulse Rate 65 114 H Respiratory Rate 18 20 H Respiratory Effort Normal Respiratory Depth Respiratory Pattern Normal Blood Pressure 171/105 H 140/101 H Blood Pressure Mean 127 114 Blood Pressure Source Blood Pressure Position Blood Pressure Location Pulse Ox 90 97 Oxygen Delivery Method Nasal Cannula Nasal Cannula Oxygen Flow Rate (L/min) 2 4 10/09/23 22:00 10/09/23 23:00 10/09/23 23:31 Temperature 97.4 F L Temperature Source Pulse Rate 59 L 60 72 Respiratory Rate 17 15 21 H Respiratory Effort Respiratory Depth Respiratory Pattern Blood Pressure 182/106 H 190/114 H 226/116 H Blood Pressure Mean 131 139 152 Blood Pressure Source Blood Pressure Position Blood Pressure Location Pulse Ox 94 95 96 Oxygen Delivery Method Nasal Cannula Nasal Cannula Oxygen Flow Rate (L/min) 10/10/23 00:39 10/10/23 02:55 10/10/23 04:00 Temperature 98.2 F 98.5 F Temperature Source Oral Oral Pulse Rate 64 65 Respiratory Rate 18 15 Respiratory Effort Normal Non-Labored Respiratory Depth Normal Respiratory Pattern Normal Blood Pressure 185/119 H 192/125 H Blood Pressure Mean 141 147 Blood Pressure Source Monitor Monitor Blood Pressure Position Semi-Fowlers Semi-Fowlers Blood Pressure Location Left Arm Left Arm Pulse Ox 100 95 Oxygen Delivery Method Nasal Cannula Nasal Cannula Room Air Oxygen Flow Rate (L/min) 4 4 10/10/23 07:37 10/10/23 07:35 10/10/23 07:46 Temperature 98.2 F Temperature Source Oral Pulse Rate 77 Respiratory Rate 16 Respiratory Effort Non-Labored Respiratory Depth Normal Respiratory Pattern Normal Blood Pressure 188/107 H Blood Pressure Mean 134 Blood Pressure Source Monitor Blood Pressure Position Sitting Blood Pressure Location Right Arm Pulse Ox 93 95 Oxygen Delivery Method Room Air Room Air Room Air Oxygen Flow Rate (L/min) 10/10/23 10:00 10/10/23 13:00 10/10/23 14:00 Temperature 98.2 F 98.2 F Temperature Source Oral Oral Pulse Rate 75 81 81 Respiratory Rate 18 14 14 Respiratory Effort Respiratory Depth Respiratory Pattern Blood Pressure 115/78 194/122 H 194/122 H Blood Pressure Mean 90 146 146 Blood Pressure Source Monitor Monitor Monitor Blood Pressure Position Semi-Fowlers Semi-Fowlers Semi-Fowlers Blood Pressure Location Left Arm Right Arm Right Arm Pulse Ox 93 94 94 Oxygen Delivery Method Room Air Nasal Cannula Nasal Cannula Oxygen Flow Rate (L/min) 2 2 Weight Weight: 104 kg Body Mass Index (BMI) 32.8 EEG Results Procedure Details EEG Procedure Details: JACQUELINE NIEVES Jr. is a 63 year old M with a past medical history of , who presents for evaluation of Electroencephalogram on DATE at TIME NIHSS NIHSS Nursing Documentation NIHSS Nursing Documentation: NIH Stroke Scale Start: 10/09/23 22:37 Freq: Status: Discharge Protocol: Activity Type Activity Date Activity User E-sign Co-sign Detail Recorded Client Recorded Date Recorded By Document 10/09/23 21:30 EM Desktop 10/09/23 22:37 EM 10/09/23 21:30 NIH Stroke Scale [NIHSS] A score of 0 is normal or asymptomatic . Total possible score is 42. Inpatient: RN or Physician to activate a stroke alert for onset of new stroke symptoms or with NIHSS increase >/= 3 points. Following change in neurological status, NIHSS will be performed per physician order or more frequently PRN. -1a. Level of Consciousness Alert; keenly responsive -1b. LOC Questions Answers BOTH questions correctly. -1c. LOC Commands Performs both tasks correctly . -2. Best Gaze Normal -3. Visual No visual loss -4. Facial Palsy Normal symmetrical movements -5a. Left Arm No drift; arm holds 90 (or 45 ) degrees for full 10 seconds -5b. Right Arm No drift; arm holds 90 (or 45 ) degrees for full 10 seconds -6a. Left Leg No drift; leg holds 30-degree position for full 5 seconds -6b. Right Leg No drift; leg holds 30-degree position for full 5 seconds -7. Limb Ataxia Absent -8. Sensory Normal; no sensory loss -9. Best Language No aphasia; normal -10. Dysarthria Normal -11. Extinction and Inattention No abnormality -Total 0 Query Text:A score of 0 is normal or asymptomatic. Total possible score is 42 . ED: Notify Physician for NIHSS increase by > / = 3 points. Inpatient: RN or Physician to activate a stroke alert for NIHSS increase of > / = 3 points. NIHSS: Ischemic Stroke/TIA Start: 10/10/23 00:11 Text: For PCU Patients: NIH and Neuro Check every 4 Status: Active hours, PRN and with change in RN caregiver. Freq: [id number] Protocol: Activity Type Activity Date Activity User E-sign Co-sign Detail Recorded Client Recorded Date Recorded By Document 10/10/23 14:00 [facility] [id number] 10/10/23 15:03 [facility] 10/10/23 14:00 -1a. Level of Consciousness Alert; keenly responsive -1b. LOC Questions Answers BOTH questions correctly. -1c. LOC Commands Performs both tasks correctly . -2. Best Gaze Normal -3. Visual No visual loss -4. Facial Palsy Normal symmetrical movements -5a. Left Arm No drift; arm holds 90 (or 45 ) degrees for full 10 seconds -5b. Right Arm No drift; arm holds 90 (or 45 ) degrees for full 10 seconds -6a. Left Leg No drift; leg holds 30-degree position for full 5 seconds -6b. Right Leg No drift; leg holds 30-degree position for full 5 seconds -7. Limb Ataxia Absent -8. Sensory Normal; no sensory loss -9. Best Language No aphasia; normal -10. Dysarthria Mild-to- moderate dysarthria; -11. Extinction and Inattention No abnormality -Total 1 Query Text:A score of 0 is normal or asymptomatic. Total possible score is 42 . ED: Notify Physician for NIHSS increase by > / = 3 points. Inpatient: RN or Physician to activate a stroke alert for NIHSS increase of > / = 3 points. Coma Scale [Assess] -Eye Opening Spontaneous -Motor Obeys Commands -Verbal Oriented [Total] -Coma Scale Total 15 Physical Exam Neuro Neuro Narrative: exam was limited as he was drowsy (given a dose of benzo for the MRI) but he wo ke up to repetetive voice stimulus, attends and went back to sleep, biderctional nystagums no facial droop, no drift could not asses FTN gait deferred Lab / Micro Data 10/10/23 06:55 10/10/23 06:55 Labs: Laboratory Results - last 24 hr 10/09/23 18:07: WBC 15.1 H, RBC 5.07, Hgb 16.1, Hct 48.9, MCV 96.4 H, MCH 31.8, MCHC 32.9, RDW Std Deviation 50.6 H, RDW Coeff of [place] 14.4, Plt Count 318, MPV 10.8, D-Dimer Quant (PE/DVT) 0.49, Sodium 140, Potassium 3.5, Chloride 108 H, Carbon Dioxide 25.0, Anion Gap 7, BUN 21 H, Creatinine 1.90 H, Estim Creat Clear Calc 48.07, Est GFR (MDRD) Af Amer 46 L, Est GFR (MDRD) Non-Af 38 L, BUN/Creatinine Ratio 11.1, Glucose 242 H, Hemoglobin A1c 6.6 H, Calcium 9.3, Phosphorus 5.0 H, Magnesium 1.8, Total Bilirubin 0.70, AST 25, ALT 36, Alkaline Phosphatase 92, Troponin I High Sens 27, Total Protein 8.1, Albumin 3.7, Globulin 4.4 H, Albumin/Globulin Ratio 0.8 L, Lipase 27, TSH 2.85 10/09/23 18:50: Urine Color Yellow, Urine Clarity Clear, Urine pH 7.0, Ur Specific [place] 1.010, Urine Protein 500 H, Urine Glucose (UA) 250 H, Urine Ketones Negative, Urine Occult Blood 25 H, Urine Nitrite Negative, Urine Bilirubin Negative, Urine Urobilinogen Normal, Ur Leukocyte Esterase Negative, Urine RBC 0-5 SEEN, Urine WBC 0 SEEN, Ur Squamous Epith Cells 0 SEEN, Urine Bacteria 0 SEEN, Urine Mucus 0 SEEN 10/10/23 06:55: WBC 13.7 H, RBC 5.31, Hgb 16.6 H, Hct 51.2, MCV 96.4 H, MCH 31.3, MCHC 32.4, RDW Std Deviation 51.8 H, RDW Coeff of [place] 14.5, Plt Count 321, MPV 10.7, Immature Gran % (Auto) 0.500, Neut % (Auto) 88.3 H, Lymph % (Auto) 5.7 L, [place] % (Auto) 5.3, Eos % (Auto) 0.0, Baso % (Auto) 0.2, Absolute Neuts (auto) 12.1 H, Absolute Lymphs (auto) 0.78 L, Nucleated RBC % 0, Sodium 140, Potassium 4.5, Chloride 109 H, Carbon Dioxide 24.0, Anion Gap 7, BUN 25 H, Creatinine 1.80 H, Estim Creat Clear Calc 50.74, Est GFR (MDRD) Af Amer 49 L, Est GFR (MDRD) Non-Af 41 L, BUN/Creatinine Ratio 13.9, Glucose 133 H, Calcium 9.2, Total Bilirubin 0.50, AST 22, ALT 36, Alkaline Phosphatase 90, Total Protein 7.9, Albumin 3.6, Globulin 4.3 H, Albumin/Globulin Ratio 0.8 L, Triglycerides 204 H, Cholesterol 217 H, LDL Cholesterol 129, VLDL Cholesterol 41 H, HDL Cholesterol 47 Imaging Radiology Impression Brain CT 10/09/23 18:09 IMPRESSION: Chronic involutional changes of the brain. 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 Electronically Signed: Fabio Chavez MD at 20:11 EDT , Chest X-Ray 10/09/23 19:12 IMPRESSION: Lower lung atelectasis. Electronically Signed: Fabio Chavez MD at 20:21 EDT , Head/Neck CTA 10/09/23 21:37 IMPRESSION: Left posterior inferior cerebellar artery occlusion. Plaque with mild narrowing of the internal carotid arteries. No hemodynamically significant internal carotid artery stenosis. Electronically Signed: Fabio Chavez MD at 23:09 EDT , ADDENDUM: 10/09/23 2320 IMPRESSION: Left posterior inferior cerebellar artery occlusion. Plaque with mild narrowing of the internal carotid arteries. No hemodynamically significant internal carotid artery stenosis. N.B. : FLAKITA Worthington RN, confirmed on 10/09/2023 23:13:38 (ET) that the healthcare facility has received the radiology report. Electronically Signed: Fabio Chavez MD at 23:09 EDT , Echocardiogram 10/09/23 21:42 Interpretation Summary The estimated ejection fraction is 50 %. Hypokinesis of the basal inferolateral and basal lateral coulter No evidence for diastolic dysfunction. Ordering Physician: Stephan Aguirre Referring Physician: Shaka Dukes Chi Performed By: Kip Beavers RCS Brain MRI 10/10/23 09:00 IMPRESSION: 1. Acute or significant infarction of the left cerebellar lobe, likely due to thrombosis and some degree of occlusion of the left posterior inferior cerebellar artery Electronically Signed: Kilo Figueroa MD at 13:54 EDT , ADDENDUM: 10/10/23 1405 IMPRESSION: 1. Acute or significant infarction of the left cerebellar lobe, likely due to thrombosis and some degree of occlusion of the left posterior inferior cerebellar artery N.B. : The above Results were Read Back by Kilo Figueroa MD to Kristina Cummings RN, and understanding confirmed on 10/10/2023 13:58:38 (ET). Electronically Signed: Kilo Figueroa MD at 13:54 EDT Reading Location ID and State: [facility] / [place] , Service support , Active Medications Active Medications Active Medications: Current Medications Generic Name Dose Route Start Last Admin Trade Name Freq PRN Reason Stop Dose Admin Acetaminophen 650 mg 10/10/23 00:11 Acetaminophen 325 Mg Tablet PO Q4H PRN PRN Pain 1-10 Or Fever>99.6 Atorvastatin Calcium 80 mg 10/10/23 22:00 Atorvastatin Calcium 80 Mg Tablet PO 2200 KAYLEE Clopidogrel Bisulfate 75 mg 10/10/23 10:00 10/10/23 09:00 Clopidogrel Bisulfate 75 Mg Tablet PO 75 mg DAILY KAYLEE Administration Heparin Sodium (Porcine) 5,000 unit 10/10/23 00:11 10/10/23 09:58 Heparin Injection (Vial) 5,000 Unit/Ml Vial SC Not Given BID KAYLEE Pantoprazole Sodium 40 mg/ 110 mls @ 330 mls/hr 10/10/23 10:00 10/10/23 10:16 Sodium Chloride IV Infused DAILY KAYLEE Infusion Sodium Chloride 1,000 mls @ 50 mls/hr 10/10/23 00:11 10/10/23 01:14 IV 50 mls/hr .Q20H KAYLEE Administration Sodium Chloride 250 mls @ 15 mls/hr 10/10/23 00:18 IV .[id number] PRN Additional IVPB Infusion Sodium Chloride 250 mls @ 15 mls/hr 10/10/23 00:18 IV .[id number] PRN Saline Flush Labetalol HCl 10 - 20 mg 10/10/23 00:11 10/10/23 15:16 Labetalol (Prefilled) 20 Mg/4 Ml IV 10/11/23 00:11 10 mg Q10M PRN PRN Administration maintain BP parameters with HR >/=60 Levothyroxine Sodium 100 mcg 10/10/23 06:00 10/10/23 05:34 Levothyroxine 100 Mcg Tablet PO Not Given 0600 [facility] Meclizine HCl 25 mg 10/10/23 03:30 10/10/23 09:00 Meclizine Hcl 25 Mg Tablet PO 25 mg TID PRN PRN Administration DIZZINESS Ondansetron HCl 8 mg 10/10/23 09:33 10/10/23 09:52 Ondansetron 4 Mg/2 Ml Vial IV 8 mg Q6H PRN PRN Administration NAUSEA/VOMITING Sodium Chloride 10 - 40 ml 10/10/23 00:18 10/10/23 09:52 0.9% Saline Lock 10 Ml Syringe IV 20 ml UD PRN Administration SALINE FLUSH
--- NOTE | 2023-10-12 15:06 | DS.PCM_ITS ---
Providers Date of Admission: 10/09/23 Date of Discharge: 10/10/23 Primary Care Physician: Dr. Shaka Dukes MD Consultations 10/09/23 21:13 Consult: Tele-Neurology Routine Consulting Provider: [facility] Reason for Consult: possible cerebellar stroke EMERGENT Consult: Yes MD Notified: Yes Date Notified: 10/09/23 Time Notified: 21:15 Method of Notification: ED Physician Initiated Nursing Unit Staff Notify [facility] of Tele-Neurology Consult: Yes 10/09/23 21:15 Consult: Tele-Neurology Routine Consulting Provider: [facility] Reason for Consult: stroke EMERGENT Consult: No MD Notified: Yes Date Notified: 10/09/23 Time Notified: 21:15 Method of Notification: ED Physician Initiated Nursing Unit Staff Notify [facility] of Tele-Neurology Consult: Yes 10/10/23 00:11 Consult: Tele-Neurology Routine Consulting Provider: [facility] Reason for Consult: Acute Ischemic Stroke/TIA EMERGENT Consult: No MD Notified: Yes Date Notified: 10/09/23 Time Notified: 21:37 Method of Notification: ED Physician Initiated Comments:: ER physician to notify. Nursing Unit Staff Notify [facility] of Tele-Neurology Consult: Yes Reason For Visit: LEFT CEREBELLAR CVA WITH PERSISTENT VERTIGO AND Diagnosis Discharge Diagnosis (1) Cerebellar stroke: Status: Acute Code(s): I63.9 - Cerebral infarction, unspecified (2) Nausea and vomiting: Status: Acute Code(s): R11.2 - Nausea with vomiting, unspecified Qualifiers: Vomiting type: bilious vomiting Qualified Code(s): R11.14 - Bilious vomiting (3) Dizziness: Status: Acute Code(s): R42 - Dizziness and giddiness (4) Urinary retention: Status: Acute Code(s): R33.9 - Retention of urine, unspecified Plan 1. Acute left cerebellar infarction #2 essential hypertension #3 hyperlipidemia #4 uncontrolled nausea and vomiting secondary to #1 #5 hypothyroidism Medications at Discharge Home Medications atorvastatin 80 mg tablet 80 mg PO DAILY 02/23/21 clopidogrel 75 mg tablet 75 mg PO DAILY 02/23/21 omeprazole 40 mg capsule,delayed release 40 mg PO DAILY 02/23/21 bumetanide 1 mg tablet 1 mg PO DAILY 03/29/23 levothyroxine 50 mcg tablet 100 mcg PO DAILY 03/29/23 lisinopril 30 mg tablet 30 mg PO DAILY 10/08/23 Hospital Course Operations None Procedures 2-D Echocardiogram Summary of Care Provided Minutes Spent on Discharge: 32 Hospital Course: 63-year-old white male presented to the emergency room at [facility] with a complaint of 2 days of dizziness, nausea, and vomiting. Workup in the emergency room revealed a leukocytosis of 15.1, patient had a CT scan of the brain done the day before when he had been seen in the emergency room for complaints of dizziness, at that time he was discharged from the ER after a workup which included a CT of the brain which showed chronic involutional changes. Patient had a repeat CT of the brain which showed changes concerning for possible left cerebellar stroke, teleneurology was contacted and recommended a CTA of the head and neck, this showed an acute occlusion in the posterior inferior cerebral artery. This was discussed with teleneurology and the patient was felt not to be a tenecteplase candidate according to the teleneurologist. It was recommended the patient continue Plavix but aspirin was not recommended. Patient was admitted to PCU, NIH scores were monitored and the patient had an MRI of the brain performed which showed an acute infarction of the left cerebellar lobe likely due to thrombosis and some degree of occlusion of the left posterior inferior cerebellar artery. Teleneurology reviewed this and recommended the patient be transferred to [facility] in case he developed edema. A bed was [facility] at [facility] [place] the [place] and he was transferred out on 10/10/2023. On that date, patient was seen and examined: On examination he appeared in good health and spirits. Vital signs as documented. Skin warm and dry and without overt rashes. Neck without JVD, neck was supple, trachea midline, thyroid was normal. Lungs clear bilaterally, normal air movement was noted. Heart exam notable for regular rhythm, normal sounds and absence of murmurs, rubs or gallops. Abdomen unremarkable and without evidence of organomegaly, masses, or abdominal aortic enlargement. Bowel sounds are present, abdomen is not distended. Extremities nonedematous, no cyanosis was noted, no clubbing was noted. Neuro: Cranial nerves II through XII are grossly intact, no focal motor deficits were noted, sensation to light touch and pinprick intact, motor exam 5/5 throughout. Psych: Patient is alert and oriented x3, he does not appear a nxious or depressed, he does not appear agitated. Patient appeared stable for transport to [facility] on 10/10/2023 Weight / BMI Weight Weight: 104 kg Body Mass Index (BMI) 32.8 ABG / Lab / Microbiology Data 10/10/23 06:55 10/10/23 06:55 Meaningful Use Info Meaningful Use Diagnoses (Choose all that apply): Ischemic CVA CVA Therapy Assessed for PT,OT and/or ST?: Yes Ischemic Stroke Antithrombotic order at d/c?: No Reason antithrombotic not ordered: Treatment not Indicated Dx of Atrial fib/flutter?: No Anticoagulant at discharge?: No Reason anticoagulant not ordered: Treatment not Indicated Statins at discharge?: Yes Primary Dx Acute Ischemic CVA?: Yes IV thrombolytic ordered during stay?: No Reason IV thrombolytic not ordered: Treatment not Indicated Discharge Plan Admission Admit Date/Time: 10/09/23 21:36 Attending Provider: Esequiel Reilly Primary Care Provider: Shaka Dukes Chi Consulting Providers: Yessica Parker; Ora Roberts; Logan Epps; Miguel Alvarez; Tan Winchester; Bernabe Reyes; Chidi Robins; Patrick Herbert; Jennifer Gamez; Brian Isbell; Kristina Leonard; Isela Kwok; Luis Howell; Christen Cash; Liza Cadet; Iraj Roman; Bhupendra Li; Barb David; Alexandria Waller; Stephan Aguirre Discharge Orders/Prescriptions Prescriptions: No Action levothyroxine 50 mcg tablet 100 mcg PO DAILY bumetanide 1 mg tablet 1 mg PO DAILY Hold Instructions: MD Ordered atorvastatin 80 mg Tablet 80 mg PO DAILY clopidogrel 75 mg Tablet 75 mg PO DAILY omeprazole 40 mg Capsule,Delayed Release(Dr/Ec) 40 mg PO DAILY lisinopril 30 mg tablet 30 mg PO DAILY Referrals / Follow Up: Shaka Dukes Chi, MD [Primary Care Provider] - Disposition Disposition (needs filled in before D/C Order can be placed): Acute Care Hospital Charges/Coding Visit Charges Inpatient E&M: 21692 Disch Hosp >30min
== END 2023-10-10 20:00 | disposition short-term general hospital (02) | DRG 45 ==
LOC: ED 21:26 → PCU 21:49
PROVIDERS: Admitting Provider Internal Medicine; Emergency Provider Emergency Medicine; PCP Family Medicine Geriatric Medicine; Visit Provider Internal Medicine
DX: I63.442 Cerebral infarction due to embolism of left cerebellar artery (principal); E03.9 Hypothyroidism, unspecified; N18.30 Chronic kidney disease, stage 3 unspecified; I12.9 Hypertensive chronic kidney disease with stage 1 through stage 4 chronic kidney disease, or unspecified chronic kidney disease; F32.A Depression, unspecified; K21.9 Gastro-esophageal reflux disease without esophagitis; E78.00 Pure hypercholesterolemia, unspecified; I25.10 Atherosclerotic heart disease of native coronary artery without angina pectoris; I25.2 Old myocardial infarction; J98.11 Atelectasis; E66.9 Obesity, unspecified; R29.700 NIHSS score 0; R09.02 Hypoxemia; R73.9 Hyperglycemia, unspecified; N40.1 Benign prostatic hyperplasia with lower urinary tract symptoms; R33.8 Other retention of urine; Z68.32 Body mass index [BMI] 32.0-32.9, adult; Z79.02 Long term (current) use of antithrombotics/antiplatelets; Z79.899 Other long term (current) drug therapy; Z95.5 Presence of coronary angioplasty implant and graft; Z87.891 Personal history of nicotine dependence
CPT/HCPCS: 36415; 70450; 70496; 70498; 70551; 71045; 80053; 80061; 81001; 83036; 83690; 83735; 84100; 84443; 84484; 85025; 85027; 85379; 93005; 93306; 94762; 99285; J7030; Q9957; Q9967; A4216; C8929; J2405

== ENCOUNTER → 2024-04-21 | Outpatient (CLI) | payer MEDICAID, SELFPAY ==
[2024-04-21 16:34] LABS: Absolute Lymphocyte Count 1.46 X10^3/uL (0.83-4.51); Absolute Neutrophil Count 4.3 X10^3/uL (2.0-7.7); Basophil# 0.06 X10^3/uL; Basophil% 0.9 % (0-1); Eosinophil# 0.12 X10^3/uL; Eosinophils% 1.8 % (0-5); Hematocrit 42.2 % (40-54); Hemoglobin 14.4 g/dL (13.0-16.5); Lymphocyte # 1.46 X10^3/ul (0.83-4.51); Lymphocyte % 21.8 % (19-41); Mean Corp Hgb Conc 34.1 g/dL (32-36); Mean Corpuscular Hgb 32.1 pg (27.0-32.0); Mean Corpuscular Volume 94.2 fL (80-94); Monocyte# 0.75 X10^3/uL; Monocyte% 11.2 % (0-10); NRBC Flagged by Analyzer 0 % (0-5); Neutrophil # 4.25 X10^3/uL (2.7-7.7); Neutrophil % 63.6 % (47-70); Platelet Count 283 K/mm3 (150-450); RBC Distribution Width CV 14.9 % (11.6-14.6); RBC Distribution Width SD 51.4 fl (35.1-43.9); Red Blood Count 4.48 M/mm3 (4.6-6.2); White Blood Count 6.7 K/mm3 (4.4-11.0)
[2024-04-21 17:06] LABS: ALB/GLOB Ratio 0.8 RATIO (0.9-2.4); AST(SGOT) 13 U/L (15-37); Alanine Aminotransfer ALT/SGPT 21 U/L (16-61); Albumin, Serum 3.4 g/dL (3.2-5.0); Alkaline Phosphatase 100 U/L (45-117); Anion Gap 5 (5-15); BUN 30 mg/dL (7-18); BUN/Creat Ratio 16.8 RATIO (10-20); Calcium,Total 9.8 mg/dL (8.5-10.1); Chloride 107 mmol/L (98-107); Cholesterol 153 mg/dL (200); Creatinine, Serum 1.79 mg/dL (0.70-1.30); EST Glomerular Filtration Rate 41 mL/min (>60); Est Glom Filt Rate - Afr Amer 49 mL/min (>60); Globulin 4.3 g/dL (2.2-4.2); Glucose 129 mg/dL (74-106); High Density Lipoprotein 41 mg/dL; PSA,Total - Annual Screen 1.24 ng/mL (0.00-4.00); Potassium 4.2 mmol/L (3.5-5.1); Protein, Total 7.7 g/dL (6.4-8.2); Sodium Level 138 mmol/L (136-145); Triglycerides 263 mg/dL; Very Low Density Lipoprotein 53 mg/dL (5-40)
== END | disposition home or self-care (01) ==
LOC: LAB 15:42
PROVIDERS: PCP Family Medicine Geriatric Medicine; Referring Provider Family Medicine Geriatric Medicine; Visit Provider Family Medicine Geriatric Medicine
DX: Z12.5 Encounter for screening for malignant neoplasm of prostate (principal); I10 Essential (primary) hypertension; E78.5 Hyperlipidemia, unspecified
CPT/HCPCS: 84153; 36415; 80053; 80061; 84443; 85025; G0103

== ENCOUNTER 2024-06-16 15:50 | Outpatient (RCR) | payer MEDICAID, SELFPAY ==
--- NOTE | 2024-06-16 17:09 | HP.PTEVAL_ITS ---
Patient's Visit Information Visit Information Visit Information: JACQUELINE NIEVES Jr. is a 64 year old M referred to Physical Therapy by Dr. Shaka Dukes MD with a diagnosis of Dizzyness. Date of Evaluation: 06/16/24 Physical Therapist: Hasmukh Bah, DPT, OCS, CSCS Visit Plan Frequency: 1x/Week Duration: 4-6 Weeks Plan: weekly(pt did not want 2x/week) for adaptation and habituation adn balance ex progression of HEP. IE: HEP is VOR H 60 sec, head turns 10x, head nods 10x all 6x/day and use wh walker to get around as safety allows instead of WC with big steps. Next session progress to add standing balance ex with head movements and step and recover Subjective Subjective: Had stroke 5-6 months ago and was good prior to that. Went down to [facility]. [place] found him lying on the floor. Busted up face and taken by 911 and had diagnostics and found a stroke. Legs were weak although did not have unilateral syomptoms face or body, Was asleep for a weak. Legs weak and could not stand. Was dizzy upon waking and very dizzy spinning. currently Ok when sitting, if moves head too fast then will get upset and dysequilibrium. It has been this way since the stroke. Had crystals treated and helped alot 3-4 months ago. Better after positional treatment with nausea and vomit. Will have a ppointment with inner health technician hearing. Current spinning lasts short if stays still after moving. Sleep is not great. Lies in bed without dizzyness but can get dizzy with rolling. Employed: retired. 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 No regular exercise prior. Lives alone: one story without steps except lip to get in. Can get around in there but uses WC. Bathroom self, dresses self but sitting alot. Has nurse that does laundry and drying and dishes, no longer needs help in shower. Cannot look up in shower. Goes to store but uses grocery cart Some days better than others. skilled nursing for first 3 months, then home. Pain BLANCAS: Pain Intensity (Out of 10): 0 Pain Intensity Range: 0 and 2 Comment: worse on feet and with dizzy Objective Objective: Walks unsteady back to PT reaching for items. Got wh walker which he has at home and does much better but hesitant. VC needed to take big steps as he tends to avoid weight shift and head movements. Sit to stand and back I. - B hallpike saul - roll test Oculomotor: no nystagmus with gaze or head shake - ocular tilt - skew eye deviation - head thrust normal pursuit and saccades slow VOr with mild transinet symptoms for 30 sec. H and V. head turns give moderate quick symptoms but scared to do it. Balance/Special Test Scores Functional Gait Assessment Score: 13 % Disability: 56.6700 Dizziness Score: 100 Goals Goal 1:: Dizzyness and unsteadyness feels 75% better overall. Goal Time Frame: 4-6 Weeks Goal 2:: walk without AD I into adn out of PT without hesitancy. Goal Time Frame: 4-6 Weeks Goal 3:: FGA score 25/30 Goal Time Frame: 4-6 Weeks Goal 4:: DHI score 10 or better Goal Time Frame: 4-6 Weeks Goal 5:: pt feel back to 90% of activity norms Goal Time Frame: 4-6 Weeks Rehabilitation Potential Physical Therapy Diagnosis: imbalance and dizzyness effecting functon. Rehabilitation Potential: Good Anticipated Interventions Text: Thank you for the opportunity to evaluate your patient. For Medicare and Medicare HMO plans, please review the plan of care and approve it. It will need to be FAXED BACK to us at [phone] for Medicare purposes. For Medicare only, by signing this I certify the plan of care. Please let me know if there are questions or concerns regarding this plan of care. Physician Signature: Date:
--- NOTE | 2024-10-06 13:17 | HP.PT.NRP ---
Patient Information Patient Information: JACQUELINE NIEVES Jr. was seen in my office for initial evaluation on 06/16/24. The following Plan of Care was established for this patient: POC Established Initial Frequency: 1x/Week Initial Duration: 4-6 Weeks Last Seen Last Seen: This patient was last seen in our office 06/16/25. Pertinent comments regarding their Physical therapy will appear below: Pt seen one visit of POC and then did not return. I called him in July when he stated he was very busy with his mom's health and would call when ready. It has been over 3 months at this point and I will discontinue him from my care. At this point I will be discontinuing this patient from physical therapy. I would be happy to see this patient again in the future if found appropriate by the physician. Thank you! Hasmukh Bah, DPT, OCS, CSCS Balance/Gait/Functional tests Balance/Special Test Scores Functional Gait Assessment Score: 13 % Disability: 56.6700 Dizziness Score: 100
== END 2024-06-16 19:00 | disposition home or self-care (01) ==
LOC: PT 15:50
PROVIDERS: PCP Family Medicine Geriatric Medicine; Referring Provider Family Medicine Geriatric Medicine; Visit Provider Family Medicine Geriatric Medicine
DX: R42 Dizziness and giddiness (principal)
CPT/HCPCS: 97110; 97163

== ENCOUNTER 2024-11-16 14:02 | Outpatient (CLI) | payer MEDICAID, SELFPAY ==
[2024-11-16 14:24] LABS: Absolute Lymphocyte Count 1.53 X10^3/uL (0.83-4.51); Absolute Neutrophil Count 4.9 X10^3/uL (2.0-7.7); Basophil# 0.07 X10^3/uL; Eosinophil# 0.06 X10^3/uL; Eosinophils% 0.8 % (0-5); Lymphocyte # 1.53 X10^3/ul (0.83-4.51); Lymphocyte % 21.5 % (19-41); Mean Corp Hgb Conc 34.1 g/dL (32-36); Mean Corpuscular Hgb 32.2 pg (27.0-32.0); Mean Corpuscular Volume 94.4 fL (80-94); Mean Platelet Vol. 10.2 fl (6.2-12.0); Monocyte# 0.55 X10^3/uL; Monocyte% 7.7 % (0-10); NRBC Flagged by Analyzer 0 % (0-5); Neutrophil # 4.86 X10^3/uL (2.7-7.7); Neutrophil % 68.6 % (47-70); Platelet Count 292 K/mm3 (150-450); RBC Distribution Width CV 14.6 % (11.6-14.6); RBC Distribution Width SD 50.5 fl (35.1-43.9); Red Blood Count 4.66 M/mm3 (4.6-6.2); White Blood Count 7.1 K/mm3 (4.4-11.0)
[2024-11-16 15:00] LABS: ALB/GLOB Ratio 1.3 RATIO (0.9-2.4); AST(SGOT) 19 U/L (<=37); Alanine Aminotransfer ALT/SGPT 25 U/L (<=46); Albumin, Serum 4.3 g/dL (3.4-4.8); Alkaline Phosphatase 105 U/L (40-129); Anion Gap 10 (5-15); BUN 25 mg/dL (4-19); BUN/Creat Ratio 13.4 RATIO (10-20); Calcium,Total 9.5 mg/dL (7.6-11.0); Carbon Dioxide 21.4 mmol/L (21.0-32.0); Chloride 106 mmol/L (98-108); Cholesterol 138 mg/dL (<=200); Creatinine, Serum 1.87 mg/dL (0.70-1.20); EST Glomerular Filtration Rate 40 (>60); Globulin 3.2 g/dL (2.2-4.2); Glucose 130 mg/dL (70-99); High Density Lipoprotein 34 mg/dL; Low Density Lipoprotein Calc. 67 mg/dL; Potassium 4.5 mmol/L (3.3-5.1); Protein, Total 7.5 g/dL (5.9-8.4); Sodium Level 138 mmol/L (133-145); Total Bilirubin 0.45 mg/dL (0.00-1.30); Triglycerides 186 mg/dL; Very Low Density Lipoprotein 37 mg/dL (5-40); cholesterol:hdl ratio screen 4.04
[2024-11-16 16:17] LABS: Absolute Lymphocyte Count 1.44 X10^3/uL (0.83-4.51); Absolute Neutrophil Count 4.5 X10^3/uL (2.0-7.7); Basophil# 0.05 X10^3/uL; Basophil% 0.7 % (0-1); Eosinophil# 0.08 X10^3/uL; Eosinophils% 1.2 % (0-5); Hematocrit 45.3 % (40-54); Hemoglobin 15.4 g/dL (13.0-16.5); Lymphocyte # 1.44 X10^3/ul (0.83-4.51); Lymphocyte % 21.1 % (19-41); Mean Corpuscular Hgb 32.1 pg (27.0-32.0); Mean Corpuscular Volume 94.4 fL (80-94); Mean Platelet Vol. 10.1 fl (6.2-12.0); Monocyte# 0.68 X10^3/uL; NRBC Flagged by Analyzer 0 % (0-5); Neutrophil # 4.54 X10^3/uL (2.7-7.7); Neutrophil % 66.7 % (47-70); Platelet Count 289 K/mm3 (150-450); RBC Distribution Width CV 14.4 % (11.6-14.6); RBC Distribution Width SD 50.3 fl (35.1-43.9); White Blood Count 6.8 K/mm3 (4.4-11.0)
[2024-11-16 16:52] LABS: ALB/GLOB Ratio 1.4 RATIO (0.9-2.4); AST(SGOT) 20 U/L (<=37); Alanine Aminotransfer ALT/SGPT 26 U/L (<=46); Albumin, Serum 4.3 g/dL (3.4-4.8); Alkaline Phosphatase 105 U/L (40-129); Anion Gap 11 (5-15); BUN 25 mg/dL (4-19); BUN/Creat Ratio 13.4 RATIO (10-20); Calcium,Total 9.6 mg/dL (7.6-11.0); Carbon Dioxide 21.8 mmol/L (21.0-32.0); Chloride 105 mmol/L (98-108); Creatinine, Serum 1.83 mg/dL (0.70-1.20); EST Glomerular Filtration Rate 41 (>60); Globulin 3.1 g/dL (2.2-4.2); Glucose 107 mg/dL (70-99); Phosphorus 2.8 mg/dL (2.7-4.5); Potassium 4.6 mmol/L (3.3-5.1); Protein, Total 7.4 g/dL (5.9-8.4); Sodium Level 138 mmol/L (133-145); Total Bilirubin 0.47 mg/dL (0.00-1.30)
== END 2024-11-16 23:59 | disposition home or self-care (01) ==
PROVIDERS: PCP Family Medicine Geriatric Medicine; Referring Provider Family Medicine Geriatric Medicine; Visit Provider Family Medicine Geriatric Medicine
DX: E78.5 Hyperlipidemia, unspecified (principal); M62.838 Other muscle spasm; R39.11 Hesitancy of micturition; R33.9 Retention of urine, unspecified; I10 Essential (primary) hypertension
CPT/HCPCS: 36415; 80053; 80061; 83735; 84100; 84443; 85025

== ENCOUNTER → 2024-12-15 | Outpatient (CLI) | payer MEDICAID, SELFPAY ==
--- NOTE | 2024-12-15 11:00 | MRI_ITS ---
PROCEDURE: BRAIN WITHOUT CONTRAST 12/15/2024 REASON FOR EXAM: HEADACHES URINARY RETENTION TECHNIQUE: BRAIN WITHOUT CONTRAST Multiplanar and multisequence images were obtained. COMPARISON: 10-10-2023 FINDINGS: No acute or hyperacute infarcts. No intracerebral or extra-axial hematomas. Left cerebellar encephalomalacia with related Wallerian degeneration. Bilateral cerebral periventricular and subcortical as well as basal ganglia and pontine foci and patches of high T 2/FLAIR WI signal. Normal MRI signal of the right cerebellar hemispheres and rest of the brain stem. Dilated ventricular system, cortical sulci and extra-axial CSF spaces. No shift of midline structures. Normal MRI appearance of the petrous temporal bones cerebellopontine angles with no definite masses. Normal MRI appearance of orbital structures, both globes, optic nerves, optic chiasm, optic tracts and optic radiations. Scanned paranasal sinuses are unremarkable. MRI/Brain without Contrast IMPRESSION: No acute infarcts. No intracerebral or extra-axial hematomas. Left cerebellar encephalomalacia Bilateral cerebral and pontine microvascular ischemic changes. Stable Age appropriate brain involutional changes. Stable Reading [facility]
== END | disposition home or self-care (01) ==
LOC: OPMRI 10:22
PROVIDERS: PCP Family Medicine Geriatric Medicine; Referring Provider Family Medicine Geriatric Medicine; Visit Provider Family Medicine Geriatric Medicine
DX: R51.9 Headache, unspecified (principal)
CPT/HCPCS: 70551

== ENCOUNTER → 2025-01-13 | Outpatient (CLI) | payer MEDICAID, SELFPAY ==
[2025-01-13 16:06] LABS: Squamous Epithelial Cells - UA 0 SEEN /hpf (0-5)
[2025-01-13 19:14] LABS: Color, Urine Yellow (Yellow); Glucose, Dipstick Normal (Normal); Ketone-Dipstick Negative (Negative); Leukocyte Esterase-Dipstick Negative /ul (Negative); Nitrite-Dipstick Negative (Negative); Occult Blood-Urine 10 /ul (Negative); Protein-Dipstick 100 mg/dl (Negative); Specific Gravity, Urine 1.025 (1.002-1.030); Urine Bilirubin Dipstick Negative (Negative)
[2025-01-13 20:34] LABS: Mucous, Urine 1+ /hpf (<or=2+)
[2025-01-13 20:35] LABS: Calcium Oxalate Crystals Ur 1+ /hpf (<or=2+); Red Blood Cells-Urine 0-5 SEEN /hpf (0-5)
== END | disposition home or self-care (01) ==
LOC: POLAB3 15:55
PROVIDERS: PCP Family Medicine Geriatric Medicine; Referring Provider Family Medicine Geriatric Medicine; Visit Provider Family Medicine Geriatric Medicine
DX: R33.9 Retention of urine, unspecified (principal); E78.5 Hyperlipidemia, unspecified; M62.838 Other muscle spasm; R39.11 Hesitancy of micturition
CPT/HCPCS: 81001; 87086; 87088

== ENCOUNTER → 2025-02-24 | Outpatient (CLI) | payer MEDICAID, SELFPAY ==
--- NOTE | 2025-02-24 12:41 | US_ITS ---
PROCEDURE: KIDNEY AND BLADDER 02/24/2025 REASON FOR EXAM: URINARY RETENTION TECHNIQUE: KIDNEY AND BLADDER COMPARISON: None FINDINGS: Kidneys: Normal renal sizes, parenchymal thicknesses, and echotextures. [place]: No evidence of hydronephrosis. Cysts or Masses: 1 cm x 1.2 cm x 0.6 cm right renal cyst. Other: RIGHT Kidney Size: 9.5 cm x 4.6 cm x 4.6 cm Volume: 104.37 mL Cortical Thickness (if discernible): 13 mm (>6mm is normal) LEFT Kidney Size: 11.1 cm x 5.4 cm x 5.1 cm Volume: 160.5 mL Cortical Thickness (if discernible): 12 mm (>6mm is normal) Small postvoid residual. Minimal thickening of the bladder wall measuring 4.5 mm. US/Kidney and Bladder IMPRESSION: Small postvoid residual. Reading Location: [id number]
== END | disposition home or self-care (01) ==
LOC: US 12:37
PROVIDERS: PCP Family Medicine Geriatric Medicine; Referring Provider Family Medicine Geriatric Medicine; Visit Provider Family Medicine Geriatric Medicine
DX: R33.9 Retention of urine, unspecified (principal)
CPT/HCPCS: 76770

== ENCOUNTER → 2025-04-22 | Outpatient (CLI) | payer MEDICAID, SELFPAY ==
[2025-04-22 15:29] LABS: Hematocrit 42.4 % (40-54); Hemoglobin 14.6 g/dL (13.0-16.5); Immature Granulocytes Count 0.040 X10^3/uL (0.0-0.0); Mean Corp Hgb Conc 34.4 g/dL (32-36); Mean Corpuscular Volume 96.4 fL (80-94); Mean Platelet Vol. 10.2 fl (6.2-12.0); NRBC Flagged by Analyzer 0 % (0-5); Platelet Count 284 K/mm3 (150-450); RBC Distribution Width CV 13.9 % (11.6-14.6); RBC Distribution Width SD 49.5 fl (35.1-43.9); Red Blood Count 4.40 M/mm3 (4.6-6.2); White Blood Count 7.0 K/mm3 (4.4-11.0)
[2025-04-22 16:53] LABS: Cholesterol 165 mg/dL (<=200); Low Density Lipoprotein Calc. 88 mg/dL; PSA,Total - Annual Screen 0.56 ng/mL (0.02-4.00); Triglycerides 263 mg/dL; Very Low Density Lipoprotein 53 mg/dL (5-40); Vitamin D,25 Hydroxy 17.6 ng/mL (30-100); cholesterol:hdl ratio screen 5.00
[2025-04-22 16:56] LABS: AST(SGOT) 17 U/L (<=37); Alanine Aminotransfer ALT/SGPT 18 U/L (<=46); Albumin, Serum 3.9 g/dL (3.4-4.8); Alkaline Phosphatase 80 U/L (40-129); Anion Gap 13 (5-15); BUN 28 mg/dL (4-19); BUN/Creat Ratio 14.9 RATIO (10-20); Calcium,Total 9.3 mg/dL (7.6-11.0); Carbon Dioxide 20.5 mmol/L (21.0-32.0); Chloride 106 mmol/L (98-108); Globulin 3.2 g/dL (2.2-4.2); Glucose 146 mg/dL (70-99); Potassium 4.5 mmol/L (3.3-5.1)
[2025-04-22 23:07] LABS: Xtra Tube Kwok EXTRA TUBE
== END | disposition home or self-care (01) ==
PROVIDERS: PCP Family Medicine Geriatric Medicine; Visit Provider Family Medicine Geriatric Medicine
DX: I10 Essential (primary) hypertension (principal); E78.5 Hyperlipidemia, unspecified; E03.9 Hypothyroidism, unspecified; E55.9 Vitamin D deficiency, unspecified; Z12.5 Encounter for screening for malignant neoplasm of prostate
CPT/HCPCS: 84153; 36415; 80053; 80061; 82306; 84443; 85025; G0103

== ENCOUNTER → 2025-06-02 | Outpatient (CLI) | payer MEDICARE, MEDICAID, SELFPAY ==
--- NOTE | 2025-06-02 15:04 | CT_ITS ---
PROCEDURE: LOW DOSE CT LUNG SCREENING 06/02/2025 REASON FOR EXAM: NICOTINE DEPENDENCY 3 pack per day times 45 years, quit 5 years ago TECHNIQUE: Procedure Code: [id number] Modality: CT Procedure: LOW DOSE CT LUNG SCREENING Coronal and Sagittal reconstruction series were provided. One or more dose reduction techniques were used (e.g., Automated exposure control, adjustment of the mA and/or kV according to patient size, use of iterative reconstruction technique). REFERENCE LINK: [employer] Lung-RADS RADIATION DOSE SUMMARY: CTDlvol: 4.02 mGy DLP: 140.44 mGycm COMPARISON: 10/08/2023 FINDINGS: Lung windows show chronic interstitial changes in both lung garay with nonspecific pleural thickening in both hemithoraces and dependent atelectasis. Tree-in-bud opacifications noted in both lung garay suggesting small airways inflammation there is no organized infiltrate, effusion, or suspicious noncalcified mass or nodule. Limited soft tissue windows show a normal-appearing thyroid gland. No suspicious axillary mediastinal or perihilar adenopathy. Peripheral calcifications in the thoracic aorta without aneurysm. There are calcified coronary vessels. Bony structures show degenerative change. Limited cuts through the upper abdomen do not show a suspicious abnormality. CT/Low Dose CT Lung Screening IMPRESSION: Chronic interstitial changes in both lung garay with dependent atelectasis and small airways inflammation. No organized infiltrate effusion or suspicious noncalcified mass or nodule Coronary artery calcification (CAC) is is present Lung-RADS Category: 1 NEGATIVE. RECOMMEND 12-MONTH SCREENING LDCT. Other Significant Findings: Reading Location: [place] [id number]
== END | disposition home or self-care (01) ==
PROVIDERS: PCP Family Medicine Geriatric Medicine; Referring Provider Family Medicine Geriatric Medicine; Visit Provider Family Medicine Geriatric Medicine
DX: F17.210 Nicotine dependence, cigarettes, uncomplicated (principal)
CPT/HCPCS: 71271